=== PATIENT | female | born 1935 | race Caucasian/White ===

== ENCOUNTER 2017-04-24 11:43 | Emergency (ER) | payer OTHER, BC ==
[~2017-04-24] VITALS: Ht 157.5 cm; Wt 92.8 kg
[~2017-04-24 11:43] MED LIST: ACET325T96 PO; ASCO100061 PO; B-CO-25 PO; CALC-478 PO; CHOL1CAP57 PO; LORA-741 PO; MULT-188 PO; MULT-513 PO; OMEGCAP2 PO; SIMV10TA5 PO; VALS160T58 PO; WARF-246 PO
[2017-04-24 11:45] VITALS: TEMP 36.6; Ht 157.5 cm; Wt 92.8 kg
--- NOTE | 2017-04-24 13:33 | DIAGNOSTIC IMAGING REPORT ---
SINGLE VIEW PELVIS CLINICAL HISTORY: Right leg pain. FINDINGS: An AP view of the pelvis is compared to study dated 06/04/2015. The skeletal structures are osteopenic. No fracture is identified in the hips or bony pelvis. Moderate arthritic change and joint space narrowing is seen in the hips bilaterally. Sclerotic change is noted the pubic symphysis. The sacroiliac joints are normal in appearance. Lumbosacral spondylosis is partially visualized. Enthesophytes arise from the greater trochanters of the proximal femora. The overlying soft tissues are within normal limits. There is a nonobstructed abdominal bowel gas pattern. Retained enteric contrast is present within scattered colonic diverticula. IMPRESSION: Osteopenia and arthritic change as above. No acute bony abnormality is seen in the hips or pelvis. Electronically signed by: Sammy Piedra M.D. 04/24/2017 1:32 PM Dictated Date/Time: 04/24/2017 1:30 PM
--- NOTE | 2017-04-24 13:46 | DIAGNOSTIC IMAGING REPORT ---
RIGHT FEMUR 3 VIEWS CLINICAL HISTORY: Right leg pain. FINDINGS: AP, frog-leg, and lateral views of the right femur are correlated with radiographs of the right tibia and fibula dated 10/18/2015. The skeletal structures are osteopenic. There is no radiographic evidence of right femoral fracture. Arthritic change is noted in the right hip and knee joints. The overlying soft tissues are within normal limits. The visualized right bony pelvis appears preserved. IMPRESSION: There is no radiographic evidence of right femoral fracture. Electronically signed by: Sammy Piedra M.D. 04/24/2017 1:44 PM Dictated Date/Time: 04/24/2017 1:43 PM
--- NOTE | 2017-04-24 13:57 | DIAGNOSTIC IMAGING REPORT ---
LUMBAR SPINE 5 VIEWS CLINICAL HISTORY: Low back pain. Right leg soreness. No reported history of trauma. FINDINGS: Five views of the lumbar spine are correlated with MRI of the lumbar spine dated 11/14/2015. The skeletal structures are osteopenic. There is no radiographic evidence of acute fracture or malalignment. Vertebral body height is maintained throughout the lumbar spine. Hyperlordosis is noted. There is minimal retrolisthesis of L2-L3 and L3-L4. Alignment is otherwise preserved. There are large anterior and lateral marginal osteophytes. The transverse and spinous processes are grossly intact. There is no evidence of spondylolysis. There is moderate degenerative disc space narrowing seen at L1-L2, L4-L5, and L5-S1 with mild endplate sclerosis at these levels. Only mild narrowing is seen at the remaining lumbar levels. Multilevel vacuum disc phenomenon is noted. There is advanced facet arthropathy in the mid to lower lumbar spine. The visualized bony pelvis appears intact. A nonobstructed abdominal bowel gas pattern is identified noting moderate colonic fecal retention. IMPRESSION: 1. No acute bony abnormality is identified in the lumbosacral spine. 2. Osteopenia and lumbosacral spondylosis as detailed above. Dictated: 04/24/2017 1:37 PM Transcribed: 04/24/2017 1:56 PM [facility] Electronically signed by: Sammy Piedra M.D. 04/24/2017 1:57 PM Dictated Date/Time: 04/24/2017 1:37 PM
[2017-04-24] MEDS ORDERED: METH4PAK PO (14:24)
--- NOTE | 2017-04-24 14:25 | EMERGENCY ROOM VISIT NOTE ---
History First contact with patient: 12:20 Chief Complaint: HIP PAIN Stated Complaint: RIGHT HIP PAIN History of Present Illness The patient is a 81 year old female who presents to the Emergency Room with complaints of right hip pain. The patient has a history of low back pain and surgery last year. She has had pain in the right hip over the last several days. The patient states that she has been gardening, cleaning on her hands and knees. She states that the pain got worse when she climbed up on a stool to clean windows. She denies any falls. She denies any numbness, tingling or weakness. She denies any abdominal pain, nausea or vomiting. She denies any loss of bowel or bladder control. She rates her discomfort an 8/10. She denies any pain in her chest or trouble breathing. She denies any abdominal pain, nausea or vomiting. She has tried to get in with orthopedics but has not been able to secure an appointment. Review of Systems A 10 system review of systems was completed with positives and pertinent negatives listed in the HPI. Past Medical/Surgical History Medical Problems: (1) Degenerative disc disease (2) Degenerative disc disease, lumbar (3) DVT (deep venous thrombosis) (4) Hypertension (5) Uterine cancer Surgical Problems: (1) H/O: hysterectomy (2) Hx of appendectomy Social History Smoking Status: Never Smoker Alcohol Use: none Drug Use: none Current/Historical Medications Scheduled Ascorbic Acid (Ascorbic Acid), 1,000 MG PO QAM B-Complex W/ Folic Acid (Super B Complex Maxi), 1 TAB PO QPM Oyxyxgw-Akjbbjdjn-Pgen (Calcium & Magnesium + Zin 334-134-5 mg), 1 TAB PO QPM Cholecalciferol (Vitamin D3), 1,000 UNITS PO QPM Methylprednisolone (Medrol Dosepak), 1 PKT PO UD Multiple Vitamins W/ Minerals (Ocuvite), 1 TAB PO QAM Multivitamins/Minerals (Mvi With Minerals), 1 TAB PO QAM [place]-3 Fatty Acids (Fish Oil), 3 TAB PO DAILY Simvastatin (Zocor), 10 MG PO HS Valsartan/Hctz (Diovan Hct 160MG/12.5MG), 1 TAB PO QAM Warfarin Sodium (Warfarin Sodium), 5 TAB PO 5XWK Warfarin Sodium (Warfarin Sodium), 2.5 TAB PO 2XWK Scheduled PRN Acetaminophen Tab (Tylenol), 325 MG PO TID PRN for Pain Lorazepam (Ativan), 0.0125 MG PO for Anxiety Allergies Coded Allergies: Sertraline (Verified Adverse Reaction, Unknown, ANTIDEPRESSANTS-DIDN'T FEEL GOOD-MADE FEEL WORSE, 04/24/17) Physical Exam Vital Signs Date Time Temp Pulse Resp B/P Pulse Ox O2 Delivery O2 Flow Rate FiO2 04/24/17 14:29 67 166/94 97 Room Air 04/24/17 11:45 36.6 70 20 143/83 95 Room Air Physical Exam VITALS: Vitals are noted on the nurse's note and reviewed by myself. Vital signs stable. GENERAL: This is an 81-year-old female, in no acute distress, nondiaphoretic, well-developed well-nourished. SKIN: The skin was without rashes, erythema, edema, or bruising. There is no tenting of the skin. Capillary reflex less than 2 seconds. HEAD: Normocephalic atraumatic. EARS: External auditory canals clear, tympanic membranes pearly starks without erythema or effusion bilaterally. EYES: Pupils equal round and reactive to light and accommodation. Conjunctivae without injection, sclerae without icterus. Extraocular movements intact. NOSE: Patent, turbinates without inflammation or discharge. No sinus tenderness. MOUTH: Mucous membranes moist. Tonsils are not enlarged. Pharynx without erythema or exudate. Uvula midline. Airway patent. Tongue does not deviate. NECK: Supple without nuchal rigidity. No lymphadenopathy. No thyromegaly. Cervical spine is nontender. No JVD. HEART: Regular rate and rhythm without murmurs gallops or rubs. LUNGS: Clear to auscultation bilaterally without wheezes, rales or rhonchi. No retractions or accessory muscle use. ABDOMEN: Positive bowel sounds x 4. Soft, nontender, without masses or organomegaly. MUSCULOSKELETAL: No muscle atrophy, erythema, or edema noted. Full range of motion without joint tenderness in all extremities. No tenderness to palpation. Strength 5/5 throughout. NEURO: Patient was alert and oriented to person place and time. Normal sensation to light and sharp touch. Deep tendon reflexes 2+ throughout. No focal neurological deficits. Medical Decision & Procedures ER Provider Diagnostic Interpretation: RIGHT FEMUR 3 VIEWS CLINICAL HISTORY: Right leg pain. FINDINGS: AP, frog-leg, and lateral views of the right femur are correlated with radiographs of the right tibia and fibula dated 10/18/2015. The skeletal structures are osteopenic. There is no radiographic evidence of right femoral fracture. Arthritic change is noted in the right hip and knee joints. The overlying soft tissues are within normal limits. The visualized right bony pelvis appears preserved. IMPRESSION: There is no radiographic evidence of right femoral fracture. LUMBAR SPINE 5 VIEWS CLINICAL HISTORY: Low back pain. Right leg soreness. No reported history of trauma. FINDINGS: Five views of the lumbar spine are correlated with MRI of the lumbar spine dated 11/14/2015. The skeletal structures are osteopenic. There is no radiographic evidence of acute fracture or malalignment. Vertebral body height is maintained throughout the lumbar spine. Hyperlordosis is noted. There is minimal retrolisthesis of L2-L3 and L3-L4. Alignment is otherwise preserved. There are large anterior and lateral marginal osteophytes. The transverse and spinous processes are grossly intact. There is no evidence of spondylolysis. There is moderate degenerative disc space narrowing seen at L1-L2, L4-L5, and L5-S1 with mild endplate sclerosis at these levels. Only mild narrowing is seen at the remaining lumbar levels. Multilevel vacuum disc phenomenon is noted. There is advanced facet arthropathy in the mid to lower lumbar spine. The visualized bony pelvis appears intact. A nonobstructed abdominal bowel gas pattern is identified noting moderate colonic fecal retention. IMPRESSION: 1. No acute bony abnormality is identified in the lumbosacral spine. 2. Osteopenia and lumbosacral spondylosis as detailed above. SINGLE VIEW PELVIS CLINICAL HISTORY: Right leg pain. FINDINGS: An AP view of the pelvis is compared to study dated 06/04/2015. The skeletal structures are osteopenic. No fracture is identified in the hips or bony pelvis. Moderate arthritic change and joint space narrowing is seen in the hips bilaterally. Sclerotic change is noted the pubic symphysis. The sacroiliac joints are normal in appearance. Lumbosacral spondylosis is partially visualized. Enthesophytes arise from the greater trochanters of the proximal femora. The overlying soft tissues are within normal limits. There is a nonobstructed abdominal bowel gas pattern. Retained enteric contrast is present within scattered colonic diverticula. IMPRESSION: Osteopenia and arthritic change as above. No acute bony abnormality is seen in the hips or pelvis. ED Course The patient was seen and examined. Previous visits were reviewed. Medication list was reviewed. The patient does not have any neurologic deficit on exam or by history. The patient complains of right hip pain and states she has been "overdoing it." X-rays reveal osteoarthritis. The potentially be an exacerbation of the arthritis. It is possible this could be radicular pain. Bursitis of the hip is also considered. The patient has been taking Tylenol. She does take Coumadin and therefore she should avoid anti-inflammatories. The patient states that steroids typically help her and was adamant that she would like to try prednisone. She was counseled on the risk of potential bleeding when taking a combination with the Coumadin. The patient should contact orthopedics on Wednesday for a follow-up appointment. Should return to the ER sooner with any worsening symptoms. The patient was also seen and examined by Dr. Khan who agrees with the assessment and treatment plan. Medical Decision DIFFERENTIAL DIAGNOSIS: Lumbar strain, degenerative disc disease, spondylolisthesis, herniated disc, spinal stenosis, osteoporosis, fracture, cauda equina syndrome, neoplasm, infection, inflammatory arthritis, among others. Impression Primary Impression: Osteoarthritis Additional Impression: Hip pain Departure Information Dispostion Home / Self-Care Condition GOOD Prescriptions Methylprednisolone (MEDROL DOSEPAK) 4 Mg Bruce 1 PKT PO UD, #1 PKT Prov: Rebecca Marks PA-C 04/24/17 Referrals Mynor Rivero DO (PCP) Patient Instructions [facility], Osteoarthritis Additional Instructions Medrol Dosepak as prescribed, until finished Continue the Tylenol according to package instructions Rest Contact orthopedics first thing Wednesday for a follow-up appointment Return with any worsening symptoms Problem Qualifiers Primary Impression: Osteoarthritis
[2017-04-24 14:29] VITALS: BP 166/94; PULSE 67; O2SAT 97
--- NOTE | 2017-04-24 15:12 | EMERGENCY ROOM VISIT NOTE ---
ED Visit Note First contact with patient: 12:20 I have personally evaluated and examined this patient. I agree with assessment and plan of Rosanne Marks PA-C.
[2017-09-14] MEDS ORDERED: MECL1TAB40 PO (11:59)
[2017-09-14] MEDS ORDERED: MULT-190 PO (11:59)
[2017-09-14] MEDS ORDERED: [UNRECOGNIZED DRUG - OTHER] PO (11:59)
[2017-09-14] MEDS ORDERED: VNTHFA/IN INH (12:06)
[2017-10-04] MEDS ORDERED: ENOX80IN SQ (08:08)
[2017-10-06] MEDS ORDERED: ULT50X PO (09:05)
== END 2017-04-24 14:33 | disposition home or self-care (01) ==
LOC: C.EDB 11:45 → C.EDD 14:33
DX: M16.11 Unilateral primary osteoarthritis, right hip (principal); M25.551 Pain in right hip; M85.89 Other specified disorders of bone density and structure, multiple sites; M47.816 Spondylosis without myelopathy or radiculopathy, lumbar region; M51.36 Other intervertebral disc degeneration, lumbar region; Z86.718 Personal history of other venous thrombosis and embolism; I10 Essential (primary) hypertension; Z85.42 Personal history of malignant neoplasm of other parts of uterus; Z90.710 Acquired absence of both cervix and uterus; Z79.01 Long term (current) use of anticoagulants

== ENCOUNTER 2019-01-20 07:12 | Inpatient (IN) ==
--- NOTE | 2018-12-26 09:54 | PAT Medication Instructions ---
Medication Instructions Date of Service December 26, 2018 Home Medications Calcium, Magnesium, Vitamin D, Zinc 1 dose PO DAILY ascorbic acid (vitamin C) [Vitamin 1 g PO DAILY cholecalciferol (vitamin D3) 1,000 unit PO DAILY losartan-hydrochlorothiazide 1 tab PO QAM multivitamin [Multiple Vitamins] 1 tab PO 4XWK mv, min #36-iron,carbonyl-FA 1 dose PO 3XWK simvastatin 10 mg PO HS vitamin B complex 1 cap warfarin 2.5 mg PO UD warfarin 5 mg PO 6XWK ASK your prescriber and surgeon warfarin 2.5 mg PO UD warfarin 5 mg PO 6XWK DO NOT take the morning of surgery Calcium, Magnesium, Vitamin D, Zinc 1 dose PO DAILY ascorbic acid (vitamin C) [Vitamin 1 g PO DAILY cholecalciferol (vitamin D3) 1,000 unit PO DAILY losartan-hydrochlorothiazide 1 tab PO QAM multivitamin [Multiple Vitamins] 1 tab PO 4XWK mv, min #36-iron,carbonyl-FA 1 dose PO 3XWK vitamin B complex 1 cap Other Notes If you have any questions please call us at [phone] or [phone] or [phone] or [phone]
--- NOTE | 2018-12-26 10:24 | Anesthesiology Consultation ---
Date of Service December 26, 2018 Assessment & Plan (1) Encounter for pre-operative examination: Plan: - Check coags AM DOS (patient to have lovenox bridging prior to surgery) - Cardio= 01/09/19= asymptomatic from a cardiac standpoint. "can proceed with her surgery from a cardiac standpoint." Chart Review Chart Review: Acceptable Risk for Surgery and Patient seen in Pre Admission Testing Teaching & Discussion Pre-Anesthesia Teaching/Discussion Notes: Instructed NPO after midnight before surgery,except medications with 15 cc of water. Medication instructions provided according to the PAT guidelines. History Surgery Operation Date: 01/20/19 07:00 Proposed Procedures p Left Anterior Total Hip Replacement - Mynor Rivero, Height/Weight Height: 5 ft 1 in Weight: 91.8 kg Allergies Allergy/AdvReac Type Severity Reaction Status Date / Time adhesive Allergy Unknown SKIN Verified 12/12/18 09:03 PULLED OFF WITH TAPE sertraline AdvReac Unknown DIDN'T Verified 12/26/18 10:23 WORK; "FELT WORSE" Medications Home Medications Medication Instructions Recorded Confirmed Last Taken Calcium, Magnesium, Vitamin D, Zinc 1 dose PO DAILY 12/12/18 12/12/18 Unknown ascorbic acid (vitamin C) [Vitamin 1 g PO DAILY 12/12/18 12/12/18 Unknown C] cholecalciferol (vitamin D3) 1,000 unit PO DAILY 12/12/18 12/12/18 Unknown [Vitamin D3] losartan-hydrochlorothiazide 1 tab PO QAM 12/12/18 12/12/18 Unknown multivitamin [Multiple Vitamins] 1 tab PO 4XWK 12/12/18 12/12/18 Unknown mv, min #36-iron,carbonyl-FA 1 dose PO 3XWK 12/12/18 12/12/18 Unknown [Geritol Complete] simvastatin 10 mg PO HS 12/12/18 12/12/18 Unknown vitamin B complex 1 cap PO DAILY 12/12/18 12/12/18 Unknown warfarin 2.5 mg PO UD 12/12/18 12/12/18 Unknown warfarin 5 mg PO 6XWK 12/12/18 12/12/18 Unknown Past Medical History Medical History Anxiety Arthritis History of DVT (deep vein thrombosis) LLE (2000) S/P TRAUMA/FRACTURE- ON WARFARIN History of uterine cancer Hypertension Obesity Sleep apnea CPAP Past Surgical History Surgical History History of appendectomy History of back surgery History of colonoscopy History of eye surgery EYE LID SURGERY History of hysterectomy TOTAL History of open reduction and internal fixation (ORIF) procedure LUE/ELBOW History of total right hip arthroplasty Right MARIA L= 10/04/17= SAB x 3 attempts at "L3" at [facility] Past Anesthesia History No Family Hx of Anesthesia Complications and Other Patient reports "hearing pounding" with right MARIA L. History of PONV No Motion Sickness Screening History of Motion Sickness: Yes (OCCASIONAL) Social History Smoking Status: Never smoker Do You Dip or Chew Tobacco: No Hx Alcohol Use: No Hx Substance Use: No substance use type: does not use Exercise / Class Metabolic Activity II 4-5 Yardwork/Stairs/Walk up hill Review of Systems Patient denies chest pain, shortness of breath, dyspnea on exertion, wheezing, palpitations. Physical Exam Vital Signs VITALS BP 133/76 P 70 TEMP 97.5 SP02 92%RA RESP 18 Full neck and c-spine range of motion. Full TMJ range of motion. 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 Cannot rule out inferior infarct ( cited on/before 12/02/15 per cardio). Chest X-Ray Date: 12/26/18 Findings: + NAD Chronic change throughout both hemithoraces. Laboratory Results 12/26/18 10:50 12/26/18 10:50 Blood Type O Positive 12/26/18 10:55 Antibody Screen NEGATIVE 12/26/18 10:55 PT 22.2 Seconds (9.0-12.0) H 12/26/18 10:50 INR 2.3 (0.9-1.1) H 12/26/18 10:50 APTT 38.0 Seconds (21.0-31.0) H 12/26/18 10:50 Surgeon made aware of low WBC.
--- NOTE | 2018-12-26 11:22 | XRay Report ---
XR chest Pre-admission PA/Lat CLINICAL HISTORY: pat preoperative evaluation COMPARISON STUDY: 12/02/2015 FINDINGS: Chronic change throughout both hemithoraces. Moderate degenerative changes of the shoulders bilaterally. No acute infiltrate. Degenerative changes thoracic spine considered stable. IMPRESSION: Chronic change. No acute process. The above report was generated using voice recognition software. It may contain grammatical, syntax or spelling errors. Electronically signed by: Cheko Bella M.D. 12/26/2018 11:21 AM
[2018-12-26 12:26] LABS: Basophils # (auto) 0.04 K/uL (0-0.2); Basophils % (auto) 1.1 %; Eosinophils # (auto) 0.11 K/uL (0-0.5); Hematocrit (blood only) 43.5 % (37-47); Hemoglobin 14.6 g/dL (12.0-16.0); Immature Granulocytes # (auto) 0.01 K/uL (0.00-0.02); Immature Granulocytes % (auto) 0.3 %; Lymphocytes # (auto) 1.37 K/uL (1.2-3.4); Lymphocytes % (auto) 37.8 %; Mean Corpuscular Hgb Conc 33.6 g/dL (32-36); Mean Platelet Volume 10.4 fL (7.4-10.4); Monocytes # (auto) 0.45 K/uL (0.11-0.59); Monocytes % (auto) 12.4 %; Neutrophils # (auto) 1.64 K/uL (1.4-6.5); Neutrophils % (auto) 45.4 %; Platelet Count 251 K/uL (130-400); RDW Coefficient of Variation 13.8 % (11.5-14.5); RDW Standard Deviation 45.9 fL (36.4-46.3); Red Blood Count 4.78 M/uL (4.2-5.4); White Blood Count 3.62 K/uL (4.8-10.8)
[2018-12-26 12:34] LABS: Calcium 9.8 mg/dl (8.5-10.1); Creatinine Clr Calc Pharmacy 48.7 ml/min; Est GFR (African American) 67.2
[2018-12-26 12:39] LABS: INR 2.3 (0.9-1.1); Partial Thromboplastin Ratio 1.5; Prothrombin Time 22.2 Seconds (9.0-12.0)
--- NOTE | 2019-01-18 07:46 | History & Physical Report ---
Date of Service January 18, 2019 Assessment & Plan (1) Osteoarthritis of left hip: We will proceed with a left anterior total hip arthroplasty. Postoperatively she will be bridged with Lovenox and started back on her Coumadin. She will be kept in the hospital for postop medical management. She plans to use [facility] upon discharge. Present on Admission?: Yes History of Present Illness Chief Complaint: Primary osteoarthritis of the left hip Primary Care Provider: Nicolette Jernigan Patient is a pleasant 83-year-old female who I did a right total hip arthroplasty on September 2017. She is done very well with that. Unfortunately she is having left hip pain. X-rays and clinical examination have been diagnostic for primary also arthritis of the left hip. After failing conservative treatment, she has elected proceed with a left total hip arthroplasty. Allergies Allergy/AdvReac Type Severity Reaction Status Date / Time adhesive Allergy Unknown SKIN Verified 12/12/18 09:03 PULLED OFF WITH TAPE sertraline AdvReac Unknown DIDN'T Verified 12/26/18 10:23 WORK; "FELT WORSE" Home Medications Home Medications Medication Instructions Recorded Confirmed Type Calcium, Magnesium, Vitamin D, Zinc 1 dose PO DAILY 12/12/18 12/12/18 History ascorbic acid (vitamin C) [Vitamin 1 g PO DAILY 12/12/18 12/12/18 History C] cholecalciferol (vitamin D3) 1,000 unit PO DAILY 12/12/18 12/12/18 History [Vitamin D3] losartan-hydrochlorothiazide 1 tab PO QAM 12/12/18 12/12/18 History multivitamin [Multiple Vitamins] 1 tab PO 4XWK 12/12/18 12/12/18 History mv, min #36-iron,carbonyl-FA 1 dose PO 3XWK 12/12/18 12/12/18 History [Geritol Complete] simvastatin 10 mg PO HS 12/12/18 12/12/18 History vitamin B complex 1 cap PO DAILY 12/12/18 12/12/18 History warfarin 2.5 mg PO UD 12/12/18 12/12/18 History warfarin 5 mg PO 6XWK 12/12/18 12/12/18 History Past Med/Surg History Medical History Anxiety Arthritis History of DVT (deep vein thrombosis) LLE (2000) S/P TRAUMA/FRACTURE- ON WARFARIN History of uterine cancer Hypertension Obesity Sleep apnea CPAP Surgical History History of appendectomy History of back surgery History of colonoscopy History of eye surgery EYE LID SURGERY History of hysterectomy TOTAL History of open reduction and internal fixation (ORIF) procedure LUE/ELBOW History of total right hip arthroplasty Right MARIA L= 10/04/17= SAB x 3 attempts at "L3" at [facility] Social History Current Living Situation: Alone Other Information That Helps Us Care for You: No Feels Safe at Home: Yes Smoking Status: Never smoker Do You Dip or Chew Tobacco: No Hx Alcohol Use: No Hx Substance Use: No Beliefs That Will Affect Care: None Preferred Language: Croatian Communication Ability: Effective Watch Crystal Molder Required: No Review of Systems All systems reviewed & are unremarkable except as noted in HPI & below Physical Exam 2 Constitutional: WD/WN, vitals as above Eyes: PERRL, conjunctivae normal, anicteric sclerae ENMT: external ear and nose normal, oropharynx normal Neck: trachea midline, no thyromegaly Respiratory: normal respiratory effort Cardiovascular: RRR, no murmur, no edema Gastrointestinal (Abdomen): normal bowel sounds, soft, nontender, no hepatosplenomegaly Musculoskeletal: Physical examination of the left hip reveals decreased range of motion with flexion, internal and external rotation. There is significant groin pain with forced internal rotation of the hip his leg lengths are essentially equal. Psychiatric: A+Ox3, euthymic affect Results & Data Diagnostic Findings Radiographs of the left hip and pelvis demonstrate advanced osteoarthritis with joint space narrowing osteophyte formation and [id number] articulation.
[~2019-01-20 07:12] MED LIST changes: -ACET325T96 PO; +ACETAMINOPHEN 500 MG TAB PO SCH; -ASCO100061 PO; -B-CO-25 PO; +BUPIVACAINE 0.5 % 5 MG/1 ML PF 10ML VIAL ONE; -CALC-478 PO; -CHOL1CAP57 PO; +FAMOTIDINE 20 MG TAB PO SCH; +GABAPENTIN 300 MG PO SCH; -LORA-741 PO; +LR 60ML/HR IV SCH; -MULT-188 PO; -MULT-513 PO; -OMEGCAP2 PO; +ROPIVACAINE 0.5% HCL/PF 150 MG, BUPIVACAINE 0.5% MPF 30 ML, EPINEPHrine 30MG/30ML (OR U... INFIL SCH; -SIMV10TA5 PO; +TRANEXAMIC ACID 1,000 MG **IV Intra-op IV SCH; +TRANEXAMIC ACID 1,000 MG **IV Pre-op IV SCH; -VALS160T58 PO; -WARF-246 PO
[2019-01-20] MEDS ORDERED: fentaNYL citrate 100 MCG/2 ML VIAL ONE (07:22)
[2019-01-20] MEDS ORDERED: PROPOFOL IV EMULSION 10 MG/ML 20 ML VIAL IV ONE (07:22)
[2019-01-20] MEDS ORDERED: MIDAZOLAM HCL 1 MG/ML 2ML VIAL ONE (07:23)
[2019-01-20] MEDS: LR 500ML BOLUS, THEN 15ML/HR IV SCH ×6 (08:20→14:55)
[2019-01-20 08:23] LABS: INR 1.1 (0.9-1.1); Partial Thromboplastin Ratio 1.1; Partial Thromboplastin Time 29.1 Seconds (21.0-31.0); Prothrombin Time 11.1 Seconds (9.0-12.0)
--- NOTE | 2019-01-20 09:26 | History & Physical Bridge Note ---
Date of Service January 20, 2019 History & Physical Bridge Note I have examined the patient, reviewed the History & Physical and in the interval since the performance of the History & Physical I have noted the following changes of clinical significance: no changes noted
[2019-01-20] MEDS ORDERED: POVIDONE-IODINE OP SOLN 30 ML BTL ONE (09:52)
[2019-01-20] MEDS ORDERED: ORTHO JOINT ANESTHETIC ONE (09:52)
[2019-01-20] MEDS ORDERED: PHENYLEPHRINE 100MCG/ML 5ML SYR IV PRN (10:06)
[2019-01-20] MEDS ORDERED: HYDROmorphone INJ 1 MG/ML SYRINGE IV PRN (10:06)
[2019-01-20] MEDS ORDERED: KETOROLAC 30 MG/ML VIAL IV PRN (10:06)
[2019-01-20] MEDS ORDERED: ONDANSETRON INJ 2 MG/ML 2 ML VIAL IV PRN ×2 (10:06→12:24)
[2019-01-20] MEDS ORDERED: ATROPINE SULFATE 0.1 MG/ML 10ML SYR IV PRN (10:06)
[2019-01-20] MEDS ORDERED: ePHEDrine sulfate 50 MG/ML AMP IV PRN (10:06)
[2019-01-20] MEDS: CEFAZOLIN 2000MG 2,000 MG/15 ML SYR IV SCH ×3 (10:39→19:40)
--- NOTE | 2019-01-20 12:21 | Operative Report ---
Post Operative Report Pre & Post Diagnosis Operation Date: 01/20/19 10:00 Pre-Op Diagnosis: Left Hip Degenerative Joint Disease Post-Op Diagnosis: Left Hip Degenerative Joint Disease Procedure Operation Date: 01/20/19 10:00 Actual Procedures p Left Anterior Total Hip Replacement(Left) - Mynor Rivero DO Surgeon Mynor Rivero DO Csr Mynor Suarez PAC Estimated Blood Loss 250 Findings Consistent with Post-Op Diagnosis Specimens Left femoral head Complications none Disposition Disposition: Recovery Room Indications Patient is a pleasant 83-year-old female who is been dealing with chronic increasing left hip pain. X-rays and clinical examination were diagnostic for primary osteoarthritis of her left hip. After failing conservative treatment, she is elected proceed with a left total hip arthroplasty. Description of Procedure Implants used Biomet Taperloc total hip arthroplasty system with a size 15 Taperloc stem, a 52 mm G7 cup with a 25mm screw, an E1 polyethylene liner, a 36 mm ceramic head with a 0 neck. Patient arrived at the hospital for the above procedure. They were seen in the preoperative holding area and the operative extremity was identified and signed. They were given a spinal anesthetic. They were given a preoperative antibiotic and TXA. They were taken back To the operating room and laid on the table in the supine position. The leg was brought out through a Puristst leg positioner. The hip was then prepped and draped in sterile fashion. A timeout was done and the patient in upper extremities properly identified. An anterior approach was used. Dissection was taken down through the fascia and the tensor muscle belly was retracted laterally and the rectus was retracted medially. The circumflex vessels were identified and ligated. The capsule was then incised and tagged for later repair. The femoral neck was then cut and the femoral head was removed. The acetabulum was exposed. Time was spent doing a complete circumferential labral release. Sequential reaming of the acetabulum up to a size 51 reamer was done. Final reamings were done under fluoroscopy to ensure appropriate version. A Biomet 52 mm G7 cup was then impacted into place. A single 25 mm screw was placed. The E1 polyethylene liner was then snapped into place. Surrounding soft tissues were then injected with 100 cc of an orthopedic pain control cocktail. The proximal femur was then exposed. Sequential broaching up to a size 15 broach was done. Off that broach a size 36 head with a 0 neck was trialed. The hip was reduced and fluoroscopic images showed anatomic alignment of the implants in acceptable length. The broach was removed. The final size 15 high offset Taperloc stem was then impacted into place. A ceramic 36 mm head with a 0 neck was then impacted into place in the hip was reduced. Final fluoroscopic images showed anatomic reduction of the hip. The capsule was then closed with # 1 Vicryl suture. A dilute betadyne lavage was then done for 3 minutes. The joint was then irrigated with normal saline solution. The fascia was closed with #1 PDS suture. Skin was closed with 2-0 Vicryl, geno, and a Kate VAC dressing. The patient was then transferred to a hospital bed and taken to the post anesthesia care unit in stable condition. They tolerated the procedure well. I attest to the content of the Intraoperative Record and any orders documented therein. Any exceptions are noted below.
[2019-01-20] MEDS ORDERED: OXYCODONE HCL IR 5 MG TAB (IMMEDIATE RELEASE) PO PRN (12:24)
[2019-01-20] MEDS ORDERED: BISACODYL 10 MG SUPP PR PRN (12:24)
[2019-01-20] MEDS ORDERED: HYDROmorphone INJ 0.5 MG/0.5 ML SYR IV PRN (12:24)
[2019-01-20] MEDS ORDERED: MAGNESIUM HYDROXIDE SUSP 30 ML UDC PO PRN (12:24)
[2019-01-20] MEDS ORDERED: NALOXONE HCL 0.4 MG/1 ML VIAL/CARP IV PRN (12:24)
[2019-01-20] MEDS ORDERED: METOCLOPRAMIDE HCL INJ 5 MG/ML 2 ML VIAL IV PRN (12:24)
--- NOTE | 2019-01-20 12:51 | Fluoroscopy Report ---
FL hip LT 1V CLINICAL HISTORY: LEFT ANTERIOR MARIA L COMPARISON STUDY: None. FLUOROSCOPY TIME: 27 seconds. FINDINGS: 2 fluoroscopic spot images of the left hip demonstrate a left total hip arthroplasty. The h ardware is intact. No fracture or dislocation. IMPRESSION: Fluoroscopy provided for left total hip arthroplasty. Electronically signed by: Musa Spears M.D. 01/20/2019 12:50 PM
--- NOTE | 2019-01-20 13:08 | XRay Report ---
PELVIS AND LEFT HIP 2 VIEWS CLINICAL HISTORY: Hip arthroplasty COMPARISON: 10/04/2017 DISCUSSION: The right-sided surgical drain and skin geno have been removed. The total right hip ar throplasty remains unchanged in appearance. There is now evidence for total left hip arthroplasty. Th e acetabular femoral components appear well seated. There is no dislocation. There are overlying skin geno. There is air within the soft tissues consistent with recent surgery. IMPRESSION: Postsurgical changes of a total left hip arthroplasty. Electronically signed by: Adriano Moore M.D. 01/20/2019 1:06 PM
--- NOTE | 2019-01-20 13:27 | Anesthesiology Progress Note ---
Date of Service January 20, 2019 Anesthesia Post Procedure Vital Signs Vital Signs: Temp Pulse Pulse Resp BP Pulse Ox 01/20/19 13:15 68 17 138/70 100 01/20/19 13:05 69 13 143/71 H 100 01/20/19 12:55 71 18 155/71 H 100 01/20/19 12:45 73 14 154/80 H 100 01/20/19 12:36 36.0 C L 79 15 171/81 H 100 01/20/19 08:03 36.8 C 72 18 153/78 H 96 Pain Intensity Left Hip: Pain Intensity: 0 Notes Mental Status: alert / awake / arousable Patient Amnestic to Procedure: Yes Nausea / Vomiting: adequately controlled Pain: adequately controlled Airway Patency, RR, SpO2: stable & adequate BP & HR: stable & adequate Hydration State: stable & adequate Neuraxial Anesthesia: was administered and sensory block is resolving Anesthetic Complications: no major complications apparent
[2019-01-20] MEDS ORDERED: [UNRECOGNIZED DRUG - OTHER] PO SCH (13:53)
[2019-01-20] MEDS: SODIUM CHLORIDE 0.9% 1000ML 1,000 ML IV SCH (14:28)
[2019-01-20] MEDS: ACETAMINOPHEN 500 MG TAB PO SCH ×2 (14:42→21:08)
[2019-01-20] MEDS: KETOROLAC TROMETHAMINE 15 MG/ML VIAL IV SCH ×2 (14:42→19:41)
[2019-01-20] MEDS: WARFARIN SOD 5 MG TAB PO SCH ×2 (15:35→17:42)
[2019-01-20] MEDS ORDERED: WARFARIN SOD 5 MG TAB PO SCH (18:30)
[2019-01-20] MEDS ORDERED: SENNA 8.6 MG TAB PO SCH (21:00)
[2019-01-20] MEDS ORDERED: SIMVASTATIN 10 MG TAB PO SCH (21:00)
[2019-01-20] MEDS: DOCUSATE SODIUM 100 MG CAP PO SCH (21:08)
[2019-01-21] MEDS: SODIUM CHLORIDE 0.9% 1000ML 1,000 ML IV SCH (00:37)
[2019-01-21] MEDS: KETOROLAC TROMETHAMINE 15 MG/ML VIAL IV SCH ×3 (02:55→12:51)
[2019-01-21] MEDS: CEFAZOLIN 2000MG 2,000 MG/15 ML SYR IV SCH (02:55)
[2019-01-21] MEDS: ACETAMINOPHEN 500 MG TAB PO SCH ×2 (05:33→12:50)
[2019-01-21 06:27] LABS: Basophils # (auto) 0.01 K/uL (0-0.2); Basophils % (auto) 0.1 %; Hematocrit (blood only) 33.1 % (37-47); Hemoglobin 10.9 g/dL (12.0-16.0); Immature Granulocytes # (auto) 0.03 K/uL (0.00-0.02); Immature Granulocytes % (auto) 0.3 %; Lymphocytes # (auto) 0.92 K/uL (1.2-3.4); Lymphocytes % (auto) 7.9 %; Mean Corpuscular Hgb Conc 32.9 g/dL (32-36); Mean Corpuscular Volume 91.4 fL (80-100); Mean Platelet Volume 9.8 fL (7.4-10.4); Monocytes # (auto) 1.05 K/uL (0.11-0.59); Neutrophils # (auto) 9.69 K/uL (1.4-6.5); Neutrophils % (auto) 82.7 %; Platelet Count 214 K/uL (130-400); RDW Coefficient of Variation 13.6 % (11.5-14.5); RDW Standard Deviation 45.7 fL (36.4-46.3); Red Blood Count 3.62 M/uL (4.2-5.4)
[2019-01-21 06:55] LABS: INR 1.1 (0.9-1.1); Prothrombin Time 11.3 Seconds (9.0-12.0)
[2019-01-21 07:06] LABS: Calcium 8.2 mg/dl (8.5-10.1); Creatinine Clr Calc Pharmacy 45.9 ml/min; Est GFR (Non-African American) 54.4; Potassium 3.6 mmol/L (3.5-5.1)
[2019-01-21] MEDS: DOCUSATE SODIUM 100 MG CAP PO SCH (08:39)
--- NOTE | 2019-01-21 08:45 | Orthopedic Progress Note ---
Date of Service January 21, 2019 Assessment & Plan (1) Osteoarthritis of left hip: Overall she is doing very well. She is not having much pain in the left hip at all. She is been ambulating well. She will be seen by physical therapy today. She is on Lovenox and Coumadin for DVT prophylaxis. She can be discharged home later today. She will get home physical therapy starting tomorrow. She will follow-up with orthopedics in 2 weeks. Present on Admission?: Yes Subjective Patient was seen and examined at bedside this morning. Overall she is doing very well. She is been up and ambulating around the room. She does not have a much pain. She has no complaints. Physical Exam 2 Vital Signs (Past 24 Hours): Last Vital Signs Temp 36.6 C 01/21/19 07:50 Pulse 75 01/21/19 07:50 Resp 18 01/21/19 07:50 BP 121/71 01/21/19 07:50 Pulse Ox 95 01/21/19 07:50 Musculoskeletal: On physical examination of the left hip, the Kate VAC dressing is to suction. Her leg lengths are equal. She is active dorsiflexion and plantarflexion of the left ankle. Sensation is intact throughout. Results & Data Laboratory Results H & H 12/26/18 01/21/19 Range/Units 10:50 06:05 Hgb 14.6 10.9 L (12.0-16.0) g/dL Hct 43.5 33.1 L (37-47) % Coagulation 12/26/18 01/20/19 01/21/19 Range/Units 10:50 08:04 06:05 INR 2.3 H 1.1 1.1 (0.9-1.1) Diagnostic Findings X-rays postoperatively of the left hip show the prosthesis to be in anatomic alignment without any evidence of fracture, dislocation, or loosening.
--- NOTE | 2019-01-21 08:47 | Discharge Summary ---
Date of Service January 21, 2019 Admission HPI Per Admitting Provider Patient is a pleasant 83-year-old female who I did a right total hip arthroplasty on September 2017. She is done very well with that. Unfortunately she is having left hip pain. X-rays and clinical examination have been diagnostic for primary also arthritis of the left hip. After failing conservative treatment, she has elected proceed with a left total hip arthroplasty. Specialty Data Orthopedic H & H 12/26/18 01/21/19 Range/Units 10:50 06:05 Hgb 14.6 10.9 L (12.0-16.0) g/dL Hct 43.5 33.1 L (37-47) % Coagulation 12/26/18 01/20/19 01/21/19 Range/Units 10:50 08:04 06:05 INR 2.3 H 1.1 1.1 (0.9-1.1) Discharge Data Consultations 01/21/19 08:00 Consult Case Management - Discharge Planning Routine Procedures Performed Operation Date: 01/20/19 10:00 Actual Procedures p Left Anterior Total Hip Replacement(Left) - Mynor Rivero DO Hospital Course (1) Osteoarthritis of left hip: On January 20, 2019 patient arrived at [facility] and underwent a left anterior total of arthritis without complication. She had a general anesthetic. Postoperatively she was started back on her Coumadin and Lovenox for DVT prophylaxis and discharged to general orthopedic floors. Her hospital course was uneventful. On postop day #1 her H&H was stable and her pain was well controlled. She was able to ambulate well with physical therapy. She was subsequently discharged home with [facility]. She will follow-up with orthopedics in 2 weeks. Discharge Instructions Home Medications Medication Instructions Recorded Confirmed Calcium, Magnesium, Vitamin D, Zinc 1 dose PO DAILY 12/12/18 01/20/19 ascorbic acid (vitamin C) [Vitamin 1 g PO DAILY 12/12/18 01/20/19 C] cholecalciferol (vitamin D3) 1,000 unit PO DAILY 12/12/18 01/20/19 [Vitamin D3] losartan-hydrochlorothiazide 1 tab PO QAM 12/12/18 01/20/19 multivitamin [Multiple Vitamins] 1 tab PO 4XWK 12/12/18 01/20/19 mv, min #36-iron,carbonyl-FA 1 dose PO 3XWK 12/12/18 01/20/19 [Geritol Complete] simvastatin 10 mg PO HS 12/12/18 01/20/19 vitamin B complex 1 cap PO DAILY 12/12/18 01/20/19 warfarin 2.5 mg PO UD 12/12/18 12/12/18 warfarin 5 mg PO 6XWK 12/12/18 01/20/19 Lovenox 100 mg INJ DAILY 01/20/19 01/20/19
[2019-01-21] MEDS ORDERED: ENOXAPARIN 100 MG/1ML SYR SC SCH (09:00)
[2019-01-21] MEDS ORDERED: MAGNESIUM PO SCH (09:00)
[2019-01-21] MEDS ORDERED: hydroCHLOROthiazide 25 MG TAB PO SCH (09:00)
[2019-01-21] MEDS ORDERED: ASCORBIC ACID 500 MG TAB PO SCH (09:00)
[2019-01-21] MEDS ORDERED: VITAMIN B COMPLEX TAB PO SCH (09:00)
[2019-01-21] MEDS ORDERED: ZINC PO SCH (09:00)
[2019-01-21] MEDS ORDERED: LOSARTAN POTASSIUM 50 MG TAB PO SCH (09:00)
[2019-01-21] MEDS ORDERED: MULTIVITAMIN TAB PO SCH (09:00)
[2019-01-21] MEDS ORDERED: CALCIUM PO SCH (09:00)
[2019-01-21] MEDS ORDERED: CHOLECALCIFEROL 1,000 UNITS TAB PO SCH (09:00)
[2019-01-21] MEDS ORDERED: VITAMIN D PO SCH (09:00)
[2019-01-26] MEDS ORDERED: WARFARIN SOD 2.5 MG TAB PO SCH ×2 (16:00→18:30)
== END 2019-01-21 14:02 | disposition home health service (06) | DRG 470 ==
LOC: ASU 07:12 → 3E 12:27

== ENCOUNTER 2019-07-14 07:18 | Inpatient (IN) ==
--- NOTE | 2019-07-05 09:35 | PAT Medication Instructions ---
Medication Instructions Date of Service July 05, 2019 Home Medications Geritol Complete 1 dose PO 3XWK ascorbic acid (vitamin C) [Vitamin C] 1 g PO DAILY cholecalciferol (vitamin D3) [Vitamin D3] 1,000 unit PO DAILY losartan-hydrochlorothiazide 1 tab PO QAM multivitamin [Multiple Vitamins] 1 tab PO 4XWK simvastatin 10 mg PO HS vitamin B complex 1 cap PO DAILY warfarin 2.5 mg PO 2XWK warfarin 5 mg PO 5XWK ASK your prescriber and surgeon warfarin 2.5 mg PO 2XWK warfarin 5 mg PO 5XWK DO NOT take the morning of surgery Geritol Complete 1 dose PO 3XWK ascorbic acid (vitamin C) [Vitamin C] 1 g PO DAILY cholecalciferol (vitamin D3) [Vitamin D3] 1,000 unit PO DAILY losartan-hydrochlorothiazide 1 tab PO QAM multivitamin [Multiple Vitamins] 1 tab PO 4XWK vitamin B complex 1 cap PO DAILY Other Notes If you have any questions please call us at [phone] or [phone] or [phone] or [phone]
--- NOTE | 2019-07-05 11:34 | Anesthesiology Consultation ---
Date of Service July 05, 2019 Assessment & Plan (1) Encounter for pre-operative examination: - Warfarin instructions: per surgeon/coag clinic. Check coags AM DOS. - Cardio: 01/09/19: seen prior to 12/2018 left MARIA L- Asymptomatic from a cardiac standpoint. "can proceed with her surgery from a cardiac standpoint." - Discussed SAB vs. GA: Left MARIA L: 01/20/19: SAB x 1 attempt at L3-L4, MAC transitioned to general with LMA#4 due to patient inability to tolerate surgical stimulation despite spinal anesthesia. Chart Review Chart Review: Acceptable Risk for Surgery and Patient seen in Pre Admission Testing Teaching & Discussion Pre-Anesthesia Teaching/Discussion Notes: Instructed NPO after midnight before surgery,except medications with 15 cc of water. Medication instructions provided according to the PAT guidelines. History Surgery Operation Date: 07/14/19 13:55 Proposed Procedures p Right Total Knee Arthroplasty - Mynor Rivero, DO Height/Weight Height: 5 ft 1 in Weight: 85.3 kg Allergies Allergy/AdvReac Type Severity Reaction Status Date / Time adhesive Allergy Unknown "skin Verified 07/05/19 12:27 pulled off" with adhesive sertraline AdvReac Unknown worsening Verified 07/05/19 12:27 of symptoms, "didn't work" Medications Home Medications Medication Instructions Recorded Confirmed Last Taken Geritol Complete 1 dose PO 3XWK 12/12/18 06/28/19 01/18/19 09:00 ascorbic acid (vitamin C) [Vitamin 1 g PO DAILY 12/12/18 06/28/19 01/19/19 09:00 C] cholecalciferol (vitamin D3) 1,000 unit PO DAILY 12/12/18 06/28/19 01/19/19 12:00 [Vitamin D3] losartan-hydrochlorothiazide 1 tab PO QAM 12/12/18 06/28/19 06/28/19 multivitamin [Multiple Vitamins] 1 tab PO 4XWK 12/12/18 06/28/19 01/19/19 09:00 simvastatin 10 mg PO HS 12/12/18 06/28/19 06/27/19 vitamin B complex 1 cap PO DAILY 12/12/18 06/28/19 01/19/19 12:00 warfarin 2.5 mg PO 2XWK 01/14/19 07/31/19 Unknown warfarin 5 mg PO 5XWK 12/12/18 06/28/19 01/17/19 Past Medical History Medical History Anxiety Arthritis History of DVT (deep vein thrombosis) LLE (2000) S/P TRAUMA/FRACTURE- ON WARFARIN History of uterine cancer s/p hysterectomy, no chemo/xrt Hypertension Obesity Sleep apnea CPAP Exercise / Class Metabolic Activity III < 4 Walking/Shop/Light housework (uses cane prn) Past Family History Family History Other Family history non-contributory Past Surgical History Surgical History History of appendectomy History of back surgery History of colonoscopy History of eye surgery EYE LID SURGERY History of hysterectomy TOTAL History of open reduction and internal fixation (ORIF) procedure LUE/ELBOW History of total left hip arthroplasty Left MARIA L: 01/20/19: SAB x 1 attempt at L3-L4, MAC transitioned to general with LMA#4 due to patient inability to tolerate surgical stimulation despite spinal anesthesia History of total right hip arthroplasty Past Anesthesia History No Hx of Anesthesia Complications and No Family Hx of Anesthesia Complications History of PONV No Hx of PONV and Hx of Motion Sickness Social History Smoking Status: Never smoker Do You Dip or Chew Tobacco: No Hx Alcohol Use: No Hx Substance Use: No substance use type: does not use Review of Systems Patient denies chest pain, shortness of breath, reflux, cough, wheezing, palpitations. Physical Exam Vital Signs VITALS B 148/84P P 71 TEMP 97.7 SP02 95%RA RESP 16 PHYSICAL Full neck and c-spine range of motion. Full TMJ range of motion. 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 Cannot rule out inferior infarct (cited on/before 12/02/15 per cardio). Chest X-Ray Date: 12/26/18 Findings: + NAD Chronic change throughout both hemithoraces.
[2019-07-05 13:22] LABS: Basophils # (auto) 0.02 K/uL (0-0.2); Basophils % (auto) 0.5 %; Eosinophils # (auto) 0.04 K/uL (0-0.5); Hematocrit (blood only) 39.5 % (37-47); Immature Granulocytes # (auto) 0.01 K/uL (0.00-0.02); Immature Granulocytes % (auto) 0.3 %; Lymphocytes # (auto) 1.26 K/uL (1.2-3.4); Lymphocytes % (auto) 33.1 %; Mean Corpuscular Hgb Conc 32.9 g/dL (32-36); Mean Corpuscular Volume 90.8 fL (80-100); Mean Platelet Volume 10.2 fL (7.4-10.4); Monocytes # (auto) 0.45 K/uL (0.11-0.59); Monocytes % (auto) 11.8 %; Neutrophils # (auto) 2.03 K/uL (1.4-6.5); Neutrophils % (auto) 53.3 %; Platelet Count 302 K/uL (130-400); RDW Coefficient of Variation 14.4 % (11.5-14.5); RDW Standard Deviation 48.4 fL (36.4-46.3); Red Blood Count 4.35 M/uL (4.2-5.4); White Blood Count 3.81 K/uL (4.8-10.8)
[2019-07-05 13:32] LABS: INR 2.7 (0.9-1.1); Partial Thromboplastin Ratio 1.5; Prothrombin Time 25.6 Seconds (9.0-12.0)
[2019-07-05 13:35] LABS: BUN Creatinine Ratio 16.8 (10-20); Calcium 9.7 mg/dl (8.5-10.1); Creatinine Clr Calc Pharmacy 51.8 ml/min; Est GFR (African American) 76.1; Est GFR (Non-African American) 65.7
--- NOTE | 2019-07-13 16:49 | History & Physical Report ---
Date of Service July 13, 2019 Assessment & Plan (1) Osteoarthritis of right knee: We will proceed with a right total knee arthroplasty. Postoperatively she will be started back on her Coumadin for DVT prophylaxis and bridged with Lovenox. She will be kept overnight in the hospital for postop medical management. She plans to use [facility] upon discharge or possibly look at going to rehab in [place]. We will see how she does. Present on Admission?: Yes History of Present Illness Chief Complaint: Primary osteoarthritis of the right knee Primary Care Provider: JOHNSON Schmidt Yadira is a pleasant 83-year-old female who is been dealing with a 3-month history of increasing severe right knee pain. X-rays showed some mild arthritis so I sent her for an MRI. The MRI showed rather advanced osteoarthritis mostly involving the lateral compartment of the knee. She is failed conservative treatment including injections. She is using a cane for ambulation. After discussions in the office, she has elected to proceed with a right total knee arthroplasty. Allergies Allergy/AdvReac Type Severity Reaction Status Date / Time adhesive Allergy Unknown "skin Verified 07/05/19 12:27 pulled off" with adhesive sertraline AdvReac Unknown worsening Verified 07/05/19 12:27 of symptoms, "didn't work" Home Medications Home Medications Medication Instructions Recorded Confirmed Type Geritol Complete 1 dose PO 3XWK 12/12/18 06/28/19 History ascorbic acid (vitamin C) [Vitamin 1 g PO DAILY 12/12/18 06/28/19 History C] cholecalciferol (vitamin D3) 1,000 unit PO DAILY 12/12/18 06/28/19 History [Vitamin D3] losartan-hydrochlorothiazide 1 tab PO QAM 12/12/18 06/28/19 History multivitamin [Multiple Vitamins] 1 tab PO 4XWK 12/12/18 06/28/19 History simvastatin 10 mg PO HS 12/12/18 06/28/19 History vitamin B complex 1 cap PO DAILY 12/12/18 06/28/19 History warfarin 2.5 mg PO 2XWK 12/12/18 06/28/19 History warfarin 5 mg PO 5XWK 12/12/18 06/28/19 History Past Med/Surg History Medical History Anxiety Arthritis History of DVT (deep vein thrombosis) LLE (2000) S/P TRAUMA/FRACTURE- ON WARFARIN History of uterine cancer s/p hysterectomy, no chemo/xrt Hypertension Obesity Sleep apnea CPAP Surgical History History of appendectomy History of back surgery History of colonoscopy History of eye surgery EYE LID SURGERY History of hysterectomy TOTAL History of open reduction and internal fixation (ORIF) procedure LUE/ELBOW History of total left hip arthroplasty Left MARIA L: 01/20/19: SAB x 1 attempt at L3-L4, MAC transitioned to general with LMA#4 due to patient inability to tolerate surgical stimulation despite spinal anesthesia History of total right hip arthroplasty Family History Other Family history non-contributory Social History Preferred Language: Indonesian Communication Ability: Effective Rn Clinical Quality Required: No Beliefs That Will Affect Care: None Current Living Situation: Alone Other Information That Helps Us Care for You: No Feels Safe at Home: Yes Smoking Status: Never smoker Do You Dip or Chew Tobacco: No ; Hx Alcohol Use: No Hx Substance Use: No Review of Systems All systems reviewed & are unremarkable except as noted in HPI & below Physical Exam Constitutional: WD/WN, vitals as above Eyes: PERRL, conjunctivae normal, anicteric sclerae ENMT: external ear and nose normal, oropharynx normal Neck: trachea midline, no thyromegaly Respiratory: normal respiratory effort Cardiovascular: RRR, no murmur, no edema Gastrointestinal (Abdomen): normal bowel sounds, soft, nontender, no hepatosplenomegaly Musculoskeletal: On physical examination of the right knee there is a trace effusion. There is near full range of motion and no evidence of instability. There is significant tenderness palpation along the medial and lateral joint lines and over the distal femoral condyles. Psychiatric: A+Ox3, euthymic affect Results & Data Diagnostic Findings Radiographs of the right knee demonstrate advanced osteoarthritis with joint space narrowing osteophyte formation and [id number] articulation.
[~2019-07-14 07:18] MED LIST changes: -BUPIVACAINE 0.5 % 5 MG/1 ML PF 10ML VIAL ONE; +CEFAZOLIN 2000MG 2,000 MG/15 ML SYR IV SCH; +GABAPENTIN 300 MG CAP PO SCH; -GABAPENTIN 300 MG PO SCH; +LR 500ML BOLUS, THEN 15ML/HR IV SCH; -ROPIVACAINE 0.5% HCL/PF 150 MG, BUPIVACAINE 0.5% MPF 30 ML, EPINEPHrine 30MG/30ML (OR U... INFIL SCH; +ROPIVACAINE 0.5% HCL/PF 150 MG, BUPIVACAINE 0.5% MPF 30 ML, EPINEPHrine 30MG/30ML (OR U... INSTIL SCH
[2019-07-14] MEDS ORDERED: BUPIVACAINE 0.25% 30 ML VIAL ONE (07:54)
[2019-07-14] MEDS ORDERED: BUPIVACAINE 0.5 % 5 MG/1 ML PF 10ML VIAL ONE (07:55)
[2019-07-14 08:08] LABS: INR 1.1 (0.9-1.1); Partial Thromboplastin Ratio 1.1; Partial Thromboplastin Time 29.9 Seconds (21.0-31.0); Prothrombin Time 10.9 Seconds (9.0-12.0)
[2019-07-14] MEDS ORDERED: MIDAZOLAM HCL 1 MG/ML 2ML VIAL ONE (08:34)
--- NOTE | 2019-07-14 08:45 | History & Physical Bridge Note ---
Date of Service July 14, 2019 History & Physical Bridge Note I have examined the patient, reviewed the History & Physical and in the interval since the performance of the History & Physical I have noted the following changes of clinical significance: no changes noted
[2019-07-14] MEDS ORDERED: ORTHO JOINT ANESTHETIC ONE (09:15)
[2019-07-14] MEDS ORDERED: fentaNYL citrate 100 MCG/2 ML VIAL ONE ×2 (10:36→11:00)
[2019-07-14] MEDS ORDERED: ATROPINE SULFATE 0.1 MG/ML 10ML SYR IV PRN (10:57)
[2019-07-14] MEDS ORDERED: fentaNYL citrate 100 MCG/2 ML VIAL IV PRN (10:57)
[2019-07-14] MEDS ORDERED: ONDANSETRON INJ 2 MG/ML 2 ML VIAL IV PRN ×2 (10:57→13:36)
[2019-07-14] MEDS ORDERED: ePHEDrine sulfate 50 MG/ML AMP IV PRN (10:57)
[2019-07-14] MEDS ORDERED: PROPOFOL IV EMULSION 10 MG/ML 20 ML VIAL IV ONE (11:00)
[2019-07-14] MEDS ORDERED: ONDANSETRON INJ 2 MG/ML 2 ML VIAL ONE (11:00)
[2019-07-14] MEDS ORDERED: HYDROmorphone INJ 2 MG/ML SYR/VIAL ONE (11:26)
[2019-07-14] MEDS ORDERED: GLYCOPYRROLATE 0.2 MG/ML VIAL ONE (11:53)
--- NOTE | 2019-07-14 12:09 | Operative Report ---
Post Operative Report Pre & Post Diagnosis Operation Date: 07/14/19 10:10 Pre-Op Diagnosis: RIGHT KNEE DEGENERATIVE JOINT DISEASE Post-Op Diagnosis: RIGHT KNEE DEGENERATIVE JOINT DISEASE Procedure Operation Date: 07/14/19 10:10 Actual Procedures p Right Total Knee Arthroplasty(Right) - Mynor Rivero DO Surgeon Mynor Rivero DO [employer] Mynor Suarez PAC Estimated Blood Loss 20 Findings Consistent with Post-Op Diagnosis Specimens Right femoral and tibial bone Complications none Disposition Disposition: Recovery Room Indications Patient is a pleasant 83-year-old female who presented my office with acute onset of severe right knee pain. X-rays did not look too bad so I treated her conservatively for about 3 months. I got an MRI of the knee which showed advanced osteoarthritis mostly in the lateral compartment. After failing conservative treatment, she elected proceed with a right total knee arthroplasty. Description of Procedure Implants used: I used a Biomet Vanguard total knee arthroplasty system with a size 67.5 femur, 67 tibia, 31 patella, and a size 12 PS polyethylene bearing. All components were cemented in place with Palacos G cement. The patient arrived [facility] for the above procedure. There were seen in the preoperative holding area and the operative extremity was identified and signed. There were given a preoperative antibiotic, a spinal anesthetic and an adductor nerve block. There were taken back to the operating room and laid on the table in supine position. There were given basic sedation. The operative knee was then prepped and draped in sterile fashion. A timeout was done, and the patient and the operative extremity was properly identified. A midline incision was made directly over the patella. Dissection was taken down to the extensor mechanism. A subvastus arthrotomy was used. The medial retinaculum was released and the fat pad was mostly left intact. The knee was flexed and the ACL, PCL, and meniscus were removed. A drill was sent down the center of the femoral canal followed by an intramedullary mony. Off that mony a distal femoral cutting block was placed. 9 mm was resected off the distal femur at 5 of valgus. A posterior referencing AP sizing guide was then placed on the distal femur. The femur measured to be a size 67.5. 2 drill holes were placed in 3 of external rotation. A 4-in-1 cutting block was then impacted into place. Anterior posterior and chamfer cuts were then made. The posterior stabilizing box guide was then impacted into place and the box was resected for the posterior stabilizing component. The proximal tibia was then exposed. A drill was sent down the center of the tibial canal followed by an intramedullary mony. Off that mony a proximal tibial resection guide was placed. The proximal tibia was then resected. The tibia measured to be a size 67. The tibial plate was then placed in the appropriate rotation and the tibia was punched. The posterior aspect of the knee was then opened up and any additional meniscus fragments and osteophytes were removed. Trial components were then placed. I used a size 12 PS polyethylene insert. The knee was brought through a full range of motion and felt to be stable. The patella was then everted and 8 mm was resected off the posterior aspect of the patella. The patella measured to be a size 31. 3 peg holes were then drilled. A trial patella was placed. The knee was once again brought through a full range of motion and felt to be stable. Trial components were then removed. The surrounding soft tissues were injected with 100 cc of an orthopedic pain control cocktail. All components were then cemented into place with Palacos G cement. The final polyethylene insert was then snapped into place and the anterior bar was locked. Once cement was dry the tourniquet was deflated. Hemostasis was obtained. A dilute betadyne lavage was then done for 3 minutes. The joint was then irrigated with normal saline solution. The subvastus arthrotomy was then closed with #1 Vicryl suture. The skin was closed with 2-0 Vicryl, 3-0V lock suture, and geno. A soft compressive dressing was placed. The patient was then transferred to a hospital bed and taken to the postanesthesia care unit in stable condition. They tolerated the procedure well. I attest to the content of the Intraoperative Record and any orders documented therein. Any exceptions are noted below.
--- NOTE | 2019-07-14 13:04 | XRay Report ---
XR knee RT 2V routine CLINICAL HISTORY: Surgical Post Op DEGENERATIVE ARTHRITIS COMPARISON: 05/28/2019 DISCUSSION: There are postsurgical changes of a total right knee arthroplasty. The femoral and tibial components appear well seated. Overlying skin geno are evident. There is air within the soft tiss ues consistent with recent surgery. IMPRESSION: Postsurgical changes of a total right knee arthroplasty. Electronically signed by: Adriano Moore M.D. 07/14/2019 1:02 PM
[2019-07-14] MEDS ORDERED: NALOXONE HCL 0.4 MG/1 ML VIAL/CARP IV PRN (13:36)
[2019-07-14] MEDS ORDERED: MAGNESIUM HYDROXIDE SUSP 30 ML UDC PO PRN (13:36)
[2019-07-14] MEDS ORDERED: [UNRECOGNIZED DRUG - OTHER] PO SCH (13:36)
[2019-07-14] MEDS ORDERED: BISACODYL 10 MG SUPP PR PRN (13:36)
[2019-07-14] MEDS ORDERED: OXYCODONE HCL IR 5 MG TAB (IMMEDIATE RELEASE) PO PRN (13:36)
[2019-07-14] MEDS ORDERED: METOCLOPRAMIDE HCL INJ 5 MG/ML 2 ML VIAL IV PRN (13:36)
[2019-07-14] MEDS ORDERED: HYDROmorphone INJ 0.5 MG/0.5 ML SYR IV PRN (13:36)
--- NOTE | 2019-07-14 13:36 | Anesthesiology Progress Note ---
Date of Service July 14, 2019 Anesthesia Post Procedure Vital Signs Vital Signs: Temp Pulse Pulse Resp BP BP Pulse Ox 07/14/19 13:10 87 16 140/71 94 07/14/19 13:00 36.3 C L 86 14 145/69 H 93 07/14/19 12:50 91 H 14 145/85 H 95 07/14/19 12:40 95 H 14 161/79 H 95 07/14/19 12:33 36.1 C L 97 H 16 155/79 H 95 07/14/19 07:59 36.4 C L 69 20 156/74 H 97 Pain Intensity Right Knee: Pain Intensity: 7 Transfer of Care Handoff Completed per policy Notes Mental Status: alert / awake / arousable and participated in evaluation Patient Amnestic to Procedure: Yes Nausea / Vomiting: adequately controlled Pain: adequately controlled Airway Patency, RR, SpO2: stable & adequate BP & HR: stable & adequate Hydration State: stable & adequate Anesthetic Complications: no major complications apparent and Pt Satisfied with anesthetic care
[2019-07-14] MEDS: ACETAMINOPHEN 500 MG TAB PO SCH ×2 (14:05→21:12)
[2019-07-14] MEDS: SODIUM CHLORIDE 0.9% 1000ML 1,000 ML IV SCH (14:06)
[2019-07-14] MEDS: KETOROLAC TROMETHAMINE 15 MG/ML VIAL IV SCH ×2 (14:06→21:11)
[2019-07-14] MEDS: WARFARIN SOD 7.5 MG TAB PO SCH (16:02)
[2019-07-14] MEDS: CEFAZOLIN 2000MG 2,000 MG/15 ML SYR IV SCH (18:22)
[2019-07-14] MEDS: SENNA 8.6 MG TAB PO SCH (21:12)
[2019-07-14] MEDS: DOCUSATE SODIUM 100 MG CAP PO SCH (21:12)
[2019-07-14] MEDS: SIMVASTATIN 10 MG TAB PO SCH (21:12)
[2019-07-15] MEDS: SODIUM CHLORIDE 0.9% 1000ML 1,000 ML IV SCH (00:05)
[2019-07-15] MEDS: KETOROLAC TROMETHAMINE 15 MG/ML VIAL IV SCH ×4 (02:08→19:23)
[2019-07-15] MEDS: CEFAZOLIN 2000MG 2,000 MG/15 ML SYR IV SCH (02:08)
[2019-07-15] MEDS: ACETAMINOPHEN 500 MG TAB PO SCH ×3 (06:02→21:00)
[2019-07-15 06:21] LABS: Hematocrit (blood only) 32.6 % (37-47); Mean Corpuscular Hgb Conc 33.7 g/dL (32-36); Mean Corpuscular Volume 89.8 fL (80-100); Mean Platelet Volume 9.5 fL (7.4-10.4); Platelet Count 251 K/uL (130-400); RDW Coefficient of Variation 13.8 % (11.5-14.5); RDW Standard Deviation 45.4 fL (36.4-46.3); Red Blood Count 3.63 M/uL (4.2-5.4); White Blood Count 12.31 K/uL (4.8-10.8)
[2019-07-15 07:00] LABS: BUN Creatinine Ratio 18.2 (10-20); Calcium 8.4 mg/dl (8.5-10.1); Est GFR (Non-African American) 64.7; Potassium 4.1 mmol/L (3.5-5.1)
[2019-07-15] MEDS: DOCUSATE SODIUM 100 MG CAP PO SCH ×2 (08:37→20:58)
[2019-07-15] MEDS: LOSARTAN POTASSIUM 50 MG TAB PO SCH (08:38)
[2019-07-15] MEDS: hydroCHLOROthiazide 25 MG TAB PO SCH (08:39)
[2019-07-15] MEDS: VITAMIN B COMPLEX TAB PO SCH (08:39)
[2019-07-15] MEDS: ASCORBIC ACID 500 MG TAB PO SCH (08:40)
[2019-07-15] MEDS: MULTIVITAMIN TAB PO SCH (08:40)
--- NOTE | 2019-07-15 08:50 | Orthopedic Progress Note ---
Date of Service July 15, 2019 Assessment & Plan (1) Osteoarthritis of right knee: Overall she is doing fairly well. She has a little trouble waking up from the anesthesia but she seems to be doing better at this time. She will be seen by physical therapy today for ambulation. Her pain is well controlled. She is on Lovenox 80 mg subcu twice a day and Coumadin. The Coumadin was started last night. She will likely be in the hospital over the weekend and will discharge her to a rehab facility on Wednesday. Present on Admission?: Yes Leta May was seen and examined at bedside this morning. Overall she is doing fairly well. She is having some soreness in the knee but is not too bad. She was having a little bit of nausea and lightheadedness yesterday from the general anesthetic. She is feeling a little bit better now. She has already talk to case management and has decided to go to a rehab facility upon discharge. Physical Exam Musculoskeletal: On physical examination of the right knee, the dressing is clean and dry. She has active dorsiflexion plantarflexion of her right ankle. Sensations intact throughout. Results & Data Vital Signs (Past 12 Hours) Vital Signs Temp Pulse Resp BP Pulse Ox Pulse Ox 07/15/19 08:32 94 07/15/19 07:31 36.3 C L 58 L 16 110/67 93 07/15/19 03:07 36.4 C L 45 L 16 98/61 L 93 07/14/19 22:58 36.4 C L 60 16 104/64 91 Laboratory Results H & H 07/05/19 07/15/19 Range/Units 11:50 05:32 Hgb 13.0 11.0 L (12.0-16.0) g/dL Hct 39.5 32.6 L (37-47) % Coagulation 07/05/19 07/14/19 Range/Units 11:50 07:48 INR 2.7 H 1.1 (0.9-1.1) Diagnostic Findings Postoperative x-rays of the right knee show the prosthesis to be in anatomic alignment without any evidence of fracture, dislocation, or loosening. PG Care Time/CCT Total # of Minutes Spent Total Time Spent with Patient: Total time spent is greater than 50% in coordination of care (as documented) at patient's floor/unit and/or counseling patient:
[2019-07-15] MEDS ORDERED: LORazepam 0.5 MG TAB PO PRN (09:00)
[2019-07-15] MEDS ORDERED: MECLIZINE 12.5 MG TAB PO PRN (09:02)
[2019-07-15] MEDS: WARFARIN SOD 7.5 MG TAB PO SCH (16:09)
[2019-07-15] MEDS: SENNA 8.6 MG TAB PO SCH (20:58)
[2019-07-15] MEDS: ENOXAPARIN 80 MG/0.8 ML SYR SQ SCH (21:00)
[2019-07-15] MEDS: SIMVASTATIN 10 MG TAB PO SCH (21:38)
[2019-07-16] MEDS: KETOROLAC TROMETHAMINE 15 MG/ML VIAL IV SCH ×2 (02:03→08:19)
[2019-07-16] MEDS: ACETAMINOPHEN 500 MG TAB PO SCH ×3 (05:47→21:26)
--- NOTE | 2019-07-16 07:15 | Orthopedic Progress Note ---
Date of Service July 16, 2019 Assessment & Plan (1) Osteoarthritis of right knee: Overall she is doing fairly well. She is having some soreness in the knee but her pain is controlled with Tylenol. She is on Lovenox 80 mg twice a day for DVT prophylaxis and she is also on Coumadin. We are following the Coumadin clinic nomogram. She will be seen by physical therapy today for ambulation and range of motion exercises. She plans to be discharged to [facility] tomorrow. She will follow-up with orthopedics in 2 weeks. Present on Admission?: Yes Leta May was seen and examined at bedside this morning. Overall she is doing fairly well. She is having some soreness in the knee but is not too bad. Her pain is controlled with Tylenol. She ambulated fairly well yesterday with physical therapy but, because of her living situation, therapy is recommending rehab placement. She has already been seen by case management and is hoping to go to rehab tomorrow. Physical Exam Musculoskeletal: On physical examination of the right knee, the dressing has been changed. Her right legs out in full extension. She is active dorsi flexion and plantarflexion of her right ankle. Results & Data Vital Signs (Past 12 Hours) Vital Signs Temp Pulse Resp BP Pulse Ox 07/16/19 06:57 36.8 C 76 16 103/64 90 07/15/19 23:23 36.9 C 63 14 103/62 95 PG Care Time/CCT Total # of Minutes Spent Total Time Spent with Patient: Total time spent is greater than 50% in coordination of care (as documented) at patient's floor/unit and/or counseling patient:
[2019-07-16] MEDS: ENOXAPARIN 80 MG/0.8 ML SYR SQ SCH ×2 (08:20→21:26)
[2019-07-16] MEDS: VITAMIN B COMPLEX TAB PO SCH (09:21)
[2019-07-16] MEDS: ASCORBIC ACID 500 MG TAB PO SCH (09:21)
[2019-07-16] MEDS: hydroCHLOROthiazide 25 MG TAB PO SCH (09:22)
[2019-07-16] MEDS: DOCUSATE SODIUM 100 MG CAP PO SCH ×2 (09:22→21:25)
[2019-07-16] MEDS: LOSARTAN POTASSIUM 50 MG TAB PO SCH (09:23)
[2019-07-16] MEDS: MULTIVITAMIN TAB PO SCH (09:23)
[2019-07-16] MEDS: WARFARIN SOD 7.5 MG TAB PO SCH (16:10)
[2019-07-16] MEDS: SIMVASTATIN 10 MG TAB PO SCH (21:25)
[2019-07-16] MEDS: SENNA 8.6 MG TAB PO SCH (21:25)
[2019-07-17] MEDS: ACETAMINOPHEN 500 MG TAB PO SCH ×2 (06:01→13:35)
[2019-07-17] MEDS: ENOXAPARIN 80 MG/0.8 ML SYR SQ SCH (07:51)
[2019-07-17] MEDS: LOSARTAN POTASSIUM 50 MG TAB PO SCH (07:54)
[2019-07-17] MEDS: DOCUSATE SODIUM 100 MG CAP PO SCH (07:54)
[2019-07-17] MEDS: ASCORBIC ACID 500 MG TAB PO SCH (07:55)
[2019-07-17] MEDS: hydroCHLOROthiazide 25 MG TAB PO SCH (07:55)
[2019-07-17] MEDS: VITAMIN B COMPLEX TAB PO SCH (07:55)
[2019-07-17] MEDS: MULTIVITAMIN TAB PO SCH (07:55)
--- NOTE | 2019-07-17 08:14 | Anesthesiology Progress Note ---
Date of Service July 17, 2019 Anesthesia Post Procedure Vital Signs Vital Signs: Temp Pulse Resp BP Pulse Ox 07/17/19 06:37 36.7 C 88 17 106/68 90 07/16/19 23:30 37.2 C 89 18 127/71 95 07/16/19 14:52 36.7 C 86 16 113/67 94 Pain Intensity Right Knee: Pain Intensity: 4 Notes Mental Status: alert / awake / arousable Patient Amnestic to Procedure: Yes Nausea / Vomiting: adequately controlled Pain: adequately controlled Airway Patency, RR, SpO2: stable & adequate BP & HR: stable & adequate Hydration State: stable & adequate Anesthetic Complications: no major complications apparent and Pt Satisfied with anesthetic care
[2019-07-17 12:29] LABS: INR 2.3 (0.9-1.1); Prothrombin Time 22.4 Seconds (9.0-12.0)
[2019-07-17] MEDS ORDERED: WARFARIN SOD 2.5 MG TAB PO SCH (16:00)
[2019-07-18] MEDS ORDERED: WARFARIN SOD 5 MG TAB PO SCH (16:00)
--- NOTE | 2019-07-20 14:34 | Discharge Summary ---
Date of Service July 20, 2019 Admission HPI Per Admitting Provider Yadira is a pleasant 83-year-old female who is been dealing with a 3-month history of increasing severe right knee pain. X-rays showed some mild arthritis so I sent her for an MRI. The MRI showed rather advanced osteoarthritis mostly involving the lateral compartment of the knee. She is failed conservative treatment including injections. She is using a cane for ambulation. After discussions in the office, she has elected to proceed with a right total knee arthroplasty. Principal Diagnosis Right total knee arthroplasty Discharge Data Allergies Allergy/AdvReac Type Severity Reaction Status Date / Time adhesive Allergy Unknown "skin Verified 07/14/19 07:53 pulled off" with adhesive sertraline AdvReac Unknown worsening Verified 07/14/19 07:53 of symptoms, "didn't work" Consultations 07/14/19 13:36 Consult Case Management - Discharge Planning Routine Procedures Performed Operation Date: 07/14/19 10:10 Actual Procedures p Right Total Knee Arthroplasty(Right) - Mynor Rivero DO Ordered Studies 07/14/19 05:00 US - OR guided needle placemen Routine Hospital Course (1) Osteoarthritis of right knee: On July 14, [address] [facility] and underwent a right total knee arthroplasty without complication. She had a spinal anesthetic and a right adductor nerve block. Postoperatively she was started on bridging Lovenox and Coumadin for DVT prophylaxis. She was discharged to general orthopedic floors. Her hospital course was uneventful. On postop day #1 her H&H was stable and her pain was well controlled. She was able to ambulate well with physical therapy. On postop day #2 her dressing was changed. Incision looks good. She is able to participate well once again with physical therapy. Postop day #3 her pain was well controlled. She ambulated well once again with physical therapy and was discharged to [facility]. She will follow- up with orthopedics in 2 weeks. Total Time Total Time Spent Total Time Spent (In Minutes): 20 Discharge Plan Discharge Items Patient Disposition: Transfer Assisted Fac Reason For Visit: RIGHT KNEE DEGENERATIVE JOINT DISEASE Discharge Diagnosis: Right total knee arthroplasty Discharge Goals: Decrease discomfort and Improve function Activity: Per 'Additional Instructions' section Non-emergency contact: Surgeon Call non-emergency contact if: your wound has increased redness and your wound has increased drainage Follow-up/Referrals: Nicolette Jernigan CRNP [Primary Care Provider] - Diet: Regular Addtl Provider Instructions: Activity and Therapy Recommendations: * If you are using [facility] then therapy will be provided at your home until they feel you have accomplished all of your goals. * If you are using [facility] then Physical Therapy will be provided until they feel you are ready to start Outpatient Physical Therapy. * If you are not using home therapy then Outpatient Physical Therapy should start about 3-5 days from your day of surgery. Therapy will last about 6-10 weeks * It is important not to put a pillow under your knee when you are relaxing or sleeping. It is just as important to make sure you are getting your knee perfectly straight as it is to regain your knee bend. * You were shown a series of exercises in the hospital. Do these exercises three times each day including the exercises you were shown in physical therapy. * Get up and walk several times each day. For the first four weeks, try not to stand or walk for more than one hour at a time. If you do stand or walk for more than one hour, you will not hurt anything, but your leg will likely swell. * As you feel comfortable, you may change from the walker or crutches to a cane and then to independent walking. Medications: * Narcotic You will likely be sent home from the hospital with a prescription for the narcotic pain medication that worked best throughout your stay. * Aspirin Most patients will be required to take Aspirin 81mg twice a day for 6 weeks after surgery. This is obtained [id number] and a prescription is not necessary. * Other medications may be prescribed for specific circumstances. If you have any questions, please call the office at . * Resume previous home medications unless otherwise instructed TEDs/Elastic Stockings: The white elastic stockings help limit swelling and prevent blood clots from forming in your legs.~ The more you wear them, the more they work. Wear them for six weeks. Dressing Care: If the incision is not draining then you may leave the geno open to air. If there is a little bit of drainage or if the geno are getting stuck on your clothing then cover the incision with a dry dressing. The geno will be removed at your 2 week follow-up appointment. Showering: You may shower 5 days from the day of surgery. Let the soapy shower water run over the geno and pat them dry. Do not scrub or soak the incision. Things To Watch For: * Drainage from the incision site that occurs more than one week after your surgery. * Increased redness at the incision site. * Fever above 102 degrees Fahrenheit. * Unusual chest pain or shortness of breath. * Call [facility] at with any of the above pro blems Follow-Up Visit: Follow-up with Dr. Rivero 2-3 weeks after your day of surgery. An appointment was probably scheduled when you signed-up for surgery in the office. If you have any questions call Office Instructions: More detailed instructions as well as Frequently Asked Questions were provided in a folder by our office when you signed-up for surgery. Please review these instructions when you get home. If you have any further questions or concerns, please feel free to call the office at [phone] Prescriptions: Continued multivitamin [Multiple Vitamins] Tablet 1 tab PO 4XWK RF: 0 ascorbic acid (vitamin C) [Vitamin C] 1,000 mg Tablet 1 g PO DAILY RF: 0 simvastatin 10 mg Tablet 10 mg PO HS RF: 0 warfarin 5 mg Tablet 5 mg PO 5XWK RF: 0 vitamin B complex Capsule 1 cap PO DAILY RF: 0 cholecalciferol (vitamin D3) [Vitamin D3] 1,000 unit Capsule 1,000 unit PO DAILY RF: 0 losartan-hydrochlorothiazide 100-12.5 mg Tablet 1 tab PO QAM RF: 0 Geritol Complete 16 mg iron- 0.38 mg Tablet 1 dose PO 3XWK RF: 0 warfarin 2.5 mg Tablet 2.5 mg PO 2XWK RF: 0 enoxaparin [Lovenox] 80 mg/0.8 mL Syringe 80 mg SUBCUT DAILY RF: 0 Stand-Alone Forms: [facility]/Other Patient Handouts: Coumadin Discharge Orders: Discharge Order (Routine); Ordered 07/17/19 Ordered By: Mynor Suarez Skilled Items Patient informed of condition?: Yes DNR: Yes Discharge Level of Care: Acute rehab Communicable Disease: No Discharge Prognosis: Stable Admission Data Admit Date/Time: 07/14/19 12:40 Attending Provider: Mynor Rivero Admit Provider: Mynor Rivero Primary Care Provider: Nicolette Jernigan Service: Surgical Services Other Interventions: Discharge Summary Assessment (RN) Last Done: 07/17/19 12:45 DC Date/Time DO NOT enter until pt leaves facility: 07/17/19 15:01
== END 2019-07-17 15:01 | DRG 470 ==
LOC: ASU 07:18 → 3E 12:40

== ENCOUNTER 2021-03-10 07:58 | Observation (INO) ==
--- NOTE | 2021-02-05 13:58 | PAT Medication Instructions ---
Medication Instructions Date of Service February 05, 2021 Home Medications ascorbic acid (vitamin C) 1,000 mg PO QAM cholecalciferol (vitamin D3) [Vitamin D3] 1,000 unit PO QAM multivitamin [Multiple Vitamins] 1 tab PO QAM simvastatin 10 mg PO HS vitamin B complex 1 cap PO QAM hydrochlorothiazide 12.5 mg PO QAM losartan 100 mg PO QAM meclizine 12.5 mg PO BID PRN vitamin E 400 unit PO QAM fluticasone propionate 2 spray INTRANASAL DAILY warfarin [Jantoven] 2.5 mg PO WK warfarin [Jantoven] 5 mg PO 6XWK ASK your prescriber and surgeon warfarin [Jantoven] 2.5 mg PO WK warfarin [Jantoven] 5 mg PO 6XWK STOP taking 2 weeks before surgery If surgery is within 2 weeks, stop taking as soon as possible. vitamin E 400 unit PO QAM DO NOT take the morning of surgery ascorbic acid (vitamin C) 1,000 mg PO QAM cholecalciferol (vitamin D3) [Vitamin D3] 1,000 unit PO QAM multivitamin [Multiple Vitamins] 1 tab PO QAM vitamin B complex 1 cap PO QAM hydrochlorothiazide 12.5 mg PO QAM losartan 100 mg PO QAM Take morning of surgery With a small sip of water, OTHERWISE NOTHING TO EAT OR DRINK AFTER MIDNIGHT: meclizine 12.5 mg PO BID PRN (if needed) fluticasone propionate 2 spray INTRANASAL DAILY Take evening before surgery simvastatin 10 mg PO HS meclizine 12.5 mg PO BID PRN (if needed) Other Notes If you have any questions please call us at [phone] or [phone] or [phone] or [phone]
--- NOTE | 2021-02-10 09:14 | Anesthesiology Consultation ---
Date of Service February 10, 2021 Assessment & Plan (1) Encounter for pre-operative examination: - COVID screening: Per assessment on 02/10: Travel screen negative, no known COVID-19 positive contacts or current COVID-19 related symptoms. Surgeon arrangi ng preop COVID testing. Awaiting results. - S/P Left MARIA L: 01/20/19: SAB x 1 attempt at L3-L4, MAC transitioned to general with LMA#4 due to patient inability to tolerate surgical stimulation despite spinal anesthesia - S/P Right TKA: 07/14/19: LMA#4 + PNB at [facility] (multiple attempts at spinal at L3 and L4 without success > decision made to convert to [place]) - Check coags AM DOS (warfarin instructions per surgeon/prescriber) Chart Review Chart Review: Acceptable Risk for Surgery and Patient seen in Pre Admission Testing Teaching & Discussion Pre-Anesthesia Teaching/Discussion Notes: Instructed NPO after midnight before surgery,except medications with 15 cc of water. Medication instructions provided according to the PAT guidelines. History Surgery Operation Date: 03/10/21 07:30 Proposed Procedures p Total Knee Arthroplasty - Mynor Rivero DO Left Total Knee Arthroplasty Height/Weight Height: 5 ft 1 in Weight: 81.4 kg Allergies Allergy/AdvReac Type Severity Reaction Status Date / Time adhesive AdvReac Intermediate "skin Verified 01/28/21 11:59 pulled off" with adhesive sertraline AdvReac Intermediate Worsening Verified 01/28/21 11:59 of symptoms Medications Home Medications Medication Instructions Recorded Confirmed Last Taken ascorbic acid (vitamin C) [Vitamin 1,000 mg PO QAM 12/12/18 01/28/21 07/02/20 C] simvastatin 10 mg PO HS 12/12/18 01/28/21 07/02/20 vitamin B complex 1 cap PO QAM 12/12/18 01/28/21 07/02/20 hydrochlorothiazide 12.5 mg PO QAM 11/30/19 01/28/21 07/02/20 losartan 100 mg PO QAM 11/30/19 01/28/21 07/03/20 07:00 meclizine 12.5 mg PO BID PRN 06/10/20 01/28/21 07/02/20 vitamin E 400 unit PO QAM 06/10/20 01/28/21 07/02/20 fluticasone propionate 2 spray INTRANASAL DAILY 01/05/21 01/28/21 Unknown warfarin [Jantoven] 2.5 mg PO WK 01/05/21 01/28/21 Unknown warfarin [Jantoven] 5 mg PO 6XWK 01/05/21 01/28/21 Unknown Past Medical History Medical History Anxiety Arthritis History of DVT (deep vein thrombosis) LLE (2000) s/p trauma/fracture- on warfarin History of uterine cancer s/p hysterectomy, no chemo/xrt Hyperlipidemia Hypertension Obesity Sleep apnea CPAP Exercise / Class Metabolic Activity III < 4 Walking/Shop/Light housework (uses cane/walker as needed) Past Family History Family History Mother Family hx of colon cancer Other Family history non-contributory No family history of adverse response to anesthesia Past Surgical History Surgical History H/O blepharoplasty History of appendectomy History of back surgery Lumbar discectomy History of cataract surgery R/L History of colonoscopy History of hysterectomy Total History of open reduction and internal fixation (ORIF) procedure LUE/elbow History of total knee replacement Right TKA: 07/14/19: LMA#4 + PNB at [facility] (multiple attempts at spinal at L3 and L4 without success > decision made to convert to [place]) History of total left hip arthroplasty Left MARIA L: 01/20/19: SAB x 1 attempt at L3-L4, MAC transitioned to general with LMA#4 due to patient inability to tolerate surgical stimulation despite spinal anesthesia History of total right hip arthroplasty Past Anesthesia History No Family Hx of Anesthesia Complications and Other Left MARIA L: 01/20/19: SAB x 1 attempt at L3-L4, MAC transitioned to general with LMA#4 due to patient inability to tolerate surgical stimulation despite spinal anesthesia Right TKA: 07/14/19: LMA#4 + PNB at [facility] (multiple attempts at spinal at L3 and L4 without success > decision made to convert to [place]) History of PONV No Hx of PONV and Hx of Motion Sickness Social History Smoking Status: Never smoker Do You Dip or Chew Tobacco: No Hx Alcohol Use: No substance use type: does not use Physical Exam Vital Signs VITALS BP 124/77 P 72 TEMP 98.2 SP02 98%RA RESP 16 PHYSICAL Full neck and c-spine range of motion. Full TMJ range of motion. TMD 3 finger breaths Mallampati Score 3 Dentition: intact Lungs: clear throughout to auscultation Cardiac: regular rate and rhythm, no murmurs noted Spine: kyphosis Carotid arteries: negative bruit Extremities: no edema Testing Laboratory Results 02/10/21 10:05 02/10/21 10:05 PT 25.5 Seconds (9.0-12.0) H 02/10/21 10:05 INR 2.7 (0.9-1.1) H 02/10/21 10:05 APTT 38.3 Seconds (21.0-31.0) H 02/10/21 10:05 Blood Type O Positive 02/10/21 10:05 Antibody Screen NEGATIVE 02/10/21 10:05 Low WBC > Preop labs to be forwarded to PCP for continuity of care. Electrocardiogram Date: 06/15/20 NSR at 71bpm. Possible anterior infarct, age undetermined. 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 Chest X-Ray Date: 06/15/20 FINDINGS: Patient is mildly rotated. There is no pneumothorax. There is slight blunting of the right costophrenic angle. There is no consolidation. Pulmonary vascularity is normal. Mild cardiomegaly is noted. IMPRESSION: Possible trace right pleural effusion. Cardiomegaly. No evidence for overt pulmonary edema.
[2021-02-10 10:35] LABS: Basophils # (auto) 0.01 K/uL (0-0.2); Basophils % (auto) 0.3 %; Eosinophils # (auto) 0.06 K/uL (0-0.5); Eosinophils % (auto) 1.5 %; Hematocrit (blood only) 41.3 % (37-47); Hemoglobin 13.9 g/dL (12.0-16.0); Lymphocytes # (auto) 0.95 K/uL (1.2-3.4); Mean Corpuscular Hemoglobin 30.8 pg (25-34); Mean Corpuscular Hgb Conc 33.7 g/dL (32-36); Mean Corpuscular Volume 91.6 fL (80-100); Mean Platelet Volume 9.9 fL (7.4-10.4); Monocytes # (auto) 0.41 K/uL (0.11-0.59); Monocytes % (auto) 10.4 %; Neutrophils # (auto) 2.53 K/uL (1.4-6.5); Neutrophils % (auto) 63.8 %; Platelet Count 298 K/uL (130-400); RDW Coefficient of Variation 13.2 % (11.5-14.5); RDW Standard Deviation 44.5 fL (36.4-46.3); Red Blood Count 4.51 M/uL (4.2-5.4); White Blood Count 3.96 K/uL (4.8-10.8)
[2021-02-10 10:44] LABS: INR 2.7 (0.9-1.1); Partial Thromboplastin Ratio 1.5; Partial Thromboplastin Time 38.3 Seconds (21.0-31.0); Prothrombin Time 25.5 Seconds (9.0-12.0)
[2021-02-10 11:39] LABS: Calcium 9.7 mg/dl (8.5-10.1); Creatinine Clr Calc Pharmacy 44.5 ml/min; Est GFR (African American) 67.1; Est GFR (Non-African American) 57.9; Potassium 4.1 mmol/L (3.5-5.1)
--- NOTE | 2021-03-10 06:31 | History & Physical Report ---
Date of Service March 10, 2021 Assessment & Plan (1) Osteoarthritis of left knee: We will proceed with a left total knee arthroplasty. Postoperatively she will be started on Coumadin with a Lovenox bridge for DVT prophylaxis. She will be kept overnight in the hospital for postoperative medical management. She plans to go to rehab or stay with her daughter upon discharge. She wants to talk to case management about that. History of Present Illness Chief Complaint: Osteoarthritis of the left knee. Primary Care Provider: Jackelin Bal DO Yadira is a pleasant 85-year-old female whose been dealing with chronic left knee pain. X-rays and clinical examination have been diagnostic for advanced osteoarthritis of the left knee. After failing extensive conservative treatment, including years of injections, she has elected to proceed with a left total knee arthroplasty. I did do a right knee replacement on her about 2 years ago and she has done well with that.. Allergies Allergy/AdvReac Type Severity Reaction Status Date / Time adhesive AdvReac Intermediate "skin Verified 01/28/21 11:59 pulled off" with adhesive sertraline AdvReac Intermediate Worsening Verified 01/28/21 11:59 of symptoms Home Medications Medication Instructions Recorded Confirmed Type ascorbic acid (vitamin C) [Vitamin 1,000 mg PO QAM 12/12/18 01/28/21 History C] simvastatin 10 mg PO HS 12/12/18 01/28/21 History vitamin B complex 1 cap PO QAM 12/12/18 01/28/21 History hydrochlorothiazide 12.5 mg PO QAM 11/30/19 01/28/21 History losartan 100 mg PO QAM 11/30/19 01/28/21 History meclizine 12.5 mg PO BID PRN 06/10/20 01/28/21 History vitamin E 400 unit PO QAM 06/10/20 01/28/21 History fluticasone propionate 2 spray INTRANASAL DAILY 01/05/21 01/28/21 History warfarin [Jantoven] 2.5 mg PO WK 01/05/21 01/28/21 History warfarin [Jantoven] 5 mg PO 6XWK 01/05/21 01/28/21 History Past Med/Surg History Medical History Anxiety Arthritis History of DVT (deep vein thrombosis) LLE (2000) s/p trauma/fracture- on warfarin History of uterine cancer s/p hysterectomy, no chemo/xrt Hyperlipidemia Hypertension Obesity Sleep apnea CPAP Surgical History H/O blepharoplasty History of appendectomy History of back surgery Lumbar discectomy History of cataract surgery R/L History of colonoscopy History of hysterectomy Total History of open reduction and internal fixation (ORIF) procedure LUE/elbow History of total knee replacement Right TKA: 07/14/19: LMA#4 + PNB at [facility] (multiple attempts at spinal at L3 and L4 without success > decision made to convert to [place]) History of total left hip arthroplasty Left MARIA L: 01/20/19: SAB x 1 attempt at L3-L4, MAC transitioned to general with LMA#4 due to patient inability to tolerate surgical stimulation despite spinal anesthesia History of total right hip arthroplasty Family History Mother Family hx of colon cancer Other Family history non-contributory No family history of adverse response to anesthesia Social History Smoking Status: Never smoker Second Hand Exposure: No; Hx Alcohol Use: No Preferred Language: Maltese Communication Ability: Effective Ore Sampler Required: No Beliefs That Will Affect Care: None marital status: / Current Living Situation: Alone Feels Safe at Home: Yes Assistive Devices: Cane, CPAP, Glasses and Walker Review of Systems All systems reviewed & are unremarkable except as noted in HPI & below. Physical Exam On physical examination of the left knee, she has a slight varus deformity. She is a large soft tissue envelope. She has tenderness palpation over the distal medial femoral condyle and over the medial joint line.. Constitutional WD/WN, vitals as above Eyes PERRL, conjunctivae normal, anicteric sclerae ENMT external ear and nose normal, oropharynx normal Neck trachea midline, no thyromegaly Respiratory normal respiratory effort Cardiovascular RRR, no murmur, no edema Gastrointestinal (Abdomen) normal bowel sounds, soft, nontender, no hepatosplenomegaly Psychiatric A+Ox3, euthymic affect Results & Data Results & Data Laboratory Results . Diagnostic Findings X-rays of the left knee show advanced osteoarthritis with joint space narrowing, osteophyte formation, and [id number] articulation. PG Care Time/CCT Total # of Minutes Spent Total Time Spent with Patient: Total time spent is greater than 50% in coordination of care (as documented) at patient's floor/unit and/or counseling patient: Coding Level of Care Code None Diagnoses Osteoarthritis of left knee M17.12
[~2021-03-10 07:58] MED LIST changes: +BUPIVACAINE 0.5 % 5 MG/1 ML PF 10ML VIAL ONE; -CEFAZOLIN 2000MG 2,000 MG/15 ML SYR IV SCH; +EPINEPHrine INJ 1 MG/ML AMP ONE; +ROPIVACAINE 0.5% 5 MG/ML 30 ML VIAL ONE; -ROPIVACAINE 0.5% HCL/PF 150 MG, BUPIVACAINE 0.5% MPF 30 ML, EPINEPHrine 30MG/30ML (OR U... INSTIL SCH; +ROPIVACAINE 0.5% HCL/PF 150 MG, BUPIVACAINE 0.75% MPF 20 ML, EPINEPHrine 30MG/30ML (OR ... INSTIL SCH; +ceFAZolin 2000MG 2,000 MG/15 ML SYR IV SCH; +dexAMETHasone 4 MG TAB PO SCH
[2021-03-10 09:36] LABS: Partial Thromboplastin Ratio 1.1; Partial Thromboplastin Time 28.1 Seconds (21.0-31.0); Prothrombin Time 10.6 Seconds (9.0-12.0)
[2021-03-10] MEDS ORDERED: MIDAZOLAM HCL 1 MG/ML 2ML VIAL ONE ×2 (10:52)
[2021-03-10] MEDS ORDERED: fentaNYL citrate 100 MCG/2 ML VIAL ONE ×3 (10:52→12:50)
[2021-03-10] MEDS ORDERED: LIDOCAINE HCL 2% 2 ML VIAL/AMP(20MG/ML) INFIL ONE (10:57)
[2021-03-10] MEDS ORDERED: PROPOFOL IV EMULSION 10 MG/ML 20 ML VIAL IV ONE ×2 (10:57→12:50)
[2021-03-10] MEDS ORDERED: ONDANSETRON INJ 2 MG/ML 2 ML VIAL ONE (10:57)
[2021-03-10] MEDS ORDERED: ORTHO JOINT ANESTHETIC ONE (11:06)
[2021-03-10] MEDS ORDERED: DEXAMETHASONE SOD INJ 4 MG/ML VIAL ONE (11:36)
[2021-03-10] MEDS ORDERED: LABETALOL HCL IV 5 MG/ML 20ML IV ONE (11:57)
[2021-03-10] MEDS ORDERED: ACETAMINOPHEN 1000 MG/100 ML IV IV ONE (12:14)
[2021-03-10] MEDS ORDERED: KETOROLAC 30 MG/ML VIAL ONE (12:49)
--- NOTE | 2021-03-10 12:57 | Operative Report ---
PG Post Operative Report Pre & Post Diagnosis Operation Date: 03/10/21 10:55 Pre-Op Diagnosis: Degenerative Joint Disease Left Knee Post-Op Diagnosis: Degenerative Joint Disease Left Knee I identified the patient and participated in the time-out.: Yes Procedure Operation Date: 03/10/21 10:55 Actual Procedures p Left Total Knee Arthroplasty(Left) - Mynor Rivero DO Surgeon Mynor Rivero DO [employer] Mynor Suarez PAC Estimated Blood Loss 100 Findings Consistent with Post-Op Diagnosis Specimens Left femoral and tibial bone Complications none Disposition Disposition: Recovery Room Indications Yadira is a pleasant 85-year-old female who is been dealing with chronic increasing left knee pain. X-rays and clinical examination were diagnostic for advanced osteoarthritis of the left knee. After failing years of conservative treatment, she has elected proceed with a left total knee arthroplasty. Description of Procedure Implants used: I used a [employer] total knee arthroplasty system with a size 7 standard PS femur, knee tibia with a 30 mm stem, 32 patella, and a size 14 CPS polyethylene bearing. All components were cemented in place with Simplex HV cement. Yadira arrived [facility] for the above procedure. She was seen in the preoperative holding area and the operative extremity was identified and signed. She was given a preoperative antibiotic, TXA, and an adductor nerve block. She was taken back to the operating room and laid on the table in supine position. She was given general anesthesia. The operative knee was then prepped and draped in sterile fashion. A timeout was done, and the patient and the operative extremity was properly identified. A midline incision was made directly over the patella. Dissection was taken down to the extensor mechanism. A subvastus arthrotomy was used. The medial retinaculum was released and the fat pad was mostly excised. The knee was flexed and the ACL, PCL, and meniscus were removed. A drill was sent down the center of the femoral canal followed by an intramedullary mony. Off that mony a distal femoral cutting block was placed. 9 mm was resected off the distal femur at 5 of valgus. A posterior referencing AP sizing guide was then placed on the distal femur. The femur measured to be a size 7 standard. 2 drill holes were placed in 3 of external rotation. A 4-in-1 cutting block was then impacted into place. Anterior, posterior, and chamfer cuts were then made. The proximal tibia was then exposed. An external tibial alignment guide was placed. A tibial cut guide was then anchored in place and the proximal tibia was then resected. The posterior aspect of the knee was then opened up and any additional meniscus fragments and osteophytes were removed. The tibia measured to be a size E. The tibial plate was then placed in the appropriate rotation and the tibia was drilled and punched. Trial components were then placed. I used a size 14 CPS polyethylene insert. The knee was brought through a full range of motion and felt to be stable. The peg holes for the femoral component were then drilled. The patella was then everted and 9 mm was resected off the posterior aspect of the patella. The patella measured to be a size 32. 3 peg holes were then drilled. A trial patella was placed. The knee was once again brought through a full range of motion and felt to be stable. Trial components were then removed. The surrounding soft tissues were injected with 100 cc of an orthopedic pain control cocktail. All components were then cemented into place with Simplex HV cement. The final polyethylene insert was then snapped into place. Once cement was dry the tourniquet was deflated. Hemostasis was obtained. A dilute betadyne lavage was then done for 3 minutes. The joint was then irrigated with normal saline solution. The subvastus arthrotomy was then closed with #1 Vicryl suture. The skin was closed with 2-0 Vicryl, 3-0V lock suture, and geno. A Silverlon and a soft compressive dressing were placed. She was then transferred to a hospital bed and taken to the postanesthesia care unit in stable condition. She tolerated the procedure well. Mynor Suarez PA-C, was present for the entire procedure. He was critical for patient positioning, prepping, draping, retraction exposure, wound closure and application of sterile dressing. I attest to the content of the Intraoperative Record and any orders documented therein. Any exceptions are noted below.
[2021-03-10] MEDS ORDERED: FLUMAZENIL 0.1 MG/1 ML 10 ML VIAL IV PRN (13:55)
[2021-03-10] MEDS ORDERED: ONDANSETRON INJ 2 MG/ML 2 ML VIAL IV PRN ×2 (13:55→15:17)
[2021-03-10] MEDS ORDERED: ePHEDrine sulfate 50 MG/ML AMP IV PRN (13:55)
[2021-03-10] MEDS ORDERED: fentaNYL citrate 100 MCG/2 ML VIAL IV PRN (13:55)
[2021-03-10] MEDS ORDERED: ATROPINE SULFATE 0.1 MG/ML 10ML SYR IV PRN (13:55)
[2021-03-10] MEDS ORDERED: LABETALOL HCL IV 5 MG/ML 20ML IV PRN (13:55)
[2021-03-10] MEDS ORDERED: PROMETHAZINE HCL 12.5 MG in SODIUM CHLORIDE 0.9% 50 ML IV PRN (13:55)
[2021-03-10] MEDS ORDERED: NALOXONE HCL 0.4 MG/1 ML VIAL/CARP IV PRN ×2 (13:55→15:17)
--- NOTE | 2021-03-10 14:03 | XRay Report ---
XR knee LT 1 or 2V routine HISTORY: 85 years-old Female Surgical Post Op left knee total joint arthroplasty. COMPARISON: Left knee radiographs 01/05/2021 TECHNIQUE: 2 views of the left knee FINDINGS: Left knee total joint arthroplasty and patella resurfacing. Anterior midline skin geno are noted a long with expected postsurgical soft tissue swelling and deep tissue air. No acute fracture or unexpe cted opaque foreign body. IMPRESSION: Left knee total joint arthroplasty with expected postoperative changes. ACT 112: Negative or not required by law. The above report was generated using voice recognition software. It may contain grammatical, syntax o r spelling errors. Electronically signed by: Patrice Schuster M.D. 03/10/2021 2:02 PM
--- NOTE | 2021-03-10 14:42 | Anesthesiology Progress Note ---
Date of Service March 10, 2021 Anesthesia Post Procedure Vital Signs Vital Signs: Temp Pulse Pulse Resp BP BP Pulse Ox 03/10/21 14:30 80 12 144/70 H 98 03/10/21 14:20 36.3 C L 75 14 133/71 93 03/10/21 14:10 75 15 143/67 H 97 03/10/21 14:00 75 20 142/63 H 95 03/10/21 13:50 77 15 147/69 H 93 03/10/21 13:40 80 18 143/69 H 97 03/10/21 13:30 81 18 153/69 H 97 03/10/21 13:22 36.4 C L 76 10 L 138/64 98 03/10/21 10:01 62 20 148/69 H 98 03/10/21 09:27 36.6 C 69 20 149/66 H 97 Pain Intensity Left Knee: Pain Intensity: 0 Transfer of Care Handoff Completed per policy Notes Mental Status: alert / awake / arousable Patient Amnestic to Procedure: Yes Nausea / Vomiting: adequately controlled Pain: adequately controlled Airway Patency, RR, SpO2: stable & adequate BP & HR: stable & adequate Hydration State: stable & adequate Anesthetic Complications: no major complications apparent
[2021-03-10] MEDS ORDERED: bisacodyL 10 MG SUPP PR PRN (15:17)
[2021-03-10] MEDS ORDERED: METOCLOPRAMIDE HCL INJ 5 MG/ML 2 ML VIAL IV PRN (15:17)
[2021-03-10] MEDS ORDERED: MECLIZINE 12.5 MG TAB PO PRN (15:17)
[2021-03-10] MEDS ORDERED: MAGNESIUM HYDROXIDE SUSP 30 ML UDC PO PRN (15:17)
[2021-03-10] MEDS ORDERED: oxyCODONE HCL IR 5 MG TAB (IMMEDIATE RELEASE) PO PRN (15:17)
[2021-03-10] MEDS ORDERED: HYDROmorphone INJ 0.5 MG/0.5 ML SYR IV PRN (15:17)
[2021-03-10] MEDS ORDERED: SODIUM CHLORIDE 0.9% 1000ML 1,000 ML IV SCH (15:30)
[2021-03-10] MEDS: WARFARIN SOD 5 MG TAB PO SCH (17:49)
[2021-03-10] MEDS: ACETAMINOPHEN 500 MG TAB PO SCH ×2 (17:50→22:03)
[2021-03-10] MEDS: KETOROLAC TROMETHAMINE 15 MG/ML VIAL IV SCH ×2 (17:51→22:04)
[2021-03-10] MEDS: SENNA 8.6 MG TAB PO SCH (20:08)
[2021-03-10] MEDS: DOCUSATE SODIUM 100 MG CAP PO SCH (20:08)
[2021-03-10] MEDS: ENOXAPARIN 80 MG/0.8 ML SYR SQ SCH (20:08)
[2021-03-10] MEDS: SIMVASTATIN 10 MG TAB PO SCH (20:08)
[2021-03-10] MEDS: ceFAZolin 2000MG 2,000 MG/15 ML SYR IV SCH (20:08)
[2021-03-11] MEDS: KETOROLAC TROMETHAMINE 15 MG/ML VIAL IV SCH ×4 (03:56→21:26)
[2021-03-11] MEDS: ceFAZolin 2000MG 2,000 MG/15 ML SYR IV SCH (03:56)
[2021-03-11] MEDS: ACETAMINOPHEN 500 MG TAB PO SCH ×3 (06:03→21:26)
[2021-03-11 06:29] LABS: Hematocrit (blood only) 30.8 % (37-47); Hemoglobin 10.5 g/dL (12.0-16.0); Mean Corpuscular Hemoglobin 30.9 pg (25-34); Mean Corpuscular Hgb Conc 34.1 g/dL (32-36); Mean Corpuscular Volume 90.6 fL (80-100); Mean Platelet Volume 9.9 fL (7.4-10.4); Platelet Count 233 K/uL (130-400); RDW Coefficient of Variation 13.2 % (11.5-14.5); RDW Standard Deviation 43.2 fL (36.4-46.3)
[2021-03-11 06:42] LABS: INR 1.1 (0.9-1.1); Prothrombin Time 10.9 Seconds (9.0-12.0)
[2021-03-11 07:04] LABS: BUN Creatinine Ratio 22.1 (10-20); Calcium 8.8 mg/dl (8.5-10.1); Creatinine Clr Calc Pharmacy 36.1 ml/min; Est GFR (Non-African American) 46.6; Potassium 3.7 mmol/L (3.5-5.1)
--- NOTE | 2021-03-11 07:10 | Orthopedic Progress Note ---
Date of Service March 11, 2021 Assessment & Plan (1) Status post left knee replacement: Overall she is doing very well. She is not having much pain in the left knee. She is on Coumadin and Lovenox for DVT prophylaxis. She will be seen by physical therapy today for ambulation and range of motion exercises. She does live alone. She was hoping to be discharged to a rehab facility. She will be seen by case management today discussed that with her. We will see how she does with therapy as well. We will hopefully discharge her to a rehab facility tomorrow. Leta May was seen and examined at bedside this morning. Overall she is doing fairly well. She is not having too much pain in the left knee. She has been up and ambulating to the bathroom twice. She has no complaints.. Review of Systems All systems reviewed & are unremarkable except as noted in HPI & below. Physical Exam On physical examination of the left knee, the dressing is clean and dry. She has active dorsiflexion plantarflexion of her left ankle. Her leg is out in full extension.. Results & Data Results & Data Laboratory Results . Diagnostic Findings Postoperative x-rays of the left knee show the prosthesis to be in anatomic alignment without any evidence of fracture, dislocation, or loosening. PG Care Time/CCT Total # of Minutes Spent Total Time Spent with Patient: Total time spent is greater than 50% in coordination of care (as documented) at patient's floor/unit and/or counseling patient: Coding Level of Care Code 10290 Post Operative Follow-Up Diagnoses Status post left knee replacement Z96.652
[2021-03-11] MEDS: hydroCHLOROthiazide 25 MG TAB PO SCH (07:42)
[2021-03-11] MEDS: MULTIVITAMIN TAB PO SCH (07:42)
[2021-03-11] MEDS: LOSARTAN POTASSIUM 50 MG TAB PO SCH (07:44)
[2021-03-11] MEDS: DOCUSATE SODIUM 100 MG CAP PO SCH ×2 (07:44→21:23)
[2021-03-11] MEDS: ENOXAPARIN 80 MG/0.8 ML SYR SQ SCH ×2 (07:45→21:23)
[2021-03-11] MEDS: FLUTICASONE PROPIONATE NA SPR 16 GM BTL SCH (07:46)
[2021-03-11] MEDS ORDERED: dexAMETHasone 4 MG TAB PO SCH (08:00)
[2021-03-11] MEDS: WARFARIN SOD 5 MG TAB PO SCH (15:49)
[2021-03-11] MEDS: SENNA 8.6 MG TAB PO SCH (21:25)
[2021-03-11] MEDS: SIMVASTATIN 10 MG TAB PO SCH (21:25)
[2021-03-12] MEDS: ACETAMINOPHEN 500 MG TAB PO SCH ×2 (05:41→12:52)
[2021-03-12] MEDS: KETOROLAC TROMETHAMINE 15 MG/ML VIAL IV SCH ×2 (05:42→10:26)
[2021-03-12 06:24] LABS: INR 1.3 (0.9-1.1); Prothrombin Time 12.7 Seconds (9.0-12.0)
--- NOTE | 2021-03-12 06:29 | Orthopedic Progress Note ---
Date of Service March 12, 2021 Assessment & Plan (1) Status post left knee replacement: Overall she is doing about as well as expected. The knee is sore and painful. She is on Lovenox and it tends to bleed a little bit more. She will be seen by physical therapy today for ambulation and range of motion exercises. She is orthopedically stable for discharge to a nursing care facility later today. Per my clinical assessment the patient meets the requirements for COVID- 19 admission for waived 3 midnight rule per CMS 1135 section 1812. She is also on Coumadin for DVT prophylaxis. She will follow-up with orthopedics in 2 weeks. Leta May was seen and examined at bedside this morning. Overall she is doing fairly well. She was able to participate well yesterday with physical therapy. Her knee is swollen and painful. She has no other complaints.. Review of Systems All systems reviewed & are unremarkable except as noted in HPI & below. Physical Exam On physical examination of the left knee, there is some medial ecchymosis. The dressing has been changed. The geno are exposed. There is very minimal drainage. She is on Lovenox. She is neurovascularly intact.. Results & Data Results & Data Laboratory Results . Diagnostic Findings . PG Care Time/CCT Total # of Minutes Spent Total Time Spent with Patient: Total time spent is greater than 50% in coordination of care (as documented) at patient's floor/unit and/or counseling patient: Coding Level of Care Code 05422 Post Operative Follow-Up Diagnoses Status post left knee replacement Z96.652
--- NOTE | 2021-03-12 06:31 | Discharge Summary ---
Date of Service March 12, 2021 Admission HPI (Per Admitting) Yadira is a pleasant 85-year-old female whose been dealing with chronic left knee pain. X-rays and clinical examination have been diagnostic for advanced osteoarthritis of the left knee. After failing extensive conservative treatment, including years of injections, she has elected to proceed with a left total knee arthroplasty. I did do a right knee replacement on her about 2 years ago and she has done well with that.. Admission Exam (Per Admitting) On physical examination of the left knee, she has a slight varus deformity. She is a large soft tissue envelope. She has tenderness palpation over the distal medial femoral condyle and over the medial joint line.. Principal Diagnosis Same as "Discharge Diagnosis" noted below under Discharge Instructions. Discharge Exam On physical examination of the left knee, there is some medial ecchymosis. The dressing has been changed. The geno are exposed. There is very minimal drainage. She is on Lovenox. She is neurovascularly intact.. Discharge Data Procedures Performed Operation Date: 03/10/21 10:55 Actual Procedures p Left Total Knee Arthroplasty(Left) - Mynor Rivero DO Ordered Studies 03/10/21 05:00 US - OR guided needle placemen Routine Hospital Course (1) Status post left knee replacement: On March 10, 2021 Yadira arrived at [facility] and underwent a left total knee arthroplasty without complication. She had a general anesthetic. Postoperatively she was started on Coumadin and bridging Lovenox for DVT prophylaxis. She was then transferred to the general orthopedic floors. Her hospital course was uneventful. On postop day #1 her H&H was stable and her pain was well controlled. She was able to participate well with physical therapy doing ambulation and range of motion exercises. On postop day #2 her knee was stiff and sore. She had a little bit more pain. She was able to ambulate some with physical therapy. She was then discharged to a residential facility. She will follow-up with orthopedics in 2 weeks. PG Care Time/CCT Total # of Minutes Spent Total Time Spent with Patient: Total time spent is greater than 50% in coord ination of care (as documented) at patient's floor/unit and/or counseling patient: Discharge Plan Discharge Items Patient Disposition: Transfer Half-Way Fac Reason For Visit: DJD Knee Left Discharge Diagnosis: Left knee replacement Activity: As commented below Non-emergency contact: Surgeon Call non-emergency contact if: your wound has increased redness and your wound has increased drainage Follow-up/Referrals: Jackelin Bal DO [Primary Care Provider] - Diet: Regular Addtl Attending Provider Instructions: Activity and Therapy Recommendations: * If you are using [facility] then therapy will be provided at your home until they feel you have accomplished all of your goals. * If you are using [facility] then Physical Therapy will be provided until they feel you are ready to start Outpatient Physical Therapy. * If you are not using home therapy then Outpatient Physical Therapy should start about 3-5 days from your day of surgery. Therapy will last about 6-10 weeks * It is important not to put a pillow under your knee when you are relaxing or sleeping. It is just as important to make sure you are getting your knee perfe ctly straight as it is to regain your knee bend. * You were shown a series of exercises in the hospital. Do these exercises three times each day including the exercises you were shown in physical therapy. * Get up and walk several times each day. For the first four weeks, try not to stand or walk for more than one hour at a time. If you do stand or walk for more than one hour, you will not hurt anything, but your leg will likely swell. * As you feel comfortable, you may change from the walker or crutches to a cane and then to independent walking. Medications: * Narcotic You will likely be sent home from the hospital with a prescription for the narcotic pain medication that worked best throughout your stay. * Continue Coumadin for DVT prophylaxis. * Other medications may be prescribed for specific circumstances. If you have any questions, please call the office at . * Resume previous home medications unless otherwise instructed TEDs/Elastic Stockings: The white elastic stockings help limit swelling and prevent blood clots from forming in your legs.~ The more you wear them, the more they work. Wear them for six weeks. Dressing Care: Do daily dry dressing changes. If the incision is not draining then you may leave the geno open to air. If there is a little bit of drainage or if the geno are getting stuck on your clothing then cover the incision with a dry dressing. The geno will be removed at your 2 week follow-up appointment. Showering: You may shower 5 days after the day of surgery. Let soapy water run over the geno and pat them dry. Do not scrub or soak the incision. Things To Watch For: * Drainage from the incision site that occurs more than one week after your surgery. * Increased redness at the incision site. * Fever above 102 degrees Fahrenheit. * Unusual chest pain or shortness of breath. * Call [facility] at with any of the above problems Follow-Up Visit: Follow-up with Dr. Rivero's PA (Mynor Suarez) 2-3 weeks after your day of surgery. He will remove your geno and answer any questions. If you have any additional questions or concerns, Dr Rivero is usually in the office at the same time and will be available An appointment was probably scheduled when you signed-up for surgery in the office. If you have any questions call Office Instructions: More detailed instructions as well as Frequently Asked Questions were provided in a folder by our office when you signed-up for surgery. Please review these instructions when you get home. If you have any further questions or concerns, please feel free to call the office at [phone] Pending Studies at Discharge: No Stand-Alone Forms: [facility] Skilled Items Patient informed of condition?: Yes DNR: No Discharge Level of Care: Skilled Communicable Disease: No Discharge Prognosis: Improving Lines: None Urinary Catheter: No Medications and DC Order Prescriptions: New oxycodone 5 mg Tablet 5 mg PO Q4H PRN (Reason: pain) Qty: 30 RF: 0 Continued ascorbic acid (vitamin C) [Vitamin C] 1,000 mg Tablet 1,000 mg PO QAM RF: 0 simvastatin 10 mg Tablet 10 mg PO HS RF: 0 vitamin B complex Capsule 1 cap PO QAM RF: 0 losartan 100 mg tablet 100 mg PO QAM RF: 0 hydrochlorothiazide 12.5 mg tablet 12.5 mg PO QAM RF: 0 warfarin [Jantoven] 5 mg tablet 2.5 mg PO WK RF: 0 warfarin [Jantoven] 5 mg tablet 5 mg PO 6XWK RF: 0 fluticasone propionate 50 mcg/actuation spray,suspension 2 spray intranasal DAILY RF: 0 Lovenox pen injector 80 mg SC BID RF: 0 meclizine 12.5 mg Tablet 12.5 mg PO BID PRN (Reason: Dizziness) RF: 0 vitamin E 400 unit Capsule 400 unit PO QAM RF: 0 Discharge Orders: Discharge Order (Routine); Ordered 03/12/21 Ordered By: Mynor Rivero Admission Data Admit Date/Time: 03/10/21 13:24 Attending Provider: Mynor Rivero Admit Provider: Mynor Rivero Primary Care Provider: Jackelin Bal Other Providers: Sara Easton
[2021-03-12] MEDS: DOCUSATE SODIUM 100 MG CAP PO SCH (07:37)
[2021-03-12] MEDS: LOSARTAN POTASSIUM 50 MG TAB PO SCH (07:37)
[2021-03-12] MEDS: hydroCHLOROthiazide 25 MG TAB PO SCH (07:38)
[2021-03-12] MEDS: FLUTICASONE PROPIONATE NA SPR 16 GM BTL SCH (07:39)
[2021-03-12] MEDS: MULTIVITAMIN TAB PO SCH (07:39)
[2021-03-12] MEDS: ENOXAPARIN 80 MG/0.8 ML SYR SQ SCH (07:40)
[2021-03-13] MEDS ORDERED: WARFARIN SOD 2.5 MG TAB PO SCH (16:00)
== END 2021-03-12 13:15 ==
LOC: 3W 07:58 → ASU 07:58

== ENCOUNTER 2023-07-08 09:11 | Inpatient (IN) ==
[2023-07-08] MEDS ORDERED: MoRPHine SULFATE 4 MG/ML 1 ML CARP\\VIAL IV STA (09:33)
[2023-07-08] MEDS ORDERED: ONDANSETRON INJ 2 MG/ML 2 ML VIAL IV STA (09:33)
--- NOTE | 2023-07-08 09:35 | Emergency Department Note ---
Impression & Plan Acute knee pain, Knee swelling, Elevated INR ED Provider Note NAME: JORDAN GAVIN AGE: 87 SEX: F : 1935 ARRIVES VIA: Ambulance INFORMANT: Patient ED PROVIDER(S): Gentry Calabrese DO CHIEF COMPLAINT: knee HPI: Patient is a 87-year-old female who presents to the ER with past medical history of DVT on Coumadin for left knee pain. She notes that yesterday she twisted she felt a pop in her left knee. Since then she has been having swelling. She has trouble with any movement. She denies any headache or change in vision. No chest pain or shortness of breath. No nausea, vomiting, or diarrhea. No dysuria, urgency, or frequency. No other exacerbating or remitting factors. No trauma she has had this knee replacement by Dr. Rivero. PAST MEDICAL HISTORY:See Below PAST SURGICAL HISTORY:See Below FAMILY HISTORY:See Below SOCIAL HISTORY:See Below HOME MEDICATIONS:See Below ALLERGIES:See Below VITALS:See Below PHYSICAL EXAMINATION: GENERAL: Sitting up in bed, alert, well appearing, well nourished, no distress, non-toxic EYE EXAM: normal conjunctiva. OROPHARYNX: no exudate, no erythema, lips, buccal mucosa, and tongue normal and mucous membranes are moist NECK: supple, no nuchal rigidity, no adenopathy, non-tender LUNGS: Clear to auscultation. Normal chest wall mechanics HEART: no murmurs, S1 normal and S2 normal ABDOMEN: abdomen soft, non-tender, normo-active bowel sounds, no masses, no rebound or guarding. UPPER EXTREMITIES: upper extremities are grossly normal. LOWER EXTREMITIES: Flexion extension of the left hip and ankle intact. Significant swelling of the left knee. Knee is warm but no surrounding erythema or induration with a large prepatellar effusion. Significant pain with flexion beyond 10 degrees. DP and PT 2 out of 4. Gross station intact. NEURO EXAM: Normal sensorium, cranial nerves II-XII grossly intact, normal speech, no gross weakness of arms, no gross weakness of legs. MEDICAL DECISION MAKING: Patient is an 87-year-old female who presents the ER for left knee pain following feeling a pop in her knee yesterday while walking. IV was established blood work was obtained. Labs show no significant leukocytosis or anemia. INR one 3.3. BMP along LFTs bilirubin was unremarkable. X-rays of the knee show no acute fracture. On exam clinically she has a large prepatellar effusion. Do favor that this is likely blood with the elevated INR and this occurring after twisting. There is no overt signs of erythema to be consistent with a cellulitis or infected joint. Discussed with the patient at bedside. Attempted to contact Ortho but was unsuccessful over the course of 2 hours. Patient felt as though she could not go home consequently discussed the case with the hospitalist for further evaluation management treatment. While in the ER she was given morphine, Zofran and IV vitamin K to reverse Coumadin. Last blood clot was several years ago. Triage Nursing notes reviewed. Limited review of prior medical records performed Vital Signs: reviewed and remarkable for no significant abnormalities Differential diagnosis: Fracture, subluxation, dislocation, contusion, ligamentous injury, neurovascular, compartment syndrome, rhabdomyolysis, as well as other pathologies. ER treatment provided: See below Diagnostics interpreted by me include EKG and cardiac monitoring as listed below: -Cardiac Monitoring: An order was placed for continuous cardiac monitoring. The monitor shows a rate of 80 with sinus rhythm. -ECG: none -Laboratory studies:Interpreted by me as stated above in MDM and shown below. Imaging studies: Xrays: As interpreted by me: X-rays of the left knee show no acute fracture or dislocation per my read CTs show: none Consultation(s): As described in MDM Procedures:none Critical Care: None Past Med/Surg History Medical History Anxiety Arthritis History of DVT (deep vein thrombosis) LLE (2000) s/p trauma/fracture- on warfarin History of uterine cancer s/p hysterectomy, no chemo/xrt Hyperlipidemia Hypertension Obesity Sleep apnea CPAP Surgical History H/O blepharoplasty History of appendectomy History of back surgery Lumbar discectomy History of cataract surgery R/L History of colonoscopy History of hysterectomy Total History of open reduction and internal fixation (ORIF) procedure LUE/elbow History of total knee replacement Right TKA: 07/14/19: LMA#4 + PNB at [facility], [place] (multiple attempts at spinal at L3 and L4 without success > decision made to convert to [place]) History of total left hip arthroplasty Left MARIA L: 01/20/19: SAB x 1 attempt at L3-L4, MAC transitioned to general with LMA#4 due to patient inability to tolerate surgical stimulation despite spinal anesthesia History of total right hip arthroplasty Family History Mother Family hx of colon cancer Other Family history non-contributory No family history of adverse response to anesthesia Social History Smoking Status: Never smoker Second Hand Exposure: No; Do You Dip or Chew Tobacco: No; Hx Alcohol Use: No Preferred Language: Belarusian Communication Ability: Effective [employer] Sales [employer]ker Required: No Beliefs That Will Affect Care: None marital status: / Current Living Situation: Alone Feels Safe at Home: Yes Assistive Devices: Walker Allergies Allergies Allergy/AdvReac Type Severity Reaction Status Date / Time adhesive AdvReac Intermediate "skin Verified 07/08/23 11:43 pulled off" with adhesive sertraline AdvReac Intermediate Worsening Verified 07/08/23 11:43 of symptoms Home Meds Home Medications Medication Instructions Recorded Confirmed ascorbic acid (vitamin C) 1,000 mg 1,000 mg PO QAM 12/12/18 07/08/23 tablet (Vitamin C) simvastatin 10 mg tablet 10 mg PO HS 12/12/18 07/08/23 vitamin B complex 1 cap PO QAM 12/12/18 07/08/23 hydrochlorothiazide 12.5 mg tablet 12.5 mg PO QAM 11/30/19 07/08/23 meclizine 12.5 mg tablet 12.5 mg PO BID PRN Dizziness 06/10/20 07/08/23 vitamin E 268 mg (400 unit) capsule 400 unit PO QAM 06/10/20 07/08/23 fluticasone propionate 50 2 spray intranasal DAILY 01/05/21 07/08/23 mcg/actuation nasal spray,suspension warfarin 5 mg tablet (Jantoven) 2.5 mg PO 3XWK 01/05/21 07/08/23 warfarin 5 mg tablet (Jantoven) 5 mg PO 4XWK 01/05/21 07/08/23 acetaminophen 500 mg tablet 500 mg PO Q6H PRN Pain 07/08/23 07/08/23 carbidopa 25 mg-levodopa 100 mg 1 tab PO TID 07/08/23 07/08/23 tablet gabapentin 100 mg capsule See Rx Instructions .Route .COMPLEX 07/08/23 07/08/23 gabapentin 300 mg capsule 300 mg PO HS 07/08/23 07/08/23 losartan 50 mg tablet 50 mg PO QAM 07/08/23 07/08/23 Results & Data (ED) Vital Signs Vital Signs - 24 hr 07/08/23 09:13 07/08/23 10:15 07/08/23 10:15 Temperature 36.7 C Temperature Source Oral Pulse Rate 70 70 Pulse Rate [Right Finger] 69 Pulse Rate from SpO2 Sensor Respiratory Rate 18 12 12 Respiratory Depth Normal Blood Pressure 147/69 H Blood Pressure [Right Arm] 140/87 Blood Pressure Mean 95 Blood Pressure Mean [Right Arm] 104 Blood Pressure Position Lying Pulse Oximetry 96 92 Oxygen Delivery Method Room Air Room Air Sepsis Recent Fever Within 48 Hours No Sepsis New/Unexplained Change in Mental Status N/A Sepsis Action Taken by Nursing No Action Required 07/08/23 10:21 07/08/23 10:50 07/08/23 11:55 Temperature Temperature Source Pulse Rate 69 Pulse Rate [Right Finger] 73 79 Pulse Rate from SpO2 Sensor Respiratory Rate 11 L 16 Respiratory Depth Blood Pressure Blood Pressure [Right Arm] 156/76 H 148/76 H Blood Pressure Mean Blood Pressure Mean [Right Arm] 102 100 Blood Pressure Position Pulse Oximetry 92 95 Oxygen Delivery Method Room Air Room Air Sepsis Recent Fever Within 48 Hours Sepsis New/Unexplained Change in Mental Status Sepsis Action Taken by Nursing 07/08/23 13:42 07/08/23 13:57 07/08/23 14:25 Temperature Temperature Source Pulse Rate Pulse Rate [Right Finger] 85 87 84 Pulse Rate from SpO2 Sensor Respiratory Rate 20 21 20 Respiratory Depth Blood Pressure Blood Pressure [Right Arm] 154/81 H 158/87 H 164/85 H Blood Pressure Mean Blood Pressure Mean [Right Arm] 105 110 111 Blood Pressure Position Pulse Oximetry 94 94 94 Oxygen Delivery Method Room Air Room Air Room Air Sepsis Recent Fever Within 48 Hours Sepsis New/Unexplained Change in Mental Status Sepsis Action Taken by Nursing 07/08/23 14:50 07/08/23 15:00 07/08/23 15:15 Temperature Temperature Source Pulse Rate 84 79 80 Pulse Rate [Right Finger] Pulse Rate from SpO2 Sensor 83 79 80 Respiratory Rate 19 15 18 Respiratory Depth Blood Pressure 137/76 134/72 129/73 Blood Pressure [Right Arm] Blood Pressure Mean 96 92 91 Blood Pressure Mean [Right Arm] Blood Pressure Position Pulse Oximetry 92 93 93 Oxygen Delivery Method Sepsis Recent Fever Within 48 Hours Sepsis New/Unexplained Change in Mental Status Sepsis Action Taken by Nursing 07/08/23 15:30 Temperature Temperature Source Pulse Rate 78 Pulse Rate [Right Finger] Pulse Rate from SpO2 Sensor 78 Respiratory Rate 14 Respiratory Depth Blood Pressure 133/72 Blood Pressure [Right Arm] Blood Pressure Mean 92 Blood Pressure Mean [Right Arm] Blood Pressure Position Pulse Oximetry 93 Oxygen Delivery Method Sepsis Recent Fever Within 48 Hours Sepsis New/Unexplained Change in Mental Status Sepsis Action Taken by Nursing Laboratory Data 07/08/23 09:46 07/08/23 09:46 Lab Results 07/08/23 07/08/23 07/08/23 Range/Units 09:46 09:46 09:46 WBC 9.23 (4.8-10.8) K/ul RBC 4.20 (4.20-5.40) M/uL Hgb 12.6 (12.0-16.0) g/dl Hct 37.5 (37.0-47.0) % MCV 89.3 (80.0-100.0) fL MCH 30.0 (25.0-34.0) pg MCHC 33.6 (32.0-36.0) g/dL RDW Std Deviation 45.9 (36.4-46.3) fL RDW Coeff of Nargis 14.3 (11.5-14.5) % Plt Count 297 (130-400) K/uL MPV 9.7 (9.4-12.4) fL Immature Gran % (Auto) 0.5 % Neut % (Auto) 78.6 % Lymph % (Auto) 8.2 % Pickett % (Auto) 11.8 % Eos % (Auto) 0.7 % Baso % (Auto) 0.2 % Neut # (Auto) 7.25 H (1.40-6.50) K/uL Lymph # (Auto) 0.76 L (1.2-3.4) K/uL Pickett # (Auto) 1.09 H (0.11-0.59) K/uL Eos # (Auto) 0.06 (0-0.50) K/uL Baso # (Auto) 0.02 (0-0.2) K/uL Immature Gran # (Auto) 0.05 (0.01-0.20) K/uL PT 33.6 H (9.0-12.0) Seconds INR 3.3 H (0.9-1.1) Sodium 138 (136-145) mmol/L Potassium 3.9 (3.5-5.1) mmol/L Chloride 102 (98-107) mmol/L Carbon Dioxide 27 (21-32) mmol/L Anion Gap 9 (3-11) BUN 30 H (6-23) mg/dl Creatinine 0.92 (0.6-1.2) mg/dl Est Cr Clr Drug Dosing 37.3 ml/min Est GFR ( Amer) 65.3 ml/min Est GFR (Non-Af Amer) 56.4 ml/min BUN/Creatinine Ratio 32.6 H (10-20) Glucose 96 (70-99(Fasting)) mg/dl Calcium 9.7 (8.6-10.3) mg/dl Total Bilirubin 1.2 H (0.2-1.0) mg/dl AST 15 (13-39) U/L ALT 11 (7-52) U/L Alkaline Phosphatase 77 (34-104) U/L Total Protein 7.5 (6.0-8.3) gm/dl Albumin 4.4 (3.4-5.0) gm/dl Globulin 3.1 (2.5-4.0) gm/dl Albumin/Globulin Ratio 1.4 (0.9-2) Administered Medications Discontinued Medications Phytonadione 5 mg/ Dextrose 50.5 mls @ 101 mls/hr IV ONE ONE Stop: 07/08/23 13:18 Last Infusion: 07/08/23 14:27 Dose: 0 mls/hr Documented By: Admin: 07/08/23 13:54 Dose: 101 mls/hr Documented By: ML Acetaminophen (Ofirmev) 1,000 mg in 100 mls @ 400 mls/hr IV NOW STA Stop: 07/08/23 14:17 Last Infusion: 07/08/23 14:46 Dose: 0 mls/hr Documented By: Admin: 07/08/23 14:27 Dose: 400 mls/hr Documented By: ML Morphine Sulfate (Morphine Sulfate 4 Mg/Ml 1 Ml Carp\\Vial) 4 mg IV NOW STA Stop: 07/08/23 09:34 Last Admin: 07/08/23 10:12 Dose: 4 mg Documented By: THANH Ondansetron HCl (Ondansetron Inj 2 Mg/Ml 2 Ml Vial) 4 mg IV NOW STA Stop: 07/08/23 09:34 Last Admin: 07/08/23 10:12 Dose: 4 mg Documented By: THANH Imaging Data Radiologist's Impression: Knee X-Ray 07/08/23 09:32 XR knee LT 3V CLINICAL HISTORY: l knee TECHNIQUE: 3 views of the left knee were obtained. Comparison: Comparison is made to left knee radiographs 04/13/2022 and 06/30/2023 FINDINGS: There is no evidence of an acute fracture. Patient is status post total knee arthroplasty. No perihardware lucency or hardware fracture is seen. Moderate joint effusion is enlarged from prior exam. Soft tissue swelling is seen about the knee. IMPRESSION: Moderate joint effusion and soft tissue swelling, increased from prior exam. ACT 112: Negative or not required by law. Electronically signed by: David Suarez M.D. 07/08/2023 10:14 AM Discharge Plan Visit Data Chief Complaint: Knee Injury/Pain Stated Complaint: L KNEE PAIN ED Provider: Gentry Calabrese Discharge Problem: Acute knee pain, Knee swelling, Elevated INR Discharge Instructions Krames/Other Patient Handouts: ED Knee Pain of Uncertain Cause Activity Restrictions/Additional Instructions: Please follow up with your primary care doctor with in the next 24 hours. Any worsening of your symptoms, please return to the ED immediately. This includes any fevers greater than 100.4, worsening pain, redness of the knee, worsening pain, and able to ambulate,, or any other concerning signs or symptoms from your standpoint. You were found to have a blood pressure greater than 120 systolic over 90 diastolic. Due to the new Medicare guidelines, we are now recommending that you follow up with your primary care doctor in regards to this elevated blood pressure. Please make sure that you follow-up with orthopedics and call their office soon as you leave here today. Would hold your Coumadin for the next 48 hours until you see orthopedics. Forms Stand Alone Forms: My [facility] Prescriptions Prescriptions: No Action ascorbic acid (vitamin C) [Vitamin C] 1,000 mg Tablet 1,000 mg PO QAM simvastatin 10 mg Tablet 10 mg PO HS vitamin B complex Capsule 1 cap PO QAM hydrochlorothiazide 12.5 mg tablet 12.5 mg PO QAM warfarin [Jantoven] 5 mg tablet 2.5 mg PO 3XWK Rx Instructions: Wednesday, and Wednesday warfarin [Jantoven] 5 mg tablet 5 mg PO 4XWK Rx Instructions: Wednesday, Wednesday, Wednesday, Wednesday fluticasone propionate 50 mcg/actuation spray,suspension 2 spray intranasal DAILY meclizine 12.5 mg Tablet 12.5 mg PO BID PRN (Reason: Dizziness) vitamin E 400 unit Capsule 400 unit PO QAM losartan 50 mg tablet 50 mg PO QAM acetaminophen [Tylenol Ex Str Rapid Release] 500 mg Tablet 500 mg PO Q6H PRN (Reason: Pain) gabapentin 300 mg capsule 300 mg PO HS gabapentin 100 mg capsule See Rx Instructions .ROUTE .COMPLEX Rx Instructions: Take 200mg by mouth in the morning, 200mg by mouth at noon and 100mg by mouth at supper time carbidopa-levodopa 25-100 mg tablet 1 tab PO TID Referrals Referrals: Mynor Rivero DO [Physician] - Cristhian Dumont MD [Primary Care Provider] -
[2023-07-08 10:11] LABS: Basophils # (auto) 0.02 K/uL (0-0.2); Basophils % (auto) 0.2 %; Eosinophils # (auto) 0.06 K/uL (0-0.50); Eosinophils % (auto) 0.7 %; Hematocrit (blood only) 37.5 % (37.0-47.0); Hemoglobin 12.6 g/dl (12.0-16.0); Immature Granulocytes # (auto) 0.05 K/uL (0.01-0.20); Immature Granulocytes % (auto) 0.5 %; Lymphocytes # (auto) 0.76 K/uL (1.2-3.4); Lymphocytes % (auto) 8.2 %; Mean Corpuscular Hgb Conc 33.6 g/dL (32.0-36.0); Mean Corpuscular Volume 89.3 fL (80.0-100.0); Mean Platelet Volume 9.7 fL (9.4-12.4); Monocytes # (auto) 1.09 K/uL (0.11-0.59); Monocytes % (auto) 11.8 %; Neutrophils # (auto) 7.25 K/uL (1.40-6.50); Neutrophils % (auto) 78.6 %; Platelet Count 297 K/uL (130-400); RDW Coefficient of Variation 14.3 % (11.5-14.5); RDW Standard Deviation 45.9 fL (36.4-46.3); White Blood Count 9.23 K/ul (4.8-10.8)
--- NOTE | 2023-07-08 10:15 | XRay Report ---
XR knee LT 3V CLINICAL HISTORY: l knee TECHNIQUE: 3 views of the left knee were obtained. Comparison: Comparison is made to left knee radiographs 04/13/2022 and 06/30/2023 FINDINGS: There is no evidence of an acute fracture. Patient is status post total knee arthroplasty. No perihar dware lucency or hardware fracture is seen. Moderate joint effusion is enlarged from prior exam. Soft tissue swelling is seen about the knee. IMPRESSION: Moderate joint effusion and soft tissue swelling, increased from prior exam. ACT 112: Negative or not required by law. Electronically signed by: David Suarez M.D. 07/08/2023 10:14 AM
[2023-07-08 10:28] LABS: Albumin Level 4.4 gm/dl (3.4-5.0); BUN Creatinine Ratio 32.6 (10-20); Bilirubin,Total 1.2 mg/dl (0.2-1.0); Calcium 9.7 mg/dl (8.6-10.3); Creatinine Clr Calc Pharmacy 37.3 ml/min; Est GFR (African American) 65.3 ml/min; Est GFR (Non-African American) 56.4 ml/min; Globulin 3.1 gm/dl (2.5-4.0); Potassium 3.9 mmol/L (3.5-5.1); Total Protein 7.5 gm/dl (6.0-8.3)
[2023-07-08 10:29] LABS: Albumin Globulin Ratio 1.4 (0.9-2)
[2023-07-08 10:43] LABS: INR 3.3 (0.9-1.1); Prothrombin Time 33.6 Seconds (9.0-12.0)
[2023-07-08] MEDS ORDERED: PHYTONADIONE 5 MG in DEXTROSE 5% 50 ML IV ONE (12:49)
--- NOTE | 2023-07-08 13:51 | History & Physical Report ---
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 Left knee pain with history of left total knee arthroplasty February 2021 Left knee effusion -nontraumatic, concern for hemarthrosis in setting of supratherapeutic INR Supratherapeutic INR Admit to med telemetry Pt received 5 mg IV vitamin K in ED Hemoglobin currently stable Repeat PT/INR and H&H at 8 PM Compressed left knee with Efren bandage ICE TID scheduled tylenol, PRN Oxy IR mod pain, IV morphine severe pain will make NWB to LLE till see by ortho elevated LLE Q shift PT/OT pt previous replacements done by Dr. Rivero - sent him a courtesy TT to make aware per pt request will consult contemporary or modern dancer ortho - Dr. Pramod Levy Chronic LLE DVT has been on warfarin since 2000 has chronic venous stasis changes to LLE that are unchanged on warfarin 2.5mg t// and 5mg all other days, previous INR in epic were mildly elevated as well, may need reduced dosing when able to resume HTN bp elevated in ED 2/2 pain chronic, stable- continue losartan, HCTZ HLD chronic, stable - continue statin DVT ppx: SCDS, hold warfarin in setting of possible hemarthrosis DNR/DNI PCP: Cristhian Dumont Pt was seen and examined in collaboration with Dr. Allison, please see addendum A total of 75 was spent coordinating, documenting, and providing care for this patient excluding time spent in the performance of separately billed services. This included personally viewing all current laboratories and imaging studies, medication reconciliation, outpatient chart review, and discussion with specialists. 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 Of significance patient has prior bilateral knee and hip replacements by Dr. Rivero. She was in her normal state of health until this morning whenever she was in her kitchen, turned around and felt a, "pop," in her left knee with immediate pain and swelling. Pain and swelling continued to worsen and she had difficulty bearing weight therefore she presented to ED. she tried Tylenol for pain without relief. She has never had anything like this in the past. She states that she also saw orthopedics 1 week ago. At baseline she ambulates with a walker in the house and a cane when outside of the house. Her sister is at bedside. She is on Coumadin for chronic DVT to the left lower extremity. She denies fever, chills, sweats, lightheadedness, dizziness, chest pain, shortness of breath, URI symptoms, nausea, vomiting, abdominal pain, change in bowel or urinary habits.In ED patient remained hemodynamically stable. Knee x-ray was notable for moderate joint effusion and soft tissue swelling.INR was slightly elevated at 3.3. Her last dose of Coumadin was last evening.Hemoglobin currently stable at 12.6 Allergies Allergy/AdvReac Type Severity Reaction Status Date / Time adhesive AdvReac Intermediate "skin Verified 07/08/23 11:43 pulled off" with adhesive sertraline AdvReac Intermediate Worsening Verified 07/08/23 11:43 of symptoms Home Medications Medication Instructions Recorded Confirmed Type ascorbic acid (vitamin C) 1,000 mg 1,000 mg PO QAM 12/12/18 07/08/23 History tablet (Vitamin C) simvastatin 10 mg tablet 10 mg PO HS 12/12/18 07/08/23 History vitamin B complex 1 cap PO QAM 12/12/18 07/08/23 History hydrochlorothiazide 12.5 mg tablet 12.5 mg PO QAM 11/30/19 07/08/23 History meclizine 12.5 mg tablet 12.5 mg PO BID PRN Dizziness 06/10/20 07/08/23 History vitamin E 268 mg (400 unit) capsule 400 unit PO QAM 06/10/20 07/08/23 History fluticasone propionate 50 2 spray intranasal DAILY 01/05/21 07/08/23 History mcg/actuation nasal spray,suspension warfarin 5 mg tablet (Jantoven) 2.5 mg PO 3XWK 01/05/21 07/08/23 History warfarin 5 mg tablet (Jantoven) 5 mg PO 4XWK 01/05/21 07/08/23 History acetaminophen 500 mg tablet 500 mg PO Q6H PRN Pain 07/08/23 07/08/23 History carbidopa 25 mg-levodopa 100 mg 1 tab PO TID 07/08/23 07/08/23 History tablet gabapentin 100 mg capsule See Rx Instructions .Route .COMPLEX 07/08/23 07/08/23 History gabapentin 300 mg capsule 300 mg PO HS 07/08/23 07/08/23 History losartan 50 mg tablet 50 mg PO QAM 07/08/23 07/08/23 History Past Med/Surg History Medical History Anxiety Arthritis History of DVT (deep vein thrombosis) LLE (2000) s/p trauma/fracture- on warfarin History of uterine cancer s/p hysterectomy, no chemo/xrt Hyperlipidemia Hypertension Obesity Sleep apnea CPAP Surgical History H/O blepharoplasty History of appendectomy History of back surgery Lumbar discectomy History of cataract surgery R/L History of colonoscopy History of hysterectomy Total History of open reduction and internal fixation (ORIF) procedure LUE/elbow History of total knee replacement Right TKA: 07/14/19: LMA#4 + PNB at [facility] (multiple attempts at spinal at L3 and L4 without success > decision made to convert to [place]) History of total left hip arthroplasty Left MARIA L: 01/20/19: SAB x 1 attempt at L3-L4, MAC transitioned to general with LMA#4 due to patient inability to tolerate surgical stimulation despite spinal anesthesia History of total right hip arthroplasty Family History Mother Family hx of colon cancer Other Family history non-contributory No family history of adverse response to anesthesia Social History Smoking Status: Never smoker Second Hand Exposure: No; Do You Dip or Chew Tobacco: No; Hx Alcohol Use: No Hx Substance Use: No Preferred Language: Canadian Communication Ability: Effective Geomagnetist Required: No Beliefs That Will Affect Care: None marital status: / Current Living Situation: Alone Other Information That Helps Us Care for You: No Feels Safe at Home: Yes Safety Concerns: Feels Safe At This Time Assistive Devices: None Review of Systems Review of Systems: All systems reviewed & are unremarkable except as noted in HPI & below Physical Exam Physical Exam: Constitutional: WD/WN, vitals as above, NAD, sitting up in bed, pleasant, conversing easily Head: Normocephalic, Atraumatic Eyes: PERRL, conjunctivae normal, anicteric sclerae ENMT: external ear and nose normal, oropharynx normal Neck: trachea midline, no thyromegaly normal visual inspection Respiratory: normal respiratory effort, lungs clear to auscultation, no wheeze, rales, rhonchi. Normal insp/exp effort, no accessory muscle use Cardiovascular: RRR, no murmur, no edema, chronic venous stasis change to LLE Vessels: no JVD or carotid bruit Chest: normal inspection of chest Abdomen: normal bowel sounds, soft, nontender, no hepatosplenomegaly Musculoskeletal: no cyanosis or clubbing, AROM x 4, Pain with AROM to L Knee, + swelling and warmth to left knee but no redness, wrapped in efren bandage, NVI d istally Skin: no rashes, warm and dry normal turgor Neurologic: PERRL, EOMI, accommodation nl, no face palsy, no dysarthria CN's II-XI intact bilaterally and moves all extremities Psychiatric: A+Ox3, euthymic affect Lymphatic: no cervical or axillary lymphadenopathy : deferred Results & Data Results & Data Vital Signs (Past 12 Hours) Vital Signs Temp Pulse Pulse Resp BP BP Pulse Ox 07/08/23 13:42 85 20 154/81 H 94 07/08/23 11:55 79 16 148/76 H 95 07/08/23 10:50 73 11 L 156/76 H 92 07/08/23 10:21 69 07/08/23 10:15 70 12 92 07/08/23 10:15 69 12 140/87 07/08/23 09:13 36.7 C 70 18 147/69 H 96 O2 Del Method 07/08/23 13:42 Room Air 07/08/23 11:55 Room Air 07/08/23 10:50 Room Air 07/08/23 10:21 07/08/23 10:15 Room Air 07/08/23 10:15 07/08/23 09:13 Room Air Diagnostic Findings Knee X-Ray 07/08/23 09:32 XR knee LT 3V CLINICAL HISTORY: l knee TECHNIQUE: 3 views of the left knee were obtained. Comparison: Comparison is made to left knee radiographs 04/13/2022 and 06/30/2023 FINDINGS: There is no evidence of an acute fracture. Patient is status post total knee arthroplasty. No perihardware lucency or hardware fracture is seen. Moderate joint effusion is enlarged from prior exam. Soft tissue swelling is seen about the knee. IMPRESSION: Moderate joint effusion and soft tissue swelling, increased from prior exam. ACT 112: Negative or not required by law. Electronically signed by: David Suarez M.D. 07/08/2023 10:14 AM Medications Administered Medication List Discontinued Medications Morphine Sulfate (Morphine Sulfate 4 Mg/Ml 1 Ml Carp\\Vial) 4 mg IV NOW STA Stop: 07/08/23 09:34 Last Admin: 07/08/23 10:12 Dose: 4 mg Documented By: THANH Ondansetron HCl (Ondansetron Inj 2 Mg/Ml 2 Ml Vial) 4 mg IV NOW STA Stop: 07/08/23 09:34 Last Admin: 07/08/23 10:12 Dose: 4 mg Documented By: THANH COVID-19 Results Results COVID-19 Adm Lab Results: RBC 4.20 M/uL (4.20-5.40) 07/08/23 WBC 9.23 K/ul (4.8-10.8) 07/08/23 Hgb 12.9 g/dl (12.0-16.0) 07/08/23 Hct 37.3 % (37.0-47.0) 07/08/23 Plt Count 297 K/uL (130-400) 07/08/23 Neutrophils (%) (Auto) 78.6 % 07/08/23 Lymphocytes (%) (Auto) 8.2 % 07/08/23 Monocytes # (Auto) 1.09 K/uL (0.11-0.59) H 07/08/23 Eosinophils # (Auto) 0.06 K/uL (0-0.50) 07/08/23 Immature Granulocyte % (Auto) 0.5 % 07/08/23 Neutrophils # (Auto) 7.25 K/uL (1.40-6.50) H 07/08/23 Lymphocytes # (Auto) 0.76 K/uL (1.2-3.4) L 07/08/23 Monocytes # (Auto) 1.09 K/uL (0.11-0.59) H 07/08/23 Eosinophils # (Auto) 0.06 K/uL (0-0.50) 07/08/23 Basophils # (Auto) 0.02 K/uL (0-0.2) 07/08/23 Immature Granulocyte # (Auto) 0.05 K/uL (0.01-0.20) 3 Na 138 mmol/L (136-145) 07/08/23 K 3.9 mmol/L (3.5-5.1) 07/08/23 Cl 102 mmol/L (98-107) 07/08/23 CO2 27 mmol/L (21-32) 07/08/23 Anion Gap 9 (3-11) 07/08/23 BUN 30 mg/dl (6-23) H 07/08/23 Creatinine 0.92 mg/dl (0.6-1.2) 07/08/23 BUN/Creatinine Ratio 32.6 (10-20) H 07/08/23 Glucose Level 96 mg/dl (70-99(Fasting)) 07/08/23 Ca 9.7 mg/dl (8.6-10.3) 07/08/23 Total Bilirubin 1.2 mg/dl (0.2-1.0) H 07/08/23 AST/SGOT 15 U/L (13-39) 07/08/23 ALT/SGPT 11 U/L (7-52) 07/08/23 Alkaline Phosphatase 77 U/L (34-104) 07/08/23 Total Protein 7.5 gm/dl (6.0-8.3) 07/08/23 Albumin 4.4 gm/dl (3.4-5.0) 07/08/23 Globulin 3.1 gm/dl (2.5-4.0) 07/08/23 Albumin/Globulin Ratio 1.4 (0.9-2) 07/08/23 INR 2.7 (0.9-1.1) H 07/08/23 Code Status & VTE Plan Code Status DNR VTE Prophylaxis Plan VTE Prophylaxis will be ordered: Yes Supervising Physician Co-Signing Physician Notes Pt seen and examined by myself, Jamila Allison MD on the day of service. Care was coordinated with Rita Laird PA-C. Please refer to her note for additional information. 87yoF admitted with painful left knee effusion in the setting of a supratherapeutic INR. States she "twisted" the leg some days before. Ortho consult, monitor INR, pain control. Otherwise as above.
[2023-07-08] MEDS ORDERED: ACETAMINOPHEN 1,000 MG/100 ML VIAL IV STA (14:03)
[2023-07-08] MEDS ORDERED: ALUMINUM/MAGNESIUM SUSP 30 ML UDC PO PRN (16:40)
[2023-07-08] MEDS ORDERED: POLYETHYLENE (MIRALAX) 17 GM PACK PO PRN (16:40)
[2023-07-08] MEDS ORDERED: ONDANSETRON INJ 2 MG/ML 2 ML VIAL IV PRN (16:40)
[2023-07-08] MEDS ORDERED: oxyCODONE HCL IR 5 MG TAB (IMMEDIATE RELEASE) PO PRN (16:40)
[2023-07-08] MEDS ORDERED: MoRPHine SULFATE 4 MG/ML 1 ML CARP\\VIAL IV PRN (16:40)
--- NOTE | 2023-07-08 17:08 | Orthopedic Consultation ---
Date of Service July 08, 2023 Assessment & Plan (1) Hemarthrosis of left knee: She appears to be dealing with a hemarthrosis of her left knee. The hospitalist is working at bringing her INR back down to normal range. She can be weightbearing as tolerated on the left knee. The x-rays are negative. I do not see anything surgical that needs to be done. Unfortunately I will take a few weeks for the hemarthrosis to clear. We will see how she does with physical therapy and help determine if she is safe for going home or to rehab. If you do have any further questions please feel free to [place] text me or contact me personally on my cell phone at [phone] History of Present Illness Reason for Consultation: Hemarthrosis left knee. Requesting Physician: . Attending Physician: Jamila Allison MD Yadira is a pleasant 87-year-old female is well-known to me. I did a left knee replacement on her in February 2021. She has always had some on and off soreness with it. I just saw her last week in the office. She then had an episode earlier today where she twisted and felt a pop in her left knee. She had sudden swelling and bruising. She came to the emergency room. She did not feel like she was able to ambulate to go home. Her INR was 3.3. She was admitted to the medical service. Orthopedics was consulted to evaluate and treat.. Allergies Allergy/AdvReac Type Severity Reaction Status Date / Time adhesive AdvReac Intermediate "skin Verified 07/08/23 11:43 pulled off" with adhesive sertraline AdvReac Intermediate Worsening Verified 07/08/23 11:43 of symptoms Home Medications Medication Instructions Recorded Confirmed Type ascorbic acid (vitamin C) 1,000 mg 1,000 mg PO QAM 12/12/18 07/08/23 History tablet (Vitamin C) simvastatin 10 mg tablet 10 mg PO HS 12/12/18 07/08/23 History vitamin B complex 1 cap PO QAM 12/12/18 07/08/23 History hydrochlorothiazide 12.5 mg tablet 12.5 mg PO QAM 11/30/19 07/08/23 History meclizine 12.5 mg tablet 12.5 mg PO BID PRN Dizziness 06/10/20 07/08/23 History vitamin E 268 mg (400 unit) capsule 400 unit PO QAM 06/10/20 07/08/23 History fluticasone propionate 50 2 spray intranasal DAILY 01/05/21 07/08/23 History mcg/actuation nasal spray,suspension warfarin 5 mg tablet (Jantoven) 2.5 mg PO 3XWK 01/05/21 07/08/23 History warfarin 5 mg tablet (Jantoven) 5 mg PO 4XWK 01/05/21 07/08/23 History acetaminophen 500 mg tablet 500 mg PO Q6H PRN Pain 07/08/23 07/08/23 History carbidopa 25 mg-levodopa 100 mg 1 tab PO TID 07/08/23 07/08/23 History tablet gabapentin 100 mg capsule See Rx Instructions .Route .COMPLEX 07/08/23 07/08/23 History gabapentin 300 mg capsule 300 mg PO HS 07/08/23 07/08/23 History losartan 50 mg tablet 50 mg PO QAM 07/08/23 07/08/23 History Past Med/Surg History Medical History Anxiety Arthritis History of DVT (deep vein thrombosis) LLE (2000) s/p trauma/fracture- on warfarin History of uterine cancer s/p hysterectomy, no chemo/xrt Hyperlipidemia Hypertension Obesity Sleep apnea CPAP Surgical History H/O blepharoplasty History of appendectomy History of back surgery Lumbar discectomy History of cataract surgery R/L History of colonoscopy History of hysterectomy Total History of open reduction and internal fixation (ORIF) procedure LUE/elbow History of total knee replacement Right TKA: 07/14/19: LMA#4 + PNB at [facility] (multiple attempts at spinal at L3 and L4 without success > decision made to convert to [place]) History of total left hip arthroplasty Left MARIA L: 01/20/19: SAB x 1 attempt at L3-L4, MAC transitioned to general with LMA#4 due to patient inability to tolerate surgical stimulation despite spinal anesthesia History of total right hip arthroplasty Family History Mother Family hx of colon cancer Other Family history non-contributory No family history of adverse response to anesthesia Social History Smoking Status: Never smoker Second Hand Exposure: No; Do You Dip or Chew Tobacco: No; Hx Alcohol Use: No Hx Substance Use: No Preferred Language: Nicaraguan Communication Ability: Effective Hand Deicer Element Winder Required: No Beliefs That Will Affect Care: None marital status: / Current Living Situation: Alone Other Information That Helps Us Care for You: No Feels Safe at Home: Yes Safety Concerns: Feels Safe At This Time Assistive Devices: None Review of Systems All systems reviewed & are unremarkable except as noted in HPI & below. Physical Exam On physical examination of left knee, there is a large effusion. There is a lot of ecchymosis in the area. Extends down her leg towards her ankle. It is obvious bruising. No signs of cellulitis no signs of infection. There is no deformity of the knee.. Constitutional WD/WN, vitals as above Eyes PERRL, conjunctivae normal, anicteric sclerae ENMT external ear and nose normal, oropharynx normal Neck trachea midline, no thyromegaly Respiratory normal respiratory effort, lungs clear to auscultation Cardiovascular RRR, no murmur, no edema Gastrointestinal (Abdomen) normal bowel sounds, soft, nontender, no hepatosplenomegaly Skin no rashes, warm and dry Psychiatric A+Ox3, euthymic affect Results & Data Results & Data Laboratory Results . Diagnostic Findings X-rays of the left knee show the prosthesis to be in anatomic alignment without any evidence of fracture, dyscrasia, or loosening. PG Care Time/CCT Total # of Minutes Spent Total Time Spent with Patient: Total time spent is greater than 50% in coordination of care (as documented) at patient's floor/unit and/or counseling patient: Coding Level of Care Code 89417 IN/OBS CONSULT LVL 4,60M Diagnoses Hemarthrosis of left knee M25.062
[2023-07-08] MEDS: ACETAMINOPHEN 325 MG TAB PO SCH ×2 (17:37→21:47)
[2023-07-08] MEDS: SIMVASTATIN 10 MG TAB PO SCH (20:51)
[2023-07-08] MEDS: DOCUSATE SODIUM/SENNA 50/8.6MG TAB PO SCH (20:52)
[2023-07-08] MEDS: GABAPENTIN 300 MG CAP PO SCH (20:52)
[2023-07-08] MEDS: CARBIDOPA/LEVODOPA 25/100MG TAB PO SCH (20:52)
[2023-07-08 21:50] LABS: Hematocrit (blood only) 37.3 % (37.0-47.0); Hemoglobin 12.9 g/dl (12.0-16.0)
[2023-07-08 21:55] LABS: INR 2.7 (0.9-1.1); Prothrombin Time 27.9 Seconds (9.0-12.0)
[2023-07-09] MEDS: ACETAMINOPHEN 325 MG TAB PO SCH ×4 (05:22→23:52)
[2023-07-09 07:29] LABS: Basophils # (auto) 0.02 K/uL (0-0.2); Basophils % (auto) 0.3 %; Eosinophils # (auto) 0.16 K/uL (0-0.50); Eosinophils % (auto) 2.5 %; Hematocrit (blood only) 33.6 % (37.0-47.0); Hemoglobin 11.6 g/dl (12.0-16.0); Immature Granulocytes # (auto) 0.09 K/uL (0.01-0.20); Immature Granulocytes % (auto) 1.4 %; Lymphocytes # (auto) 0.93 K/uL (1.2-3.4); Lymphocytes % (auto) 14.4 %; Mean Corpuscular Hemoglobin 30.2 pg (25.0-34.0); Mean Corpuscular Hgb Conc 34.5 g/dL (32.0-36.0); Mean Corpuscular Volume 87.5 fL (80.0-100.0); Mean Platelet Volume 9.7 fL (9.4-12.4); Monocytes # (auto) 0.95 K/uL (0.11-0.59); Monocytes % (auto) 14.7 %; Neutrophils # (auto) 4.31 K/uL (1.40-6.50); Neutrophils % (auto) 66.7 %; Platelet Count 301 K/uL (130-400); RDW Coefficient of Variation 14.4 % (11.5-14.5); RDW Standard Deviation 45.8 fL (36.4-46.3); Red Blood Count 3.84 M/uL (4.20-5.40); White Blood Count 6.46 K/ul (4.8-10.8)
[2023-07-09 07:36] LABS: Prothrombin Time 21.1 Seconds (9.0-12.0)
[2023-07-09 08:00] LABS: Albumin Globulin Ratio 1.2 (0.9-2); Albumin Level 3.7 gm/dl (3.4-5.0); BUN Creatinine Ratio 30.3 (10-20); Bilirubin,Total 1.4 mg/dl (0.2-1.0); Calcium 9.3 mg/dl (8.6-10.3); Est GFR (African American) 59.8 ml/min; Est GFR (Non-African American) 51.6 ml/min; Magnesium 2.3 mg/dl (1.7-2.4); Total Protein 6.7 gm/dl (6.0-8.3)
[2023-07-09] MEDS: CARBIDOPA/LEVODOPA 25/100MG TAB PO SCH ×3 (09:27→20:28)
[2023-07-09] MEDS: hydroCHLOROthiazide 25 MG TAB PO SCH (09:28)
[2023-07-09] MEDS: LOSARTAN POTASSIUM 50 MG TAB PO SCH (09:29)
[2023-07-09] MEDS: VITAMIN B COMPLEX TAB PO SCH (09:29)
[2023-07-09] MEDS: GABAPENTIN 100 MG CAP PO SCH ×3 (09:49→16:45)
[2023-07-09] MEDS ORDERED: traMADol HCL 50 MG TABLET PO PRN (13:12)
[2023-07-09 14:34] LABS: Hematocrit (blood only) 37.9 % (37.0-47.0); Hemoglobin 12.6 g/dl (12.0-16.0)
--- NOTE | 2023-07-09 14:54 | Hospitalist Progress Note ---
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 Left knee pain with history of left total knee arthroplasty February 2021 Left knee effusion -nontraumatic, concern for hemarthrosis in setting of supratherapeutic INR Supratherapeutic INR Admit to med telemetry Pt received 5 mg IV vitamin K in ED Hemoglobin currently stable Repeat PT/INR and H&H at 8 PM Compressed left knee with Efren bandage ICE TID scheduled tylenol, PRN Oxy IR mod pain, IV morphine severe pain will make NWB to LLE till see by ortho elevated LLE Q shift PT/OT pt previous replacements done by Dr. Rivero - sent him a courtesy TT to make aware per pt request will consult motion picture equipment machinist ortho - Dr. Pramod Levy 07/09 Ortho: No surgery indicated at this point, hemarthrosis may take some time to resolve Pain seems to be somewhat worse but Hemoglobin remains stable at 12 INR 2.0 Continue to monitor, including hemoglobin daily Hold Coumadin Add tramadol as needed for pain Oxycodone discontinued, morphine only for severe pain Chronic LLE DVT has been on warfarin since 2000 after a DVT episode in the setting of arm fracture No previous history of hypercoagulable state has chronic venous stasis changes to LLE that are unchanged on warfarin 2.5mg // and 5mg all other days, previous INR in [facility] were mildly elevated as well, may need reduced dosing when able to resume Hold Coumadin for now HTN chronic, stable- continue losartan, HCTZ HLD chronic, stable - continue statin DVT ppx: SCDS, hold warfarin in setting of possible hemarthrosis DNR/DNI PCP: Cristhian Dumont plan of care discussed with patient in detail and at length all questions answered she is understanding, agreeable, comfortable with the plan of care Admission and Anticipated Discharge Date Admission Date: July 08, 2023 Subjective Follow-up for hemarthrosis, left knee, etc. Seen resting in bed, sitting up, not in distress States left knee pain somewhat worse today Repeat Tylenol Denies fevers or chills No shortness of breath, chest pain, palpitations, etc. Review of Systems Review of Systems: all noted and negative except for above Physical Exam Physical Exam: General- oriented x 3, not in distress, speaks in sentences with no effort or accessory muscle use Eyes- anicteric Neck- no JVD Lungs- clear breath sounds bilaterally, no rales/wheezes Heart- normal rate, regular rhythm; no murmurs Abdomen- normal bowel sounds, nondistended, soft, nontender Extremities- Left knee: Positive bandage in place, positive edema, some tenderness Positive mild lower leg edema Right knee and lower extremity essentially normal no pretibial edema, no calf tenderness Neuro- alert, oriented x 3; no gross focal neurologic deficits Skin- warm & dry Results & Data Results & Data Vital Signs (Past 12 Hours) Vital Signs Temp Pulse Pulse Resp BP Pulse Ox O2 Del Method 07/09/23 13:51 56 L 07/09/23 11:57 36.6 C 70 19 124/75 98 Room Air 07/09/23 07:00 36.7 C 59 L 18 129/71 94 Room Air 07/09/23 04:40 36.7 C 55 L 18 125/77 95 Room Air all noted and reviewed including below
[2023-07-09 14:55] LABS: INR 1.8 (0.9-1.1); Prothrombin Time 18.6 Seconds (9.0-12.0)
[2023-07-09] MEDS: SIMVASTATIN 10 MG TAB PO SCH (20:28)
[2023-07-09] MEDS: GABAPENTIN 300 MG CAP PO SCH (20:28)
[2023-07-09] MEDS: DOCUSATE SODIUM/SENNA 50/8.6MG TAB PO SCH (20:28)
[2023-07-10] MEDS: ACETAMINOPHEN 325 MG TAB PO SCH ×4 (05:41→23:10)
[2023-07-10] MEDS: hydroCHLOROthiazide 25 MG TAB PO SCH (07:55)
[2023-07-10] MEDS: GABAPENTIN 100 MG CAP PO SCH ×3 (07:55→18:06)
[2023-07-10] MEDS: LOSARTAN POTASSIUM 50 MG TAB PO SCH (07:55)
[2023-07-10] MEDS: VITAMIN B COMPLEX TAB PO SCH (07:56)
[2023-07-10] MEDS: CARBIDOPA/LEVODOPA 25/100MG TAB PO SCH ×3 (07:56→20:23)
--- NOTE | 2023-07-10 08:22 | Orthopedic Progress Note ---
Date of Service July 10, 2023 Assessment & Plan (1) Hemarthrosis of left knee: Overall she is doing better. I do not see any signs of infection. This seems to be a hemarthrosis. Her INR is improving. She is scheduled to [facility] tomorrow. She can follow-up with orthopedics as needed. Leta May was seen and examined at bedside this morning. Overall she is doing better. Her knee is not as swollen and not quite as painful. She has a compressive wrap on it. She has no new complaints.. Review of Systems All systems reviewed & are unremarkable except as noted in HPI & below. Physical Exam On physical examination of the left knee, there is still some ecchymosis around the knee that extends down the left leg. There is little bit of swelling. She has an Efren wrap around her knee.. Results & Data Results & Data Laboratory Results . Diagnostic Findings . PG Care Time/CCT Total # of Minutes Spent Total Time Spent with Patient: Total time spent is greater than 50% in coordination of care (as documented) at patient's floor/unit and/or counseling patient: Coding Level of Care Code 71315 Post Operative Follow-Up Diagnoses Hemarthrosis of left knee M25.062
[2023-07-10 13:58] LABS: Basophils # (auto) 0.02 K/uL (0-0.2); Basophils % (auto) 0.2 %; Eosinophils # (auto) 0.18 K/uL (0-0.50); Hematocrit (blood only) 39.2 % (37.0-47.0); Immature Granulocytes # (auto) 0.03 K/uL (0.01-0.20); Immature Granulocytes % (auto) 0.3 %; Lymphocytes # (auto) 1.14 K/uL (1.2-3.4); Lymphocytes % (auto) 12.9 %; Mean Corpuscular Hemoglobin 29.8 pg (25.0-34.0); Mean Corpuscular Hgb Conc 33.2 g/dL (32.0-36.0); Mean Corpuscular Volume 89.9 fL (80.0-100.0); Monocytes # (auto) 0.98 K/uL (0.11-0.59); Monocytes % (auto) 11.1 %; Neutrophils # (auto) 6.48 K/uL (1.40-6.50); Neutrophils % (auto) 73.5 %; Platelet Count 370 K/uL (130-400); RDW Coefficient of Variation 14.2 % (11.5-14.5); Red Blood Count 4.36 M/uL (4.20-5.40); White Blood Count 8.83 K/ul (4.8-10.8)
[2023-07-10 14:21] LABS: INR 1.6 (0.9-1.1); Prothrombin Time 16.7 Seconds (9.0-12.0)
--- NOTE | 2023-07-10 15:15 | Hospitalist Progress Note ---
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 Left knee pain with history of left total knee arthroplasty February 2021 Left knee effusion -nontraumatic, concern for hemarthrosis in setting of supratherapeutic INR Supratherapeutic INR Admit to med telemetry Pt received 5 mg IV vitamin K in ED Hemoglobin currently stable Repeat PT/INR and H&H at 8 PM Compressed left knee with Efren bandage ICE TID scheduled tylenol, PRN Oxy IR mod pain, IV morphine severe pain will make NWB to LLE till see by ortho elevated LLE Q shift PT/OT pt previous replacements done by Dr. Rivero - sent him a courtesy TT to make aware per pt request will consult nuclear operations specialist ortho - Dr. Pramod Levy 07/09 Ortho: No surgery indicated at this point, hemarthrosis may take some time to resolve Pain seems to be somewhat worse but Hemoglobin remains stable at 12 INR 2.0 Continue to monitor, including hemoglobin daily Hold Coumadin Add tramadol as needed for pain Oxycodone discontinued, morphine only for severe pain 07/10 Remained stable Knee pain improving, ambulating better Hemoglobin stable INR 1.6 Weightbearing as tolerated PT and OT Transition to acute rehab Chronic LLE DVT has been on warfarin since 2000 after a DVT episode in the setting of arm fracture No previous history of hypercoagulable state has chronic venous stasis changes to LLE that are unchanged on warfarin 2.5mg t// and 5mg all other days, previous INR in epic were mildly elevated as well, may need reduced dosing when able to resume --INR 1.6 -- hold Coumadin for now, possibly resume on Wednesday if patient remains stable, hemoglobin stable HTN chronic, stable- continue losartan, HCTZ HLD chronic, stable - continue statin DVT ppx: SCDS, hold warfarin in setting of possible hemarthrosis DNR/DNI PCP: Cristhian Dumont plan of care discussed with patient in detail and at length all questions answered she is understanding, agreeable, comfortable with the plan of care Admission and Anticipated Discharge Date Admission Date: July 08, 2023 Subjective Follow-up for left knee hemarthrosis, etc. Seen resting in chair, comfortable, not in distress In good spirits States she feels better today Left knee pain improving Able to ambulate better No fevers or chills, shortness of breath, palpitations, dizziness No other symptom Review of Systems Review of Systems: all noted and negative except for above Physical Exam Physical Exam: General- oriented x 2, not in distress, speaks in sentences with no effort or accessory muscle use Eyes- anicteric Neck- no JVD Lungs- clear breath sounds bilaterally, no crackles or wheezing Heart- normal rate, regular rhythm; no murmurs Abdomen- normal bowel sounds, nondistended, soft, nontender Extremities-left knee: Minimal edema, heavy dressing in place Left lower leg: Minimal edema, no warmth/tenderness/erythema Right lower extremity essentially normal Neuro- alert, oriented x 3; no gross focal neurologic deficits Skin- warm & dry Results & Data Results & Data Vital Signs (Past 12 Hours) Vital Signs Temp Pulse Resp BP Pulse Ox O2 Del Method 07/10/23 11:25 36.6 C 68 16 107/69 93 Room Air 07/10/23 07:22 36.4 C L 53 L 16 111/67 93 Room Air all noted and reviewed including below
[2023-07-10] MEDS ORDERED: MAGNESIUM HYDROXIDE SUSP 30 ML UDC PO PRN (18:38)
[2023-07-10] MEDS: GABAPENTIN 300 MG CAP PO SCH (20:23)
[2023-07-10] MEDS: DOCUSATE SODIUM/SENNA 50/8.6MG TAB PO SCH (20:23)
[2023-07-10] MEDS: SIMVASTATIN 10 MG TAB PO SCH (20:23)
[2023-07-11] MEDS: ACETAMINOPHEN 325 MG TAB PO SCH ×2 (05:48→12:26)
[2023-07-11 08:31] LABS: Basophils # (auto) 0.04 K/uL (0-0.2); Basophils % (auto) 0.7 %; Eosinophils # (auto) 0.29 K/uL (0-0.50); Hematocrit (blood only) 38.6 % (37.0-47.0); Hemoglobin 12.8 g/dl (12.0-16.0); Immature Granulocytes # (auto) 0.02 K/uL (0.01-0.20); Immature Granulocytes % (auto) 0.3 %; Lymphocytes % (auto) 15.6 %; Mean Corpuscular Hemoglobin 29.6 pg (25.0-34.0); Mean Corpuscular Hgb Conc 33.2 g/dL (32.0-36.0); Mean Corpuscular Volume 89.4 fL (80.0-100.0); Mean Platelet Volume 9.5 fL (9.4-12.4); Monocytes % (auto) 10.4 %; Neutrophils # (auto) 3.91 K/uL (1.40-6.50); Platelet Count 353 K/uL (130-400); RDW Coefficient of Variation 14.1 % (11.5-14.5); RDW Standard Deviation 45.8 fL (36.4-46.3); Red Blood Count 4.32 M/uL (4.20-5.40); White Blood Count 5.76 K/ul (4.8-10.8)
[2023-07-11 08:53] LABS: INR 1.4 (0.9-1.1); Prothrombin Time 14.8 Seconds (9.0-12.0)
[2023-07-11] MEDS: GABAPENTIN 100 MG CAP PO SCH ×2 (09:52→12:26)
[2023-07-11] MEDS: VITAMIN B COMPLEX TAB PO SCH (09:52)
[2023-07-11] MEDS: hydroCHLOROthiazide 25 MG TAB PO SCH (09:53)
[2023-07-11] MEDS: LOSARTAN POTASSIUM 50 MG TAB PO SCH (09:53)
[2023-07-11] MEDS: CARBIDOPA/LEVODOPA 25/100MG TAB PO SCH ×2 (09:53→12:26)
--- NOTE | 2023-07-11 10:32 | Hospitalist Progress Note ---
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 LEFT KNEE HEMARTHROSIS IN THE SETTING OF COUMADIN USE presented with Left knee pain with history of left total knee arthroplasty February 2021 Left knee xray: Moderate joint effusion and soft tissue swelling, increased from prior exam. INR 3.3 on admission Pt received 5 mg IV vitamin K in ED Orthopedic Surgeon Dr. Rivero: No surgery indicated at this point, hemarthrosis may take some time to resolve pain improved gradually Hg stable at 12-13 INR 1.4 transition to [facility] Weightbearing as tolerated PT and OT Repeat CBC and INR tomorrow if stable, resume coumadin please ensure INR is not supratherapeutic to prevent hemarthrosis History of LLE DVT has been on warfarin since 2000 after a DVT episode in the setting of arm fracture No previous history of hypercoagulable state as per patient has chronic venous stasis changes to LLE that are unchanged coumadin held Repeat CBC and INR tomorrow if stable, resume coumadin on warfarin 2.5mg t// and 5mg all other days, previous INR in epic were mildly elevated as well, may need reduced dosing when able to resume please ensure INR is not supratherapeutic to prevent hemarthrosis patient reluctant to stop coumadin as she has been on it for many years may need to be referred to an Oncologist for possible discontinuation of anticoagulation as last DVT was provoked in the setting of a fracture, and happened in 2000 HTN chronic, stable- continue losartan, HCTZ HLD chronic, stable - continue statin DNR/DNI PCP: Cristhian Dumont plan of care discussed with patient in detail all questions answered she is understanding, agreeable, comfortable with the plan of care Admission and Anticipated Discharge Date Admission Date: July 08, 2023 Subjective ff up for L knee hemarthrosis, etc seen resting in chair, comfortable in good spirits states she feels better overall mild discomfort on the left knee, doing better no leg pain no other new symptoms states she is ready for transfer today Review of Systems Review of Systems: all noted and negative except for above Physical Exam Physical Exam: General- oriented x 3, not in distress, speaks in sentences with no effort or accessory muscle use Eyes- anicteric Neck- no JVD Lungs- clear breath sounds bilaterally, no rales/wheezes Heart- normal rate, regular rhythm; no murmurs Abdomen- normal bowel sounds, nondistended, soft, nontender Extremities- no pretibial edema, no calf tenderness L knee: very mild edema, mild warmth, no tenderness L lower leg: mild edema, no warmth/erythema/tenderness Neuro- alert, oriented x 3; no gross focal neurologic deficits Skin- warm & dry Results & Data Results & Data Vital Signs (Past 12 Hours) Vital Signs Temp Pulse Resp BP Pulse Ox O2 Del Method 07/11/23 07:41 36.6 C 51 L 16 122/62 92 Room Air 07/11/23 02:57 36.6 C 53 L 20 122/75 95 Room Air all noted and reviewed including below
--- NOTE | 2023-07-11 10:47 | Discharge Summary ---
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 Of significance patient has prior bilateral knee and hip replacements by Dr. Muñoz. She was in her normal state of health until this morning whenever she was in her kitchen, turned around and felt a, "pop," in her left knee with immediate pain and swelling. Pain and swelling continued to worsen and she had difficulty bearing weight therefore she presented to ED. she tried Tylenol for pain without relief. She has never had anything like this in the past. She states that she also saw orthopedics 1 week ago. At baseline she ambulates with a walker in the house and a cane when outside of the house. Her sister is at bedside. She is on Coumadin for chronic DVT to the left lower extremity. She denies fever, chills, sweats, lightheadedness, dizziness, chest pain, shortness of breath, URI symptoms, nausea, vomiting, abdominal pain, change in bowel or urinary habits.In ED patient remained hemodynamically stable. Knee x-ray was notable for moderate joint effusion and soft tissue swelling.INR was slightly elevated at 3.3. Her last dose of Coumadin was last evening.Hemoglobin currently stable at 12.6 Admission Exam Per Admitting Provider Constitutional: WD/WN, vitals as above, NAD, sitting up in bed, pleasant, conversing easily Head: Normocephalic, Atraumatic Eyes: PERRL, conjunctivae normal, anicteric sclerae ENMT: external ear and nose normal, oropharynx normal Neck: trachea midline, no thyromegaly normal visual inspection Respiratory: normal respiratory effort, lungs clear to auscultation, no wheeze, rales, rhonchi. Normal insp/exp effort, no accessory muscle use Cardiovascular: RRR, no murmur, no edema, chronic venous stasis change to LLE Vessels: no JVD or carotid bruit Chest: normal inspection of chest Abdomen: normal bowel sounds, soft, nontender, no hepatosplenomegaly Musculoskeletal: no cyanosis or clubbing, AROM x 4, Pain with AROM to L Knee, + swelling and warmth to left knee but no redness, wrapped in branden bandage, NVI distally Skin: no rashes, warm and dry normal turgor Neurologic: PERRL, EOMI, accommodation nl, no face palsy, no dysarthria CN's II-XI intact bilaterally and moves all extremities Psychiatric: A+Ox3, euthymic affect Lymphatic: no cervical or axillary lymphadenopathy : deferred Principal Dx & Hospital Course #1 = Principal Diagnosis (1) Acute knee pain: (2) Knee swelling: (3) Elevated INR: Plan Per admitting service notes with addendum: This is an 87-year-old female who has significant past medical history of HTN, 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 LEFT KNEE HEMARTHROSIS IN THE SETTING OF COUMADIN USE presented with Left knee pain with history of left total knee arthroplasty February 2021 Left knee xray: Moderate joint effusion and soft tissue swelling, increased from prior exam. INR 3.3 on admission Pt received 5 mg IV vitamin K in ED Orthopedic Surgeon Dr. Muñoz: No surgery indicated at this point, hemarthrosis may take some time to resolve pain improved gradually Hg stable at 12-13 INR 1.4 transition to [facility] Weightbearing as tolerated PT and OT Repeat CBC and INR tomorrow if stable, resume coumadin please ensure INR is not supratherapeutic to prevent hemarthrosis Follow-up with orthopedic surgeon Dr. Muñoz in 1 week History of LLE DVT has been on warfarin since 2000 after a DVT episode in the setting of arm fracture No previous history of hypercoagulable state as per patient has chronic venous stasis changes to LLE that are unchanged coumadin held Repeat CBC and INR tomorrow if stable, resume coumadin on warfarin 2.5mg t// and 5mg all other days, previous INR in epic were mildly elevated as well, may need reduced dosing when able to resume please ensure INR is not supratherapeutic to prevent hemarthrosis patient reluctant to stop coumadin as she has been on it for many years please refer to an Oncologist for possible discontinuation of anticoagulation as last DVT was provoked in the setting of a fracture, happened in 2000; no work up for hypercoagulable state per outpatient records HTN chronic, stable- continue losartan, HCTZ HLD chronic, stable - continue statin DNR/DNI PCP: Cristhian Dumont plan of care discussed with patient in detail all questions answered she is understanding, agreeable, comfortable with the plan of care Discharge Exam General- oriented x 3, not in distress, speaks in sentences with no effort or accessory muscle use Eyes- anicteric Neck- no JVD Lungs- clear breath sounds bilaterally, no rales/wheezes Heart- normal rate, regular rhythm; no murmurs Abdomen- normal bowel sounds, nondistended, soft, nontender Extremities- no pretibial edema, no calf tenderness L knee: very mild edema, mild warmth, no tenderness L lower leg: mild edema, no warmth/erythema/tenderness Neuro- alert, oriented x 3; no gross focal neurologic deficits Skin- warm & dry Updated Medication List Medication Instructions Recorded Confirmed Type ascorbic acid (vitamin C) 1,000 mg 1,000 mg PO QAM 12/12/18 07/08/23 History tablet (Vitamin C) simvastatin 10 mg tablet 10 mg PO HS 12/12/18 07/08/23 History vitamin B complex 1 cap PO QAM 12/12/18 07/08/23 History hydrochlorothiazide 12.5 mg tablet 12.5 mg PO QAM 11/30/19 07/08/23 History meclizine 12.5 mg tablet 12.5 mg PO BID PRN Dizziness 06/10/20 07/08/23 History vitamin E 268 mg (400 unit) capsule 400 unit PO QAM 06/10/20 07/08/23 History fluticasone propionate 50 2 spray intranasal DAILY 01/05/21 07/08/23 History mcg/actuation nasal spray,suspension warfarin 5 mg tablet (Jantoven) 2.5 mg PO 3XWK 01/05/21 07/08/23 History warfarin 5 mg tablet (Jantoven) 5 mg PO 4XWK 01/05/21 07/08/23 History acetaminophen 500 mg tablet 500 mg PO Q6H PRN Pain 07/08/23 07/08/23 History carbidopa 25 mg-levodopa 100 mg 1 tab PO TID 07/08/23 07/08/23 History tablet gabapentin 100 mg capsule See Rx Instructions .Route .COMPLEX 07/08/23 07/08/23 History gabapentin 300 mg capsule 300 mg PO HS 07/08/23 07/08/23 History losartan 50 mg tablet 50 mg PO QAM 07/08/23 07/08/23 History tramadol 50 mg tablet 50 mg PO 1XD PRN moderate to 07/11/23 Rx severe pain #14 tabs Hospital Stay Data Consultations 07/08/23 13:45 Consult Orthopedic Surgery Routine 07/08/23 14:06 ED Decision to Admit Stat Diagnostic Imagining Performed Knee X-Ray 07/08/23 09:32 XR knee LT 3V CLINICAL HISTORY: l knee TECHNIQUE: 3 views of the left knee were obtained. Comparison: Comparison is made to left knee radiographs 04/13/2022 and 06/30/2023 FINDINGS: There is no evidence of an acute fracture. Patient is status post total knee arthroplasty. No perihardware lucency or hardware fracture is seen. Moderate joint effusion is enlarged from prior exam. Soft tissue swelling is seen about the knee. IMPRESSION: Moderate joint effusion and soft tissue swelling, increased from prior exam. ACT 112: Negative or not required by law. Electronically signed by: David Suarez M.D. 07/08/2023 10:14 AM Pending Results Patient Have Any Pending Studies at Discharge: No Discharge Instructions Given to Patient (Per Discharging Provider) PLEASE REFER TO YOUR NEW MEDICATION LIST AND FOLLOW INSTRUCTIONS CAREFULLY. YOUR NEW MEDICATIONS INCLUDE: Tramadol as needed for pain PLEASE CALL YOUR PRIMARY CARE PHYSICIAN OR RETURN TO THE ER IF WITH WORSENING OF SYMPTOMS, INCLUDING Worsening left knee or leg swelling, pain, fevers or chills, etc. FOLLOW UP WITH PRIMARY CARE PHYSICIAN 1 WEEK AFTER DISCHARGE FROM ACUTE REHAB. FOLLOW-UP WITH ORTHOPEDIC SURGEON DR. MUÑOZ IN 1 WEEK. PLEASE REFER TO A WIRE PREPARATION MACHINE TENDER. Total Time Total Time Spent Total Time Spent (In Minutes): >30 minutes
== END 2023-07-11 14:47 | DRG 813 ==
LOC: ED 09:11 → 2W 13:45 → SUATTDRO 13:45 → 2W 16:17

== ENCOUNTER 2023-11-08 10:41 | Inpatient (IN) ==
--- NOTE | 2023-11-08 11:09 | ED Triage Note ---
Date of Service November 08, 2023 Provider in Triage Author: Mariely Loera History of Present Illness This patient was briefly evaluated while in triage. An abbreviated physical exam was performed. This patient is a 88-year-old Female who presents to the ED for evaluation of ce llulitis in her right knee, currently taking cephalexin, states she is unable to bear weight on the right knee. Physical Exam CONSTITUTIONAL: in no acute pain or distress, resting comfortably SKIN: pink, warm, dry CARDIAC: regular rate and rhythm RESPIRATORY: in no respiratory distress, lungs clear to auscultation ABDOMEN: no TTP MSK: right knee strength 3/5 NEURO: no neuro deficits, alert and oriented x 3 Initial orders for labs and / or imaging were placed and patient was placed in the waiting area until a bed is available. Please see further documentation for the full ED course.
--- NOTE | 2023-11-08 11:37 | XRay Report ---
XR knee RT 3V HISTORY: 88 years-old Female right knee pain acute right knee pain without reported trauma COMPARISON: 11/06/2023 TECHNIQUE: 3 views of the right knee FINDINGS: Total joint arthroplasty with patellar resurfacing. Small joint effusion has increased in size from p rior. Demineralized appearance of the bones. No acute fracture, dislocation or evidence of hardware c omplication. Arterial calcifications. IMPRESSION: 1. No acute fracture or dislocation. 2. Unremarkable appearance of the total joint arthroplasty. 3. Small joint effusion. ACT 112: Negative or not required by law. The above report was generated using voice recognition software. It may contain grammatical, syntax o r spelling errors. Electronically signed by: Braxton Schuster M.D. 11/08/2023 11:35 AM
[2023-11-08 12:07] LABS: Basophils # (auto) 0.02 K/uL (0.00-0.20); Basophils % (auto) 0.2 %; Eosinophils # (auto) 0.01 K/uL (0.00-0.50); Eosinophils % (auto) 0.1 %; Hematocrit (blood only) 35.5 % (37.0-47.0); Hemoglobin 11.5 g/dl (12.0-16.0); Immature Granulocytes # (auto) 0.03 K/uL (0.01-0.20); Immature Granulocytes % (auto) 0.4 %; Lymphocytes # (auto) 0.95 K/uL (1.20-3.40); Lymphocytes % (auto) 11.1 %; Mean Corpuscular Hemoglobin 28.5 pg (25.0-34.0); Mean Corpuscular Hgb Conc 32.4 g/dL (32.0-36.0); Mean Corpuscular Volume 88.1 fL (80.0-100.0); Mean Platelet Volume 9.1 fL (9.4-12.4); Monocytes # (auto) 1.21 K/uL (0.11-0.59); Monocytes % (auto) 14.2 %; Neutrophils # (auto) 6.33 K/uL (1.40-6.50); Platelet Count 341 K/uL (130-400); RDW Coefficient of Variation 14.5 % (11.5-14.5); RDW Standard Deviation 46.5 fL (36.4-46.3); Red Blood Count 4.03 M/uL (4.20-5.40); White Blood Count 8.55 K/ul (4.8-10.8)
[2023-11-08 12:19] LABS: Alanine Aminotransferase 4 U/L (7-52); Albumin Globulin Ratio 1.2 (0.9-2); Albumin Level 3.9 gm/dl (3.4-5.0); Alkaline Phosphatase 71 U/L (34-104); Anion Gap 7 (3-11); Aspartate Aminotransferase 21 U/L (13-39); BUN Creatinine Ratio 22.2 (10-20); Bilirubin,Total 0.6 mg/dl (0.2-1.0); Blood Urea Nitrogen 18 mg/dl (6-23); Calcium 9.6 mg/dl (8.6-10.3); Carbon Dioxide 29 mmol/L (21-32); Chloride 101 mmol/L (98-107); Est GFR (African American) 75.7 ml/min; Est GFR (Non-African American) 65.3 ml/min; Globulin 3.3 gm/dl (2.5-4.0); Glucose 105 mg/dl (70-99(Fasting)); Potassium 3.4 mmol/L (3.5-5.1); Sodium 137 mmol/L (136-145); Total Protein 7.2 gm/dl (6.0-8.3)
--- NOTE | 2023-11-08 16:35 | History & Physical Report ---
Date of Service November 08, 2023 Assessment & Plan (1) Acute knee pain: (2) Cellulitis of knee, right: (3) Ambulatory dysfunction: Plan: - Admit to med surg - Checking INR stat as pt presenting with similar sx compared to previously in June 2023 with hemarthrosis -- today INR 2.1, therapeutic. - XR knee reviewed and does not have acute findings, will obtain CT knee with hx of cellulitis to r/o abscess/joint infection with continued pain - PT/OT consults - Pt is on keflex as outpatient for cellulitis and she has hx of cellulitis in this knee. - improvement in edema and erythema per patient report, until possible joint infection/abscess ruled out use IV antibiotics. Can transition to PO abx upon ortho eval. - WBC 8.55 , afebrile - Obtain U/S lower extremity with trace edema to r/p DVT - unlikely with therapeutic INR but with hx of chronic dvt in the other leg. - Ortho consulted - Pain control with PO tylenol per the patient request, once IV inserted can use IV meds for breakthrough pain if needed. (4) DVT (deep venous thrombosis): Plan: - On coumadin lifelong for DVT hx - occurred in Left leg veins over 20 years ago s/p shoulder surgery, chronic, stable - INR 2.1 - Follow inr with am labs (5) Hypertension: Plan: - losartan potassium 50 daily, HCTZ 12.5 mg, BP is well controlled presently - Potassium 3.4 on admission , replace with PO 20 meq, follow with am labs (6) Hyperlipidemia: Plan: - Cont simvastatin DVT ppx: teds, scds Lines: None currently, IV team has been called to obtain site GI/FEN:HH diet CODE: FULL Dispo: From home, likely to remain in the hospital x 1-2 days History of Present Illness Chief Complaint: Left knee pain Primary Care Provider: Cristhian Dumont MD This is an 88-year-old female with PMHx ofHTN, 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 Her original knee replacement was, pleated in February [address] Rivero. She had been admitted earlier this year in June for similar complaints with swelling and pain in her left knee was found to have a left knee hemiarthrosis in the setting of Coumadin use. Pt reports her left knee started hurting on Wednesday. She presented here to the ER on Wednesday where she was diagnosed with cellulitis with erythema and swelling and placed on Keflex PO. She started the Rx yesterday and had one dose today. Her pain is not any better and still is having much difficulty ambulating on it, but edema and erythema are improved. Her daughter is sitting with her at bedside and supports the history. Daughter is concerned as she lives at home alone, and is hoping for PT/OT therapy near her home in [facility]. For pain relieft, the patient has only used tylenol. She denies any fever, chills, trauma to the knee, falls, or other known injury. Allergies Allergy/AdvReac Type Severity Reaction Status Date / Time adhesive AdvReac Intermediate "skin Verified 10/03/23 15:15 pulled off" with adhesive sertraline AdvReac Intermediate Worsening Verified 10/03/23 15:15 of symptoms Home Medications Medication Instructions Recorded Confirmed Type ascorbic acid (vitamin C) 1,000 mg 1,000 mg PO QAM 12/12/18 11/08/23 History tablet (Vitamin C) simvastatin 10 mg tablet 10 mg PO HS 12/12/18 11/08/23 History hydrochlorothiazide 12.5 mg tablet 12.5 mg PO QAM 11/30/19 11/08/23 History meclizine 12.5 mg tablet 12.5 mg PO BID PRN Dizziness 06/10/20 11/08/23 History vitamin E 268 mg (400 unit) capsule 400 unit PO QAM 06/10/20 11/08/23 History fluticasone propionate 50 2 spray intranasal DAILY PRN Other 01/05/21 11/08/23 History mcg/actuation nasal spray,suspension warfarin 5 mg tablet (Jantoven) 5 mg PO DAILY 01/05/21 11/08/23 History acetaminophen 500 mg tablet 500 mg PO Q6H PRN Pain 07/08/23 11/08/23 History carbidopa 25 mg-levodopa 100 mg 1 tab PO TID 07/08/23 11/08/23 History tablet gabapentin 100 mg capsule See Rx Instructions .Route .COMPLEX 07/08/23 11/08/23 History gabapentin 300 mg capsule 300 mg PO HS 07/08/23 11/08/23 History losartan 50 mg tablet 50 mg PO QAM 07/08/23 11/08/23 History cephalexin 500 mg capsule 500 mg PO TID 7 days #21 caps 11/06/23 11/08/23 Rx furosemide 20 mg tablet 20 mg PO DAILY PRN Fluid Retention 11/06/23 11/08/23 History Past Med/Surg History Medical History (Updated 11/08/23 @ 16:47 by Kimmie Addison PA-C) Hyperlipidemia Obesity History of uterine cancer s/p hysterectomy, no chemo/xrt Arthritis Anxiety History of DVT (deep vein thrombosis) LLE (2000) s/p trauma/fracture- on warfarin Sleep apnea CPAP Hypertension Surgical History H/O blepharoplasty History of cataract surgery R/L History of total knee replacement Right TKA: 07/14/19: LMA#4 + PNB at [facility] (multiple attempts at spinal at L3 and L4 without success > decision made to convert to [place]) History of total left hip arthroplasty Left MARIA L: 01/20/19: SAB x 1 attempt at L3-L4, MAC transitioned to general with LMA#4 due to patient inability to tolerate surgical stimulation despite spinal anesthesia History of total right hip arthroplasty History of colonoscopy History of appendectomy History of hysterectomy Total History of back surgery Lumbar discectomy History of open reduction and internal fixation (ORIF) procedure LUE/elbow Family History Mother Family hx of colon cancer Other Family history non-contributory No family history of adverse response to anesthesia Social History Smoking Status: Never smoker Second Hand Exposure: No; Do You Dip or Chew Tobacco: No; Hx Alcohol Use: No Hx Substance Use: No Preferred Language: Polish Communication Ability: Effective Java Security Engineer Required: No Beliefs That Will Affect Care: None marital status: / Current Living Situation: Alone Other Information That Helps Us Care for You: No Feels Safe at Home: Yes Assistive Devices: Cane, CPAP and Walker Review of Systems Review of Systems: Constitutional: No fever, sweats or chills Eyes: No diplopia, no worsening or blurred vision ENT: normal hearing, no trouble swallowing Respiratory: No cough, sputum, dyspnea at rest or on exertion Cardiovascular: No chest pain, tightness or palpitations Abdomen: No pain, nausea, vomiting, diarrhea or constipation Musculoskeletal: Right knee joint pain as per HPI, chronic edema in the left lower leg d/t hx of DVT, no calf pain, bilateral ankle swelling Neurologic: No weakness, numbness/tingling, + balance problems and uses a walker/cane at baseline Psychiatric: No anxiety or depression Skin: No rash or itch Physical Exam Physical Exam: General: awake, alert, no apparent distress, white female Head: Normocephalic, atraumatic ENT: PERRL, EOMI, no pharyngeal exudate, mucous membranes moist Chest: Clear to auscultation, on room air, no adventitious breath sounds Cardiac: Regular rate and rhythm, no murmur, no JVD, normal peripheral pulses, good capillary refill Abdominal: NABS x 4 quadrants, soft, nondistended, nontender to palpation, no rebound or guarding Extremities: S/p bilateral knee replacements, well healed. Right knee with residual outline from being seen here in the ER, erythema is contained within the outlined area, minimal tenderness with palpation along the joint line, pt is able to move knee but is painful, minimal edema BLE at ankles, nonpitting, otherwise normal inspection, no peripheral erythema, calfs nontender to palpation Psych: Normal mood and affect Neuro: AAO x 3, strength intact bilaterally and rated 5/5, no motor deficits, speech is clear, no peripheral sensory deficits Results & Data Results & Data Vital Signs (Past 12 Hours) Vital Signs Temp Pulse Resp BP Pulse Ox O2 Del Method 11/08/23 11:07 37.0 C 75 20 125/71 97 Room Air Laboratory Results 11/08/23 11/08/23 11:45 11:44 WBC 8.55 RBC 4.03 L Hgb 11.5 L Hct 35.5 L MCV 88.1 MCH 28.5 MCHC 32.4 RDW Std Deviation 46.5 H RDW Coeff of Nargis 14.5 Plt Count 341 MPV 9.1 L Immature Gran % (Auto) 0.4 Neut % (Auto) 74.0 Lymph % (Auto) 11.1 [place] % (Auto) 14.2 Eos % (Auto) 0.1 Baso % (Auto) 0.2 Neut # (Auto) 6.33 Lymph # (Auto) 0.95 L [place] # (Auto) 1.21 H Eos # (Auto) 0.01 Baso # (Auto) 0.02 Immature Gran # (Auto) 0.03 PT 22.2 H INR 2.1 H Sodium 137 Potassium 3.4 L Chloride 101 Carbon Dioxide 29 Anion Gap 7 BUN 18 Creatinine 0.81 Est Cr Clr Drug Dosing Not Reportable Est GFR ( Amer) 75.7 Est GFR (Non-Af Amer) 65.3 BUN/Creatinine Ratio 22.2 H Glucose 105 H Calcium 9.6 Total Bilirubin 0.6 AST 21 ALT 4 L Alkaline Phosphatase 71 Total Protein 7.2 Albumin 3.9 Globulin 3.3 Albumin/Globulin Ratio 1.2 Diagnostic Findings Knee X-Ray 11/08/23 11:09 XR knee RT 3V HISTORY: 88 years-old Female right knee pain acute right knee pain without reported trauma COMPARISON: 11/06/2023 TECHNIQUE: 3 views of the right knee FINDINGS: Total joint arthroplasty with patellar resurfacing. Small joint effusion has increased in size from prior. Demineralized appearance of the bones. No acute fracture, dislocation or evidence of hardware complication. Arterial calcifications. IMPRESSION: 1. No acute fracture or dislocation. 2. Unremarkable appearance of the total joint arthroplasty. 3. Small joint effusion. ACT 112: Negative or not required by law. The above report was generated using voice recognition software. It may contain grammatical, syntax or spelling errors. Electronically signed by: Braxton Schuster M.D. 11/08/2023 11:35 AM Code Status & VTE Plan Code Status DNR/DNI - discussed with pt and daughter at bedside Supervising Physician Co-Signing Physician Notes Pt seen and examined by myself, Jamila Allison MD on the day of service. Care was coordinated with Kimmie Addison PA-C. 88yoF admitted with decreased function in her RLE after being treated outpatient with Keflex for cellulitis after presenting to the ED on 11/06. Pt states that the redness in the RLE has been improving, but she's no longer able to walk. On exam, noted previous marker outline on RLE with improved erythema on knee, noted surgical scar. R Knee XRAY notes effusion, CT R knee pending. IV Rocephin, orthopedics consult- appreciate recs. Consider knee effusion/fluid aspiration and testing to further guide treatment. PT/OT Pt on coumadin for Hx of DVT- INR currently 2.1. Was 3.3 on 11/06. Continue warfarin at this time. Recurrent DVT less likely given supratherapeutic INR a few days ago, and currently therapeutic. Otherwise as above.
[2023-11-08] MEDS ORDERED: fentaNYL citrate PF 100 MCG/2 ML VIAL IV STA (16:37)
--- NOTE | 2023-11-08 16:37 | Emergency Department Note ---
Impression & Plan Ambulatory dysfunction, Acute pain of right knee ED Provider Note HISTORY OF PRESENT ILLNESS: Patient is an 88-year-old female presenting with right knee pain and ambulatory dysfunction. Patient reports that she was diagnosed with right knee cellulitis 3 days ago in the emergency department. Reports that she was discharged home and for the last 3 days she has been unable to ambulate secondary to knee pain. States that she is normally ambulatory with a walker at home, but in the last 3 days secondary to the pain she has been unable to ambulate. Reports that 4 days ago she had stood up from her recliner and twisted and felt pain in her knee. She has been on Keflex for the last few days. Denies any fevers at home. Denies any numbness or tingling or weakness in her extremities. Reports that she lives home alone. Denies any chest pain or shortness of breath. ROS: as above PHYSICAL EXAM: Constitutional: Patient appears in no acute distress. HENT: Head: Normocephalic and atraumatic. Eyes: EOMI, PERRL Mouth/Throat: Mucous membranes moist. Neck: Trachea midline. Neck supple. Cardiovascular: RRR, No murmurs, rubs or gallops. Intact distal pulses. Pulmonary/Chest: No respiratory distress. Breath sounds clear and equal bilaterally. No wheezes or rales. Abdominal: Abdomen soft, no tenderness, rebound or guarding. Musculoskeletal: - RLE: No obvious open wounds, erythema or swelling to the knee. Able to flex and extend at the knee without eliciting any significant pain. Intact DP and PT pulses. Patient does have some slight edema around the ankle. Skin: Warm and dry. Psychiatric: Appropriate mood and affect for situation. Neurological: Alert and keenly responsive. CN II-XII grossly intact, moving all extremities equally and fully. MDM: - Vitals signs stable - History obtained via patient. Patient presents with right knee pain and ambulatory dysfunction. Patient reports she was diagnosed with right knee cellulitis 3 days ago in the ER and started on Keflex. She states for the last 3 days she has been unable to ambulate secondary to significant pain. Reports that she lives alone. States that 4 days ago she got up and turned to move and felt a twisting sensation or movement. She was supposed to follow-up with orthopedics this week, but states that she was unable to get up out of her recliner for the last 3 days and her family got concerned. Denies any trauma to the knee. Denies any fevers. - Chronic conditions affecting care: HLD; hx of DVT; anxiety; HTN - Differential diagnoses include, but are not limited to: cellulitis; knee fracture; knee dislocation; septic joint; electrolyte abnormality - Order placed for continuous cardiac monitoring. At this time, monitor showed rate of 75 bpm with normal sinus rhythm, per my interpretation. - External medical records reviewed. ER visit note dated 11/06/2023 was reviewed. Patient was diagnosed with cellulitis of the right hand started on Keflex. She was instructed on return precautions. - Laboratory workup interpreted by myself showed normal WBC; slight hypokalemia (K 3.4) - Xray right knee negative for fracture or dislocation, per my interpretation. Radiology notes small joint effusion. - Considered septic joint, but I am able to fully range the patient's right knee without eliciting significant pain. She has no significant overlying erythema or appreciable swelling. Will defer to orthopedic consultation on the inpatient setting. - Discussed results with patient and family at bedside. They expressed concern for the patient living home alone and being unable to care for herself at this time. Will admit for PT/OT assessment and potential placement. - Discussion was had with child care associate about patient's case and need for admission - Hospitalist consulted for admission - Patient admitted to [facility] Hospitalist service for further evaluation and management. ASSESSMENT AND PLAN: Diagnosis: right knee pain; ambulatory dysfunction Plan: admit Past Med/Surg History Medical History Anxiety Arthritis History of DVT (deep vein thrombosis) LLE (2000) s/p trauma/fracture- on warfarin History of uterine cancer s/p hysterectomy, no chemo/xrt Hyperlipidemia Hypertension Obesity Sleep apnea CPAP Surgical History H/O blepharoplasty History of appendectomy History of back surgery Lumbar discectomy History of cataract surgery R/L History of colonoscopy History of hysterectomy Total History of open reduction and internal fixation (ORIF) procedure LUE/elbow History of total knee replacement Right TKA: 07/14/19: LMA#4 + PNB at [facility] (multiple attempts at spinal at L3 and L4 without success > decision made to convert to [place]) History of total left hip arthroplasty Left MARIA L: 01/20/19: SAB x 1 attempt at L3-L4, MAC transitioned to general with LMA#4 due to patient inability to tolerate surgical stimulation despite spinal anesthesia History of total right hip arthroplasty Family History Mother Family hx of colon cancer Other Family history non-contributory No family history of adverse response to anesthesia Social History Smoking Status: Never smoker Second Hand Exposure: No; Do You Dip or Chew Tobacco: No; Hx Alcohol Use: No Hx Substance Use: No Preferred Language: Wallisian Communication Ability: Effective Medical Transport Specialist Required: No Beliefs That Will Affect Care: None marital status: / Current Living Situation: Alone Feels Safe at Home: Yes Assistive Devices: CPAP Allergies Allergies Allergy/AdvReac Type Severity Reaction Status Date / Time adhesive AdvReac Intermediate "skin Verified 10/03/23 15:15 pulled off" with adhesive sertraline AdvReac Intermediate Worsening Verified 10/03/23 15:15 of symptoms Home Meds Home Medications Medication Instructions Recorded Confirmed ascorbic acid (vitamin C) 1,000 mg 1,000 mg PO QAM 12/12/18 11/06/23 tablet (Vitamin C) simvastatin 10 mg tablet 10 mg PO HS 12/12/18 11/06/23 hydrochlorothiazide 12.5 mg tablet 12.5 mg PO QAM 11/30/19 11/06/23 meclizine 12.5 mg tablet 12.5 mg PO BID PRN Dizziness 06/10/20 11/06/23 vitamin E 268 mg (400 unit) capsule 400 unit PO QAM 06/10/20 11/06/23 fluticasone propionate 50 2 spray intranasal DAILY PRN Other 01/05/21 11/06/23 mcg/actuation nasal spray,suspension warfarin 5 mg tablet (Jantoven) 5 mg PO DAILY 01/05/21 11/06/23 acetaminophen 500 mg tablet 500 mg PO Q6H PRN Pain 07/08/23 11/06/23 carbidopa 25 mg-levodopa 100 mg 1 tab PO TID 07/08/23 11/06/23 tablet gabapentin 100 mg capsule See Rx Instructions .Route .COMPLEX 07/08/23 11/06/23 gabapentin 300 mg capsule 300 mg PO HS 07/08/23 11/06/23 losartan 50 mg tablet 50 mg PO QAM 07/08/23 11/06/23 furosemide 20 mg tablet 20 mg PO DAILY PRN Fluid Retention 11/06/23 11/06/23 Previous Rx's Medication Instructions Recorded cephalexin 500 mg capsule 500 mg PO TID 7 days #21 caps 11/06/23 Results & Data (ED) Vital Signs Vital Signs - 24 hr 11/08/23 11:07 Temperature 37.0 C Temperature Source Temporal Artery Scan Pulse Rate 75 Respiratory Rate 20 Blood Pressure 125/71 Blood Pressure Mean 89 Pulse Oximetry 97 Oxygen Delivery Method Room Air Sepsis Recent Fever Within 48 Hours No Sepsis New/Unexplained Change in Mental Status No Sepsis Action Taken by Nursing No Action Required Laboratory Data 11/08/23 11:45 11/08/23 11:45 Lab Results 11/08/23 Range/Units 11:45 WBC 8.55 (4.8-10.8) K/ul RBC 4.03 L (4.20-5.40) M/uL Hgb 11.5 L (12.0-16.0) g/dl Hct 35.5 L (37.0-47.0) % MCV 88.1 (80.0-100.0) fL MCH 28.5 (25.0-34.0) pg MCHC 32.4 (32.0-36.0) g/dL RDW Std Deviation 46.5 H (36.4-46.3) fL RDW Coeff of Nargis 14.5 (11.5-14.5) % Plt Count 341 (130-400) K/uL MPV 9.1 L (9.4-12.4) fL Immature Gran % (Auto) 0.4 % Neut % (Auto) 74.0 % Lymph % (Auto) 11.1 % [place] % (Auto) 14.2 % Eos % (Auto) 0.1 % Baso % (Auto) 0.2 % Neut # (Auto) 6.33 (1.40-6.50) K/uL Lymph # (Auto) 0.95 L (1.20-3.40) K/uL [place] # (Auto) 1.21 H (0.11-0.59) K/uL Eos # (Auto) 0.01 (0.00-0.50) K/uL Baso # (Auto) 0.02 (0.00-0.20) K/uL Immature Gran # (Auto) 0.03 (0.01-0.20) K/uL Sodium 137 (136-145) mmol/L Potassium 3.4 L (3.5-5.1) mmol/L Chloride 101 (98-107) mmol/L Carbon Dioxide 29 (21-32) mmol/L Anion Gap 7 (3-11) BUN 18 (6-23) mg/dl Creatinine 0.81 (0.6-1.2) mg/dl Est Cr Clr Drug Dosing Not Reportable Est GFR ( Amer) 75.7 ml/min Est GFR (Non-Af Amer) 65.3 ml/min BUN/Creatinine Ratio 22.2 H (10-20) Glucose 105 H (70-99(Fasting)) mg/dl Calcium 9.6 (8.6-10.3) mg/dl Total Bilirubin 0.6 (0.2-1.0) mg/dl AST 21 (13-39) U/L ALT 4 L (7-52) U/L Alkaline Phosphatase 71 (34-104) U/L Total Protein 7.2 (6.0-8.3) gm/dl Albumin 3.9 (3.4-5.0) gm/dl Globulin 3.3 (2.5-4.0) gm/dl Albumin/Globulin Ratio 1.2 (0.9-2) Imaging Data Radiologist's Impression: Knee X-Ray 11/08/23 11:09 XR knee RT 3V HISTORY: 88 years-old Female right knee pain acute right knee pain without reported trauma COMPARISON: 11/06/2023 TECHNIQUE: 3 views of the right knee FINDINGS: Total joint arthroplasty with patellar resurfacing. Small joint effusion has increased in size from prior. Demineralized appearance of the bones. No acute fracture, dislocation or evidence of hardware complication. Arterial calcifications. IMPRESSION: 1. No acute fracture or dislocation. 2. Unremarkable appearance of the total joint arthroplasty. 3. Small joint effusion. ACT 112: Negative or not required by law. The above report was generated using voice recognition software. It may contain grammatical, syntax or spelling errors. Electronically signed by: Braxton Schuster M.D. 11/08/2023 11:35 AM Discharge Plan Visit Data Chief Complaint: Knee Injury/Pain ED Provider: Mariely Loera Discharge Problem: Ambulatory dysfunction, Acute pain of right knee Forms Stand Alone Forms: My [facility] Prescriptions Prescriptions: No Action ascorbic acid (vitamin C) [Vitamin C] 1,000 mg Tablet 1,000 mg PO QAM simvastatin 10 mg Tablet 10 mg PO HS hydrochlorothiazide 12.5 mg tablet 12.5 mg PO QAM warfarin [Jantoven] 5 mg tablet 5 mg PO DAILY Hold Instructions: Resume on 07/13/23. Rx Instructions: Take 5mg by mouth on Wednesday, Wednesday, Wednesday, Wednesday. And 2.5mg by mouth on Wednesday, and Wednesday fluticasone propionate 50 mcg/actuation spray,suspension 2 spray intranasal DAILY PRN (Reason: Other) meclizine 12.5 mg Tablet 12.5 mg PO BID PRN (Reason: Dizziness) vitamin E 400 unit Capsule 400 unit PO QAM losartan 50 mg tablet 50 mg PO QAM acetaminophen 500 mg Tablet 500 mg PO Q6H PRN (Reason: Pain) gabapentin 300 mg capsule 300 mg PO HS gabapentin 100 mg capsule See Rx Instructions .ROUTE .COMPLEX Rx Instructions: Take 200mg by mouth in the morning, 200mg by mouth at noon and 100mg by mouth at supper time carbidopa-levodopa 25-100 mg tablet 1 tab PO TID furosemide 20 mg tablet 20 mg PO DAILY PRN (Reason: Fluid Retention) cephalexin 500 mg capsule 500 mg PO TID 7 Days Qty: 21 0RF Referrals Referrals: Cristhian Dumont MD [Primary Care Provider] -
[2023-11-08] MEDS ORDERED: POTASSIUM CHLORIDE CRTAB 20 MEQ TABCR PO STA (16:38)
[2023-11-08 17:02] LABS: INR 2.1 (0.9-1.1); Prothrombin Time 22.2 Seconds (9.0-12.0)
[2023-11-08] MEDS ORDERED: ACETAMINOPHEN 500 MG TAB PO STA (17:08)
[2023-11-08] MEDS ORDERED: ONDANSETRON INJ 2 MG/ML 2 ML VIAL IV PRN ×2 (17:14→18:50)
[2023-11-08] MEDS ORDERED: LIDOCAINE 5% 1 PATCH TD STA (17:19)
[2023-11-08] MEDS: ACETAMINOPHEN 500 MG TAB PO SCH (17:36)
[2023-11-08] MEDS ORDERED: OPTIRAY 320 500ml IV ONE (18:44)
[2023-11-08] MEDS ORDERED: ACETAMINOPHEN 325 MG TAB PO PRN (18:50)
[2023-11-08] MEDS ORDERED: FLUTICASONE PROPIONATE NA SPR 16 GM BTL PRN (18:50)
[2023-11-08] MEDS ORDERED: Patient's ALLERGY Info needs ENTERED STA (18:57)
--- NOTE | 2023-11-08 19:59 | CT Scan Report ---
Exam(s): CT RIGHT KNEE With Contrast IV Amt: 89 ml optiray 320 EXAM: CT Right Lower Extremity With Intravenous Contrast, Knee CLINICAL HISTORY: Reason for exam: Eval for abscess/jt infection, hx of cellulitis. TECHNIQUE: Axial computed tomography images of the right knee with intravenous contrast. CTDI is 20.57 mGy and DLP is 451.36 mGy-cm. Automated exposure control was utilized for the study. A dose lowering technique was utilized adhering to the principles of ALARA. CONTRAST: Patient received 89 ml optiray 320 of IV contrast COMPARISON: No relevant prior studies available. FINDINGS: Bones/joints: Status post RIGHT knee arthroplasty. No periprosthetic fracture, loosening, or dislocation. Osseous demineralization. Moderate knee joint effusion. Soft tissues: Unremarkable. No abnormal contrast enhancement. Other findings: Anatomic alignment. IMPRESSION: 1. Status post RIGHT knee arthroplasty. No periprosthetic fracture, loosening, or dislocation. 2. Anatomic alignment. 3. Moderate knee joint effusion. Electronically signed by: Marcelo Wise MD 11/08/23 19:58 PM
[2023-11-08] MEDS: cefTRIAXone SODIUM 2,000 MG in DEXTROSE 5 % MINI-B 50 ML IV SCH (20:28)
[2023-11-08] MEDS: SIMVASTATIN 10 MG TAB PO SCH (20:28)
[2023-11-08] MEDS: GABAPENTIN 300 MG CAP PO SCH (20:28)
[2023-11-08] MEDS: CARBIDOPA/LEVODOPA 25/100MG TAB PO SCH (20:28)
--- NOTE | 2023-11-08 20:59 | Ultrasound Report ---
Exam(s): US VENOUS RIGHT LOWER EXTREMITY EXAM: US Duplex Right Lower Extremity Veins CLINICAL HISTORY: Eval for dvt. TECHNIQUE: Real-time duplex ultrasound scan of the right lower extremity veins integrating B-mode two-dimensional vascular structure, Doppler spectral analysis, color flow Doppler imaging and compression. COMPARISON: No relevant prior studies available. FINDINGS: Deep veins: Unremarkable. No DVT in the visualized common femoral, femoral, proximal deep femoral or popliteal veins. The veins demonstrate normal color flow, are normally compressible, with normal phasic flow and/or augmentation response. The interrogated calf veins are patent. Superficial veins: Unremarkable. No thrombus in the saphenofemoral junction. Soft tissues: There is a heterogeneous lobulated predominantly anechoic structure in the right popliteal fossa, measuring 5.8 x 1.7 x 3. 5 cm without internal vascular flow. IMPRESSION: 1. No evidence for deep vein thrombosis involving the right lower extremity. 2. There is a heterogeneous lobulated predominantly anechoic structure in the posterior aspect of the right knee measuring 5.8 x 1.7 x 3.5 cm without internal vascular flow, consistent with a Ramsey's cyst. Electronically signed by: Alex Benítez MD 11/08/23 20:58 PM
[2023-11-09] MEDS: ACETAMINOPHEN 500 MG TAB PO SCH ×3 (01:04→17:48)
[2023-11-09 04:51] LABS: Hematocrit (blood only) 32.7 % (37.0-47.0); Hemoglobin 11.1 g/dl (12.0-16.0); Mean Corpuscular Hemoglobin 29.2 pg (25.0-34.0); Mean Corpuscular Hgb Conc 33.9 g/dL (32.0-36.0); Mean Corpuscular Volume 86.1 fL (80.0-100.0); Mean Platelet Volume 9.3 fL (9.4-12.4); Platelet Count 328 K/uL (130-400); RDW Coefficient of Variation 14.4 % (11.5-14.5); RDW Standard Deviation 45.2 fL (36.4-46.3); White Blood Count 6.18 K/ul (4.8-10.8)
[2023-11-09 05:05] LABS: BUN Creatinine Ratio 25.8 (10-20); Calcium 9.2 mg/dl (8.6-10.3); Creatinine Clr Calc Pharmacy 41.8 ml/min; Est GFR (African American) 67.5 ml/min; Est GFR (Non-African American) 58.3 ml/min; Potassium 4.2 mmol/L (3.5-5.1)
[2023-11-09 05:15] LABS: INR 2.1 (0.9-1.1)
[2023-11-09] MEDS: GABAPENTIN 100 MG CAP PO SCH ×2 (09:42→12:48)
[2023-11-09] MEDS: CARBIDOPA/LEVODOPA 25/100MG TAB PO SCH ×3 (09:42→20:19)
[2023-11-09] MEDS: LOSARTAN POTASSIUM 50 MG TAB PO SCH (09:42)
[2023-11-09] MEDS: hydroCHLOROthiazide 25 MG TAB PO SCH (09:42)
--- NOTE | 2023-11-09 14:38 | Orthopedic Consultation ---
Date of Service November 09, 2023 Assessment & Plan (1) Acute knee pain: Overall, patient states she is doing better today than she has been the last couple days. I had a long detailed discussion with the patient about her right knee pathology with ample amount of time for her to ask any questions or state any concerns. All questions and concerns were answered to the patient's satisfaction. At this point, her knee does not look like it is cellulitic but this could also be secondary due to the antibiotics working prior to evaluation. We would recommend her continuing with her oral Keflex until finish in which IV antibiotics may be discontinued. I do have a suspicion that the effusion that she is experiencing is hemarthrosis due to her twisting injury and being anticoagulated. This should resolve on its own. Would also recommend physical therapy and Occupational Therapy to work with her while she is inpatient. She does live on her own and may be better off going to a short-term rehabilitation unit for some one-on-one physical therapy. She may follow-up in 2 weeks with [facility] for continued care. Please reach out by [place] text or reach out to [facility] if this patient's situation is to change. I, Dr. Mynor Rivero, saw and examined Yadira at bedside. She is not having swelling of her knees. She is range of motion from 5 to 100 degrees. She is sore with range of motion. I have known Yadira for years. Her knees have always been sore. I do not see any acute events with her knees at this time. I did talk to her little bit about going to rehab versus returning home. She does live alone. However, she would rather have in-home physical therapy to work with her for about an hour a day. If she is safe to return home that might be a viable option. She just needs to do some strengthening of her legs. If you have any further questions please feel free to contact me personally on my cell phone [phone]. History of Present Illness Reason for Consultation: . Right knee pain Requesting Physician: . Attending Physician: Juni Gomes MD . Patient is an 88-year-old female who is resting comfortably in bed in no apparent distress. She is known to [facility] due to Dr. Rivero completing a right and left total knee arthroplasty on her. She arrived to [facility] emergency department yesterday complaining of right knee pain and ambulatory dysfunction. She noted that about 3 days ago, she was trying to get out of a chair whenever she twisted her right knee and had an immediate onset of right knee pain. She did note some swelling occurring to the right knee over the last couple days as well as having trouble with range of motion. An x-ray and CT was completed upon arrival here due to her history of cellulitis to the same extremity which revealed no obvious osseous abnormalities or loosening of the hardware but does show a mild to moderate joint effusion. She has been started on Keflex for presumed cellulitis of the right knee and since being admitted, they have started her on empiric IV antibiotics. She is on anticoagulation which is warfarin. No other orthopedic concerns at this point. Allergies Allergy/AdvReac Type Severity Reaction Status Date / Time adhesive AdvReac Intermediate "skin Verified 10/03/23 15:15 pulled off" with adhesive sertraline AdvReac Intermediate Worsening Verified 10/03/23 15:15 of symptoms Home Medications Medication Instructions Recorded Confirmed Type ascorbic acid (vitamin C) 1,000 mg 1,000 mg PO QAM 12/12/18 11/08/23 History tablet (Vitamin C) simvastatin 10 mg tablet 10 mg PO HS 12/12/18 11/08/23 History hydrochlorothiazide 12.5 mg tablet 12.5 mg PO QAM 11/30/19 11/08/23 History meclizine 12.5 mg tablet 12.5 mg PO BID PRN Dizziness 06/10/20 11/08/23 History vitamin E 268 mg (400 unit) capsule 400 unit PO QAM 06/10/20 11/08/23 History fluticasone propionate 50 2 spray intranasal DAILY PRN Other 01/05/21 11/08/23 History mcg/actuation nasal spray,suspension warfarin 5 mg tablet (Jantoven) 5 mg PO DAILY 01/05/21 11/08/23 History acetaminophen 500 mg tablet 500 mg PO Q6H PRN Pain 07/08/23 11/08/23 History carbidopa 25 mg-levodopa 100 mg 1 tab PO TID 07/08/23 11/08/23 History tablet gabapentin 100 mg capsule See Rx Instructions .Route .COMPLEX 07/08/23 11/08/23 History gabapentin 300 mg capsule 300 mg PO HS 07/08/23 11/08/23 History losartan 50 mg tablet 50 mg PO QAM 07/08/23 11/08/23 History cephalexin 500 mg capsule 500 mg PO TID 7 days #21 caps 11/06/23 11/08/23 Rx furosemide 20 mg tablet 20 mg PO DAILY PRN Fluid Retention 11/06/23 11/08/23 History Past Med/Surg History Medical History (Updated 11/09/23 @ 14:33 by Braxton Quezada PA-C) Hyperlipidemia Obesity History of uterine cancer s/p hysterectomy, no chemo/xrt Arthritis Anxiety History of DVT (deep vein thrombosis) LLE (2000) s/p trauma/fracture- on warfarin Sleep apnea CPAP Hypertension Surgical History H/O blepharoplasty History of cataract surgery R/L History of total knee replacement Right TKA: 07/14/19: LMA#4 + PNB at [facility] (multiple attempts at spinal at L3 and L4 without success > decision made to convert to [place]) History of total left hip arthroplasty Left MARIA L: 01/20/19: SAB x 1 attempt at L3-L4, MAC transitioned to general with LMA#4 due to patient inability to tolerate surgical stimulation despite spinal anesthesia History of total right hip arthroplasty History of colonoscopy History of appendectomy History of hysterectomy Total History of back surgery Lumbar discectomy History of open reduction and internal fixation (ORIF) procedure LUE/elbow Family History Mother Family hx of colon cancer Other Family history non-contributory No family history of adverse response to anesthesia Social History Smoking Status: Never smoker Second Hand Exposure: No; Do You Dip or Chew Tobacco: No; Hx Alcohol Use: No Hx Substance Use: No Preferred Language: Czech Communication Ability: Effective Veterinary Medicine Scientist Required: No Beliefs That Will Affect Care: None marital status: / Current Living Situation: Alone Other Information That Helps Us Care for You: No Feels Safe at Home: Yes Assistive Devices: Cane, CPAP and Walker Review of Systems All systems reviewed & are unremarkable except as noted in HPI & below. Physical Exam .General: awake, alert, no apparent distress, white female Head: Normocephalic, atraumatic ENT: PERRL, EOMI, no pharyngeal exudate, mucous membranes moist Chest: Clear to auscultation, on room air, no adventitious breath sounds Cardiac: Regular rate and rhythm, no murmur, no JVD, normal peripheral pulses, good capillary refill Abdominal: NABS x 4 quadrants, soft, nondistended, nontender to palpation, no rebound or guarding Psych: Normal mood and affect Neuro: AAO x 3, strength intact bilaterally and rated 5/5, no motor deficits, speech is clear, no peripheral sensory deficits Musculoskeletal Focused examination of the right knee reveals well-healed surgical incision to the anterior aspect of the knee as well as a joint effusion with no obvious erythema, ecchymosis, or other obvious deformities. No tenderness to palpation diffusely throughout the right knee joint. Limited range of motion with flexion 0 to 90 degrees before subjective discomfort. No laxity with valgus or varus stress. Calf soft nontender to palpation. Negative Homans' sign. +2 DP and PT pulses. Less than 2-second capillary refill. Normal sensation. Neurovascular intact. Results & Data Results & Data Laboratory Results . Laboratory Results - last 24 hr 11/08/23 11/09/23 11:44 04:22 WBC 6.18 RBC 3.80 L Hgb 11.1 L Hct 32.7 L MCV 86.1 MCH 29.2 MCHC 33.9 RDW Std Deviation 45.2 RDW Coeff of Nargis 14.4 Plt Count 328 MPV 9.3 L PT 22.2 H 22.0 H INR 2.1 H 2.1 H Sodium 136 Potassium 4.2 D Chloride 102 Carbon Dioxide 27 Anion Gap 7 BUN 23 Creatinine 0.89 Est Cr Clr Drug Dosing 41.8 Est GFR ( Amer) 67.5 Est GFR (Non-Af Amer) 58.3 BUN/Creatinine Ratio 25.8 H Glucose 91 Calcium 9.2 Diagnostic Findings . Knee X-Ray 11/08/23 11:09 XR knee RT 3V HISTORY: 88 years-old Female right knee pain acute right knee pain without reported trauma COMPARISON: 11/06/2023 TECHNIQUE: 3 views of the right knee FINDINGS: Total joint arthroplasty with patellar resurfacing. Small joint effusion has increased in size from prior. Demineralized appearance of the bones. No acute fracture, dislocation or evidence of hardware complication. Arterial calcifications. IMPRESSION: 1. No acute fracture or dislocation. 2. Unremarkable appearance of the total joint arthroplasty. 3. Small joint effusion. ACT 112: Negative or not required by law. The above report was generated using voice recognition software. It may contain grammatical, syntax or spelling errors. Electronically signed by: Braxton Schuster M.D. 11/08/2023 11:[address] 11/08/23 17:57 Exam(s): CT RIGHT KNEE With Contrast IV Amt: 89 ml optiray 320 EXAM: CT Right Lower Extremity With Intravenous Contrast, Knee CLINICAL HISTORY: Reason for exam: Eval for abscess/jt infection, hx of cellulitis. TECHNIQUE: Axial computed tomography images of the right knee with intravenous contrast. CTDI is 20.57 mGy and DLP is 451.36 mGy-cm. Automated exposure control was utilized for the study. A dose lowering technique was utilized adhering to the principles of ALARA. CONTRAST: Patient received 89 ml optiray 320 of IV contrast COMPARISON: No relevant prior studies available. FINDINGS: Bones/joints: Status post RIGHT knee arthroplasty. No periprosthetic fracture, loosening, or dislocation. Osseous demineralization. Moderate knee joint effusion. Soft tissues: Unremarkable. No abnormal contrast enhancement. Other findings: Anatomic alignment. IMPRESSION: 1. Status post RIGHT knee arthroplasty. No periprosthetic fracture, loosening, or dislocation. 2. Anatomic alignment. 3. Moderate knee joint effusion. Electronically signed by: Marcelo Wise MD 11/08/23 19:58 PM Venous Doppler Study 11/08/23 17:57 Exam(s): US VENOUS RIGHT LOWER EXTREMITY EXAM: US Duplex Right Lower Extremity Veins CLINICAL HISTORY: Eval for dvt. TECHNIQUE: Real-time duplex ultrasound scan of the right lower extremity veins integrating B-mode two-dimensional vascular structure, Doppler spectral analysis, color flow Doppler imaging and compression. COMPARISON: No relevant prior studies available. FINDINGS: Deep veins: Unremarkable. No DVT in the visualized common femoral, femoral, proximal deep femoral or popliteal veins. The veins demonstrate normal color flow, are normally compressible, with normal phasic flow and/or augmentation response. The interrogated calf veins are patent. Superficial veins: Unremarkable. No thrombus in the saphenofemoral junction. Soft tissues: There is a heterogeneous lobulated predominantly anechoic structure in the right popliteal fossa, measuring 5.8 x 1.7 x 3. 5 cm without internal vascular flow. IMPRESSION: 1. No evidence for deep vein thrombosis involving the right lower extremity. 2. There is a heterogeneous lobulated predominantly anechoic structure in the posterior aspect of the right knee measuring 5.8 x 1.7 x 3.5 cm without internal vascular flow, consistent with a Ramsey's cyst. Electronically signed by: Alex Benítez MD 11/08/23 20:58 PM PG Care Time/CCT Total # of Minutes Spent Total Time Spent with Patient: Total time spent is greater than 50% in coordination of care (as documented) at patient's floor/unit and/or counseling patient: Coding Level of Care Code 08030 IN/OBS CONSULT LVL 3,45M Diagnoses Acute pain of right knee M25.561 Laterality: right (1) Acute knee pain Laterality: right Qualified Code(s): M25.561 - Pain in right knee
--- NOTE | 2023-11-09 15:16 | Hospitalist Progress Note ---
Date of Service November 09, 2023 Assessment & Plan (1) Acute knee pain: (2) Cellulitis of knee, right: (3) Ambulatory dysfunction: Plan: Patient presented to the ED with pain in her right leg. She was recently in the ED for concern of cellulitis. On 11/06; ESR62, CRP8.4 - XR knee reviewed and does not have acute findings, -CT of right knee did not show any fracture/dislocation. Moderate knee joint effusion present -Venous duplexno DVT On ceftriaxone for treatment of overlying cellulitis. Orthopedic evaluated the patient; no acute intervention needed. Repeat ESR, CRP tomorrow a.m. PT OT evaluation; maintain rehab. 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 (5) Hypertension: Plan: - losartan potassium 50 daily, HCTZ 12.5 mg, BP is well controlled presently Continue both medications (6) Hyperlipidemia: Plan: - Cont simvastatin DVT ppx: Coumadin GI/FEN:HH diet CODE: FULL Dispo: From home; lives alone. Has right knee pain and ambulatory dysfunction. Awaiting PT OT evaluation. Possible rehab Please note the above document was generated using voice recognition software. It may contain grammatical, syntax or spelling errors. Any formal questions or concerns about the content, text or information contained within the body of this dictation should be directly addressed to the provider for clarification Admission and Anticipated Discharge Date Admission Date: November 08, 2023 Subjective Patient seen and examined at bedside. She is comfortably lying in the bed; not in distress. Review of Systems Review of Systems: All systems reviewed & are unremarkable except as noted in Subjective Physical Exam Physical Exam: Constitutional: Awake alert oriented x 3. Respiratory: normal respiratory effort, lungs clear to auscultation, no wheeze, rales, rhonchi. Normal insp/exp effort, no accessory muscle use Cardiovascular: RRR, no murmur, no edema Vessels: no JVD or carotid bruit Chest: normal inspection of chest Abdomen: normal bowel sounds, soft, nontender, no hepatosplenomegaly Musculoskeletal: Left leg bigger than right; chronic as per the patient due to previous DVT. No redness/erythema seen in the outlined area in the right knee. ROM painful. Skin: no rashes, warm and dry normal turgor Neurologic: PERRL, EOMI, accommodation nl, no face palsy, no dysarthria CN's II- XI intact bilaterally and moves all extremities Psychiatric: A+Ox3, euthymic affect Results & Data Results & Data Vital Signs (Past 12 Hours) Vital Signs Temp Pulse Pulse Resp BP BP Pulse Ox 11/09/23 14:24 36.7 C 66 16 136/69 95 11/09/23 10:19 75 17 139/75 95 11/09/23 07:06 60 11/09/23 06:00 58 L 19 119/55 L 94 11/09/23 05:00 57 L 16 129/58 L 95 11/09/23 04:00 55 L 16 110/55 L 95 O2 Del Method 11/09/23 14:24 Room Air 11/09/23 10:19 Room Air 11/09/23 07:06 11/09/23 06:00 11/09/23 05:00 11/09/23 04:00 Laboratory Results Laboratory Results WBC 6.18 K/ul (4.8-10.8) 11/09/23 04:22 RBC 3.80 M/uL (4.20-5.40) L 11/09/23 04:22 Hgb 11.1 g/dl (12.0-16.0) L 11/09/23 04:22 Hct 32.7 % (37.0-47.0) L 11/09/23 04:22 MCV 86.1 fL (80.0-100.0) 11/09/23 04:22 MCH 29.2 pg (25.0-34.0) 11/09/23 04:22 MCHC 33.9 g/dL (32.0-36.0) 11/09/23 04:22 RDW Std Deviation 45.2 fL (36.4-46.3) 11/09/23 04:22 RDW Coeff of Nargis 14.4 % (11.5-14.5) 11/09/23 04:22 Plt Count 328 K/uL (130-400) 11/09/23 04:22 MPV 9.3 fL (9.4-12.4) L 11/09/23 04:22 Immature Gran % (Auto) 0.4 % 11/08/23 11:45 Neut % (Auto) 74.0 % 11/08/23 11:45 Lymph % (Auto) 11.1 % 11/08/23 11:45 [place] % (Auto) 14.2 % 11/08/23 11:45 Eos % (Auto) 0.1 % 11/08/23 11:45 Baso % (Auto) 0.2 % 11/08/23 11:45 Neut # (Auto) 6.33 K/uL (1.40-6.50) 11/08/23 11:45 Lymph # (Auto) 0.95 K/uL (1.20-3.40) L 11/08/23 11:45 [place] # (Auto) 1.21 K/uL (0.11-0.59) H 11/08/23 11:45 Eos # (Auto) 0.01 K/uL (0.00-0.50) 11/08/23 11:45 Baso # (Auto) 0.02 K/uL (0.00-0.20) 11/08/23 11:45 Immature Gran # (Auto) 0.03 K/uL (0.01-0.20) 11/08/23 11:45 PT 22.0 Seconds (9.0-12.0) H 11/09/23 04:22 INR 2.1 (0.9-1.1) H 11/09/23 04:22 Sodium 136 mmol/L (136-145) 11/09/23 04:22 Potassium 4.2 mmol/L (3.5-5.1) D 11/09/23 04:22 Chloride 102 mmol/L (98-107) 11/09/23 04:22 Carbon Dioxide 27 mmol/L (21-32) 11/09/23 04:22 Anion Gap 7 (3-11) 11/09/23 04:22 BUN 23 mg/dl (6-23) 11/09/23 04:22 Creatinine 0.89 mg/dl (0.6-1.2) 11/09/23 04:22 Est Cr Clr Drug Dosing 41.8 ml/min 11/09/23 04:22 Est GFR ( Amer) 67.5 ml/min 11/09/23 04:22 Est GFR (Non-Af Amer) 58.3 ml/min 11/09/23 04:22 BUN/Creatinine Ratio 25.8 (10-20) H 11/09/23 04:22 Glucose 91 mg/dl (70-99(Fasting)) 11/09/23 04:22 Calcium 9.2 mg/dl (8.6-10.3) 11/09/23 04:22 Total Bilirubin 0.6 mg/dl (0.2-1.0) 11/08/23 11:45 AST 21 U/L (13-39) 11/08/23 11:45 ALT 4 U/L (7-52) L 11/08/23 11:45 Alkaline Phosphatase 71 U/L (34-104) 11/08/23 11:45 Total Protein 7.2 gm/dl (6.0-8.3) 11/08/23 11:45 Albumin 3.9 gm/dl (3.4-5.0) 11/08/23 11:45 Globulin 3.3 gm/dl (2.5-4.0) 11/08/23 11:45 Albumin/Globulin Ratio 1.2 (0.9-2) 11/08/23 11:45 Impressions Knee X-Ray 11/08/23 11:09 XR knee RT 3V HISTORY: 88 years-old Female right knee pain acute right knee pain without reported trauma COMPARISON: 11/06/2023 TECHNIQUE: 3 views of the right knee FINDINGS: Total joint arthroplasty with patellar resurfacing. Small joint effusion has increased in size from prior. Demineralized appearance of the bones. No acute fracture, dislocation or evidence of hardware complication. Arterial calcifications. IMPRESSION: 1. No acute fracture or dislocation. 2. Unremarkable appearance of the total joint arthroplasty. 3. Small joint effusion. ACT 112: Negative or not required by law. The above report was generated using voice recognition software. It may contain grammatical, syntax or spelling errors. Electronically signed by: Braxton Schuster M.D. 11/08/2023 11:[address] 11/08/23 17:57 Exam(s): CT RIGHT KNEE With Contrast IV Amt: 89 ml optiray 320 EXAM: CT Right Lower Extremity With Intravenous Contrast, Knee CLINICAL HISTORY: Reason for exam: Eval for abscess/jt infection, hx of cellulitis. TECHNIQUE: Axial computed tomography images of the right knee with intravenous contrast. CTDI is 20.57 mGy and DLP is 451.36 mGy-cm. Automated exposure control was utilized for the study. A dose lowering technique was utilized adhering to the principles of ALARA. CONTRAST: Patient received 89 ml optiray 320 of IV contrast COMPARISON: No relevant prior studies available. FINDINGS: Bones/joints: Status post RIGHT knee arthroplasty. No periprosthetic fracture, loosening, or dislocation. Osseous demineralization. Moderate knee joint effusion. Soft tissues: Unremarkable. No abnormal contrast enhancement. Other findings: Anatomic alignment. IMPRESSION: 1. Status post RIGHT knee arthroplasty. No periprosthetic fracture, loosening, or dislocation. 2. Anatomic alignment. 3. Moderate knee joint effusion. Electronically signed by: Marcelo Wise MD 11/08/23 19:58 PM Venous Doppler Study 11/08/23 17:57 Exam(s): US VENOUS RIGHT LOWER EXTREMITY EXAM: US Duplex Right Lower Extremity Veins CLINICAL HISTORY: Eval for dvt. TECHNIQUE: Real-time duplex ultrasound scan of the right lower extremity veins integrating B-mode two-dimensional vascular structure, Doppler spectral analysis, color flow Doppler imaging and compression. COMPARISON: No relevant prior studies available. FINDINGS: Deep veins: Unremarkable. No DVT in the visualized common femoral, femoral, proximal deep femoral or popliteal veins. The veins demonstrate normal color flow, are normally compressible, with normal phasic flow and/or augmentation response. The interrogated calf veins are patent. Superficial veins: Unremarkable. No thrombus in the saphenofemoral junction. Soft tissues: There is a heterogeneous lobulated predominantly anechoic structure in the right popliteal fossa, measuring 5.8 x 1.7 x 3. 5 cm without internal vascular flow. IMPRESSION: 1. No evidence for deep vein thrombosis involving the right lower extremity. 2. There is a heterogeneous lobulated predominantly anechoic structure in the posterior aspect of the right knee measuring 5.8 x 1.7 x 3.5 cm without internal vascular flow, consistent with a Ramsey's cyst. Electronically signed by: Alex Benítez MD 11/08/23 20:58 PM (1) Acute knee pain Laterality: right Qualified Code(s): M25.561 - Pain in right knee
[2023-11-09] MEDS: WARFARIN SOD 5 MG TAB PO SCH (20:18)
[2023-11-09] MEDS: GABAPENTIN 300 MG CAP PO SCH (20:19)
[2023-11-09] MEDS: cefTRIAXone SODIUM 2,000 MG in DEXTROSE 5 % MINI-B 50 ML IV SCH (20:20)
[2023-11-09] MEDS ORDERED: Nursing to Pharmacy Communication SCH (21:00)
[2023-11-09] MEDS: SIMVASTATIN 10 MG TAB PO SCH (22:19)
[2023-11-10] MEDS: ACETAMINOPHEN 500 MG TAB PO SCH ×3 (01:18→17:50)
[2023-11-10 07:10] LABS: Basophils # (auto) 0.02 K/uL (0.00-0.20); Basophils % (auto) 0.3 %; Eosinophils # (auto) 0.06 K/uL (0.00-0.50); Eosinophils % (auto) 0.9 %; Hematocrit (blood only) 34.3 % (37.0-47.0); Hemoglobin 11.6 g/dl (12.0-16.0); Immature Granulocytes # (auto) 0.01 K/uL (0.01-0.20); Immature Granulocytes % (auto) 0.1 %; Lymphocytes # (auto) 0.99 K/uL (1.20-3.40); Lymphocytes % (auto) 14.6 %; Mean Corpuscular Hemoglobin 28.9 pg (25.0-34.0); Mean Corpuscular Hgb Conc 33.8 g/dL (32.0-36.0); Mean Corpuscular Volume 85.5 fL (80.0-100.0); Monocytes # (auto) 0.87 K/uL (0.11-0.59); Monocytes % (auto) 12.8 %; Neutrophils # (auto) 4.83 K/uL (1.40-6.50); Neutrophils % (auto) 71.3 %; Platelet Count 397 K/uL (130-400); RDW Coefficient of Variation 14.1 % (11.5-14.5); RDW Standard Deviation 43.8 fL (36.4-46.3); Red Blood Count 4.01 M/uL (4.20-5.40); White Blood Count 6.78 K/ul (4.8-10.8)
[2023-11-10 07:31] LABS: BUN Creatinine Ratio 27.7 (10-20); C Reactive Protein 16.43 mg/dl (0-0.5); Calcium 9.4 mg/dl (8.6-10.3); Creatinine Clr Calc Pharmacy 44.8 ml/min; Est GFR (African American) 73.5 ml/min; Est GFR (Non-African American) 63.4 ml/min; Potassium 3.9 mmol/L (3.5-5.1)
[2023-11-10 07:39] LABS: INR 1.7 (0.9-1.1); Prothrombin Time 18.3 Seconds (9.0-12.0)
[2023-11-10] MEDS: hydroCHLOROthiazide 25 MG TAB PO SCH (09:03)
[2023-11-10] MEDS: CARBIDOPA/LEVODOPA 25/100MG TAB PO SCH ×3 (09:03→20:24)
[2023-11-10] MEDS: GABAPENTIN 100 MG CAP PO SCH ×2 (09:04→12:54)
[2023-11-10] MEDS: LOSARTAN POTASSIUM 50 MG TAB PO SCH (09:04)
[2023-11-10] MEDS: POLYETHYLENE (MIRALAX) 17 GM PACK PO SCH (14:02)
[2023-11-10] MEDS: DOCUSATE SODIUM 100 MG CAP PO SCH ×2 (14:02→20:24)
[2023-11-10] MEDS: WARFARIN SOD 5 MG TAB PO SCH (17:46)
--- NOTE | 2023-11-10 19:09 | Hospitalist Progress Note ---
Date of Service November 10, 2023 Assessment & Plan (1) Acute knee pain: (2) Cellulitis of knee, right: (3) Ambulatory dysfunction: Plan: Patient presented to the ED with pain in her right leg. She was recently in the ED for concern of cellulitis. On 11/06; ESR62, CRP8.4 - XR knee reviewed and does not have acute findings, -CT of right knee did not show any fracture/dislocation. 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, chronic, stable Monitor INR Adjust Coumadin as needed (5) Hypertension: Plan: - losartan potassium 50 daily, HCTZ 12.5 mg, BP is well controlled presently Continue above medications (6) Hyperlipidemia: Plan: - Continue simvastatin DVT Px: Coumadin CODE STATUS: FULL CODE Disposition Rehab as able Admission and Anticipated Discharge Date Admission Date: November 08, 2023 Subjective Patient is seen and examined at bedside States having bilateral knee pain today Denies any chest pain, dyspnea, dizziness, nausea, vomiting, abdominal pain 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 Review of Systems: All systems reviewed & are unremarkable except as noted in Subjective Physical Exam Physical Exam: Physical Exam: Vitals signs as noted above General Appearance:Moderately built and nourished, no apparent distress, Elderly Head: normocephalic, Atraumatic Eyes: normal inspection, EOMI Neck: supple, Trachea midline Respiratory/Chest: Normal breath sounds, CTA, No accessory muscle use Cardiovascular: S1, S2, No murmur Abdomen/GI:Soft, Non tender, Bowel sounds present Extremities/Musculoskeletal:normal inspection, Trace edema (L>R due to Chronic DVT per patient) Neurologic/Psych:AAOX3, grossly no focal neurological deficits Skin: normal color, warm Results & Data Results & Data Vital Signs (Past 12 Hours) Vital Signs Temp Pulse Resp BP Pulse Ox O2 Del Method 11/10/23 16:04 37.0 C 84 17 136/75 95 Room Air 11/10/23 08:30 Room Air 11/10/23 07:38 37.0 C 79 16 134/75 94 Room Air Laboratory Results Short CBC 11/10/23 Range/Units 06:54 WBC 6.78 (4.8-10.8) K/ul Hgb 11.6 L (12.0-16.0) g/dl Hct 34.3 L (37.0-47.0) % Plt Count 397 (130-400) K/uL BMP 11/10/23 06:54 Sodium 137 Potassium 3.9 Chloride 101 Carbon Dioxide 28 BUN 23 Creatinine 0.83 Glucose 97 Calcium 9.4 (1) Acute knee pain Laterality: right Qualified Code(s): M25.561 - Pain in right knee
[2023-11-10] MEDS: GABAPENTIN 300 MG CAP PO SCH (20:24)
[2023-11-10] MEDS: SIMVASTATIN 10 MG TAB PO SCH (20:25)
[2023-11-10] MEDS: cefTRIAXone SODIUM 2,000 MG in DEXTROSE 5 % MINI-B 50 ML IV SCH (20:26)
[2023-11-11] MEDS: ACETAMINOPHEN 500 MG TAB PO SCH ×2 (00:40→12:50)
[2023-11-11 08:21] LABS: INR 2.3 (0.9-1.1); Prothrombin Time 23.5 Seconds (9.0-12.0)
[2023-11-11] MEDS: DOCUSATE SODIUM 100 MG CAP PO SCH (09:26)
[2023-11-11] MEDS: hydroCHLOROthiazide 25 MG TAB PO SCH (09:26)
[2023-11-11] MEDS: LOSARTAN POTASSIUM 50 MG TAB PO SCH (09:26)
[2023-11-11] MEDS: GABAPENTIN 100 MG CAP PO SCH ×2 (09:27→12:47)
[2023-11-11] MEDS: POLYETHYLENE (MIRALAX) 17 GM PACK PO SCH (09:27)
[2023-11-11] MEDS: CARBIDOPA/LEVODOPA 25/100MG TAB PO SCH ×2 (09:28→13:16)
--- NOTE | 2023-11-11 12:06 | XRay Report ---
KUB CLINICAL HISTORY: Constipation. FINDINGS: 2 AP, portable, supine abdominal radiographs are correlated with lumbar spine radiographs d ated 05/24/2019. There is a nonobstructed abdominal gas pattern. Moderate fecal retention is seen thro ughout the colon. No evidence of intraperitoneal free air is seen on these supine images. There are n o abnormal abdominal calcifications. The skeletal structures are osteopenic and appear intact. There is moderate lumbosacral spondylosis. Bilateral hip arthroplasties are in place. IMPRESSION: No acute abnormality is identified. Electronically signed by: Sammy Piedra M.D. 11/11/2023 12:05 PM
--- NOTE | 2023-11-11 12:17 | CT Scan Report ---
CT head/brain wo con CLINICAL HISTORY: 88 years-old Female with confusion. Acutely altered mental status TECHNIQUE: Multiple axial CT images of the head were obtained without contrast. A dose lowering tech nique was utilized adhering to the principles of ALARA. CT DOSE: 703.85 mGy.cm COMPARISON: None. FINDINGS: Mildly motion degraded exam. No acute intracranial hemorrhage, midline shift, intracranial mass, hydr ocephalus, territorial ischemia or abnormal extra-axial collection. Involutional changes with chronic microvascular ischemic disease. The calvarium is intact. Prior bilateral lens repair. The paranasal sinuses, mastoid air cells, and m iddle ear cavities are clear. IMPRESSION: No acute intracranial abnormality. ACT 112: Negative or not required by law. The above report was generated using voice recognition software. It may contain grammatical, syntax o r spelling errors. Electronically signed by: Braxton Schuster M.D. 11/11/2023 12:15 PM
--- NOTE | 2023-11-11 13:18 | Discharge Summary ---
Discharge Summary Date of Service November 11, 2023 Notes For Next Care Provider acute knee pain, possible hemarthrosis due to her twisting injury and being anticoagulated Medication Changes From Visit bowel regimen added Admission HPI Per Admitting Provider This is an 88-year-old female with PMHx ofHTN, 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 Her original knee replacement was, pleated in February [address] Rivero. She had been admitted earlier this year in June for similar complaints with swelling and pain in her left knee was found to have a left knee hemiarthrosis in the setting of Coumadin use. Pt reports her left knee started hurting on Wednesday. She presented here to the ER on Wednesday where she was diagnosed with cellulitis with erythema and swelling and placed on Keflex PO. She started the Rx yesterday and had one dose today. Her pain is not any better and still is having much difficulty ambulating on it, but edema and erythema are improved. Her daughter is sitting with her at bedside and supports the history. Daughter is concerned as she lives at home alone, and is hoping for PT/OT therapy near her home in [facility]. For pain relieft, the patient has only used tylenol. She denies any fever, chills, trauma to the knee, falls, or other known injury. Admission Exam Per Admitting Provider General: awake, alert, no apparent distress, white female Head: Normocephalic, atraumatic ENT: PERRL, EOMI, no pharyngeal exudate, mucous membranes moist Chest: Clear to auscultation, on room air, no adventitious breath sounds Cardiac: Regular rate and rhythm, no murmur, no JVD, normal peripheral pulses, good capillary refill Abdominal: NABS x 4 quadrants, soft, nondistended, nontender to palpation, no rebound or guarding Extremities: S/p bilateral knee replacements, well healed. Right knee with residual outline from being seen here in the ER, erythema is contained within the outlined area, minimal tenderness with palpation along the joint line, pt is able to move knee but is painful, minimal edema BLE at ankles, nonpitting, otherwise normal inspection, no peripheral erythema, calfs nontender to pal pation Psych: Normal mood and affect Neuro: AAO x 3, strength intact bilaterally and rated 5/5, no motor deficits, speech is clear, no peripheral sensory deficits Principal Dx & Hospital Course #1 = Principal Diagnosis (1) Acute knee pain: (2) Cellulitis of knee, right: (3) Ambulatory dysfunction: (4) DVT (deep venous thrombosis): (5) Hypertension: (6) Hyperlipidemia: Plan Patient presented to the ED with pain in her right leg and initial concern for cellulitis which she had been on PO Keflex for. Knee XR reviewed and does not have acute findings, CT of right knee did not show any fracture/dislocation. Moderate knee joint effusion present. Venous duplex without evidence of DVT. Was initially treated with empiric rocephin but felt that cellulitis less likely and no indication to continue abx. Appreciate orthopedics input. Recommend inpatient rehab with plan for repeat x-rays and follow-up with orthopedics in 2 weeks. Also noted to have constipation during admission and bowel regimen was augmented. Patient passing flatus and KUB reveals moderate fecal retention but no obstruction. Continue bowel regimen. Patient hemodynamically stable at time of discharge to rehab. Discharge Exam Gen: WD/WN, NAD, sitting in bedside chair, A&Ox3 HEENT: Normocephalic, atraumatic, conjunctivae moist, sclerae anicteric, mucous membranes moist Lung: Clear to Auscultation bilaterally, no wheezes/rales/rhonchi Heart: Regular rate, regular rhythm, no murmurs, rubs, or gallops Abdomen: Soft, NT, ND +BS x 4 Extremities: Trace edema (L>R due to Chronic DVT per patient) Skin: Warm, no rash Updated Medication List Medication Instructions Recorded Confirmed Type ascorbic acid (vitamin C) 1,000 mg 1,000 mg PO QAM 12/12/18 11/08/23 History tablet (Vitamin C) simvastatin 10 mg tablet 10 mg PO HS 12/12/18 11/08/23 History hydrochlorothiazide 12.5 mg tablet 12.5 mg PO QAM 11/30/19 11/08/23 History meclizine 12.5 mg tablet 12.5 mg PO BID PRN Dizziness 06/10/20 11/08/23 History vitamin E 268 mg (400 unit) capsule 400 unit PO QAM 06/10/20 11/08/23 History fluticasone propionate 50 2 spray intranasal DAILY PRN Other 01/05/21 11/08/23 History mcg/actuation nasal spray,suspension warfarin 5 mg tablet (Jantoven) 5 mg PO DAILY 01/05/21 11/08/23 History acetaminophen 500 mg tablet 500 mg PO Q6H PRN Pain 07/08/23 11/08/23 History carbidopa 25 mg-levodopa 100 mg 1 tab PO TID 07/08/23 11/08/23 History tablet gabapentin 100 mg capsule See Rx Instructions .Route .COMPLEX 07/08/23 11/08/23 History gabapentin 300 mg capsule 300 mg PO HS 07/08/23 11/08/23 History losartan 50 mg tablet 50 mg PO QAM 07/08/23 11/08/23 History furosemide 20 mg tablet 20 mg PO DAILY PRN Fluid Retention 11/06/23 11/08/23 History docusate sodium 100 mg capsule 100 mg PO BID #10 caps 11/11/23 Rx polyethylene glycol 3350 17 gram 17 g PO DAILY #14 ea 11/11/23 Rx oral powder packet (Miralax) Hospital Stay Data Consultations 11/08/23 16:36 ED Decision to Admit Stat 11/08/23 17:57 Consult Orthopedic Surgery Routine Diagnostic Imagining Performed 11/08/23 17:57 CT knee RT w con Stat US venous doppler LE RT Stat 11/11/23 11:11 CT head/brain wo con Stat Pending Results Patient Have Any Pending Studies at Discharge: No Discharge Instructions Given to Patient (Per Discharging Provider) MEDICATION CHANGES: Continue Miralax once daily, Colace 100mg BID PO in setting of constipation. SUMMARY OF TEST RESULTS: You were admitted to hospital with ambulatory dysfunction 2/2 right knee pain XR knee reviewed and does not have acute findings, CT of right knee did not show any fracture/dislocation. Moderate knee joint effusion present Venous duplex without evidence of DVT PENDING TEST RESULTS: None RECOMMENDATIONS FOR FOLLOW-UP: Follow up with PCP as scheduled. Continue medication regimen as scheduled aside from changes noted above. Needs repeat x-rays and follow-up with orthopedics in 2 weeks Continue bowel regimen as above for constipation. OTHER INSTRUCTIONS: Seek medical attention if you have: * temperature above 101 * chest pain or trouble breathing * abdominal pain, nausea, vomiting * diarrhea, dark stools or bloody stools * any unanswered questions or concerns Call 911 if symptoms are severe. Please take good care of yourself. Call if you have any questions or problems. You can reach a [facility] hospitalist on duty at [facility] 24 hours a day by calling [phone]. Total Time Total Time Spent Total Time Spent (In Minutes): 40 Supervising Physician Co-Signing Physician Notes Patient is seen and examined at bedside. Offers no new complaints. Knee pain is controlled. Intermittently confused per RN. CT imaging showed no acute findings. Patient admits to have history of Parkinson's and occasionally confused due to Parkinson's at baseline. KUB today showed fecal retention but no signs of obstruction. Patient denies any nausea, vomiting, abdominal pain. Physical exam remains unchanged from yesterday. Patient plan to be discharged to rehab facility for further management. Bowel regimen to be continued while at rehab facility. Advised to follow-up with PCP, orthopedics upon discharge. I personally reviewed the record. Patient is interviewed and examined at bedside. Patient's care is coordinated with Arin Sawant PA-C. Please refer to the documentation above for details of patient's presentation and for discussion of other issues.
[2023-11-11] MEDS ORDERED: WARFARIN SOD 2.5 MG TAB PO SCH (16:00)
== END 2023-11-11 14:43 | DRG 914 ==
LOC: ED 10:41 → EDINP 16:36 → SUATTDRO 16:36 → 3N 18:51